=== PATIENT | female | born 2000 | race Caucasian/White ===

== ENCOUNTER 2021-12-03 21:56 | Emergency (ER) | payer OTHER, SELFPAY ==
[2021-12-03 21:58] VITALS: BP 143/90; PULSE 92; RESP 18; TEMP 36.2; O2SAT 100
[2021-12-03 22:14] VITALS: BP 133/100; PULSE 87; RESP 18; O2SAT 99
--- NOTE | 2021-12-03 22:24 | ED.FEVER ---
HPI - Fever General Chief Complaint: Fever Stated Complaint: 3 months preg, fever Time Seen by Provider: 12/03/21 22:03 Source: patient History of Present Illness HPI Narrative: 21-year-old female presents to the emergency room with complaints of a subjective fever for 7 days also complains of nausea with a couple episodes of vomiting multiple episodes of diarrhea over the past week. Patient reports being 3 months . 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 Denies dizziness lightheadedness nausea. No exposure to other ill contacts. Denies having shots for Covid or flu this season. Related Data Home Medications Medication Instructions Recorded Confirmed [id number] cap PO 12/03/21 [One-A-Day -1] Allergies Allergy/AdvReac Type Severity Reaction Status Date / Time No Known Allergies Allergy Mild Unverified 10/13/04 07:48 Review of Systems Review of Systems: CONSTITUTIONAL: Reports fever. EYES: Denies visual changes, redness, or discharge. ENT: Denies rhinorrhea, congestion, sore throat, or otalgia. CARDIOVASCULAR: Denies chest pain, palpitations, or edema. RESPIRATORY: Denies cough or dyspnea. GASTROINTESTINAL: Denies abdominal pain, nausea, vomiting, or diarrhea. GENITOURINARY: Denies dysuria or hematuria. SKIN: Denies rash or itching. MUSCULOSKELETAL: Denies back pain, joint pain, or myalgia. NEUROLOGIC: Denies headache, numbness, dizziness, or weakness. PSYCHIATRIC: Denies anxiety or depression. Exam Narrative: GENERAL: Well-appearing, well-nourished, and in no acute distress. HEAD: Normocephalic, atraumatic. EYES: PERRLA and EOMI. ENT: Nares clear, no rhinorrhea or epistaxis. Mucous membranes moist. NECK: Supple. No adenopathy or masses. No carotid bruits or JVD CHEST: Clear to auscultation. No respiratory distress. No wheezes rales or rhonchi HEART: Regular rate and rhythm. No murmur heard. Normal peripheral pulses. ABDOMEN: Soft, nontender, nondistended, normal active bowel sounds. EXTREMITIES: Normal range of motion. No edema. SKIN: Warm, dry, no rash. NEURO: No focal deficits. Alert and oriented x3. PSYCH: Normal mood and affect. 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 COVID-19 and influenza tests both negative. UA is clean. Patient given a liter of fluid and Zofran for nausea. Vital Signs Vital signs: Vital Signs Temperature 36.2 C L 12/03/21 21:58 Pulse Rate 92 12/03/21 21:58 Respiratory Rate 18 12/03/21 21:58 Blood Pressure 143/90 H 12/03/21 21:58 Pulse Oximetry 100 12/03/21 21:58 Temperature 36.2 C L 12/03/21 21:58 Pulse Rate 87 12/03/21 22:14 Respiratory Rate 18 12/03/21 22:14 Blood Pressure 133/100 H 12/03/21 22:14 Pulse Oximetry 99 12/03/21 22:14 MDM - Fever Lab Data Result diagrams: 12/03/21 22:56 12/03/21 22:57 Labs: Lab Results 12/03/21 12/03/21 12/03/21 Range/Units 22:56 22:56 22:56 WBC 10.6 H (4.5-10.0) K/mm3 RBC 4.10 L (4.2-5.4) M/mm3 Hgb 12.5 (12.0-15.0) g/dL Hct 36.9 L (37.0-47.0) % MCV 90.0 (80-100) fl MCH 30.5 (26-34) pg MCHC 33.9 (32-36) g/dl RDW 12.8 (11.5-14.5) % Plt Count 206 (150-375) k/mm3 MPV 10.4 (7.4-10.4) fl Immature Gran % (Auto) 0.5 (0-0.5) % Neut % (Auto) 64.6 (45.5-73.1) % Lymph % (Auto) 27.9 (18.3-44.2) % [place] % (Auto) 5.7 (2.6-8.5) % Eos % (Auto) 1.0 (0-4.4) % Baso % (Auto) 0.3 (0.2-1.2) % Lymph # (Auto) 2.95 (0.9-3.2) K/mm3 [place] # (Auto) 0.6 (0.1-0.6) K/mm3 Eos # (Auto) 0.1 (0-0.3) K/mm3 Baso # (Auto) 0.0 (0.0-0.1) K/mm3 Abs Immat Gran (auto) 0.05 H (0.00-0.031) K/mm3 Absolute Neuts (auto) 6.8 H (1.3-6.7) K/mm3 Absolute Nucleated RBC 0.0 (0.0-0.012) K/mm3 Nucleated RBC % 0.0 (0.0-0.2) % Sodium (137-145) mmol/L Potassium (3.4-5.0)
[2021-12-03] MEDS: ONDANSETRON INJ 4 MG/2 ML VIAL IV PUSH (22:56)
[2021-12-03] MEDS: SODIUM CHLORIDE 0.9% IV 1,000 ML 999 ML IV CONT (22:56)
[2021-12-03 23:12] LABS: Basophils Percent Auto 0.3 % (0.2-1.2); Eosinophils Absolute Auto 0.1 K/mm3 (0-0.3); Hematocrit 36.9 % (37.0-47.0); Hemoglobin 12.5 g/dL (12.0-15.0); Immature Granulocyte Absolute 0.05 K/mm3 (0.00-0.031); Immature Granulocyte Percent A 0.5 % (0-0.5); Lymphocytes Absolute Auto 2.95 K/mm3 (0.9-3.2); Lymphocytes Percent Auto 27.9 % (18.3-44.2); Mean Corpuscular HGB Conc 33.9 g/dl (32-36); Mean Corpuscular Hemoglobin 30.5 pg (26-34); Mean Platelet Volume 10.4 fl (7.4-10.4); Monocytes Absolute Auto 0.6 K/mm3 (0.1-0.6); Monocytes Percent Auto 5.7 % (2.6-8.5); Neutrophils Absolute Auto 6.8 K/mm3 (1.3-6.7); Neutrophils Percent Auto 64.6 % (45.5-73.1); Platelet Count Result 206 k/mm3 (150-375); Red Cell Distribution Width 12.8 % (11.5-14.5); White Blood Count 10.6 K/mm3 (4.5-10.0)
[2021-12-03 23:30] LABS: Alanine Aminotransferase 12 U/L (4-35); Albumin Level 4.1 g/dL (3.5-5.1); Alkaline Phosphatase 46 U/L (38-126); Anion Gap 11 mmol/L (8-16); Aspartate Amino Transferase 20 U/L (14-36); Bilirubin,Total 0.3 mg/dL (0.2-1.3); Blood Urea Nitrogen 12 mg/dL (7-17); Calcium 9.2 mg/dL (8.4-10.2); Carbon Dioxide 21 mmol/L (22-30); Chloride 105 mmol/L (98-107); Estimated Glomerular Filt Rate > 60; Glucose 109 mg/dL (65-110); Potassium 3.8 mmol/L (3.4-5.0); Sodium 137 mmol/L (137-145)
[2021-12-03 23:54] LABS: Influenza A QL RT-PCR Negative (Negative); Influenza B QL RT-PCR Negative (Negative); SARS-CoV-2 RNA PCR Negative
[2021-12-04 00:07] LABS: Add Urine Microscopic? NO; Appearance Urine Clear (Clear); Bilirubin Urine Negative (Negative); Blood Urine Negative (Negative); Color Urine Yellow (Yellow); Glucose Urine UA Negative (Negative); Ketones Urine Negative (Negative); Leukocyte Esterase Ur Negative LEU/UL (Negative); Nitrate Urine Negative (Negative); Protein Urine Negative (Negative); Specific Grav Ur 1.026 (1.001-1.035); Urobilinogen Urine Negative mg/dL (<2.0)
[2021-12-04 00:25] VITALS: BP 128/79; PULSE 75; RESP 18; O2SAT 98
== END 2021-12-04 00:27 | disposition home or self-care (01) ==
PROVIDERS: Emergency Provider Nurse Practitioner Family; PCP Physician Assistant
DX: K52.9 Noninfective gastroenteritis and colitis, unspecified (principal); Z20.822 Contact with and (suspected) exposure to COVID-19
CPT/HCPCS: 36415; 80053; 81003; 85025; 87502; 96361; 96374; 99284; C9803; J2405; J7030; U0003; U0005

== ENCOUNTER 2021-12-13 23:53 | Emergency (ER) | payer OTHER, SELFPAY ==
[2021-12-14 00:02] VITALS: BP 143/82; PULSE 81; RESP 18; TEMP 36.9; O2SAT 100
[2021-12-14 01:35] LABS: Basophils Percent Auto 0.3 % (0.2-1.2); Eosinophils Absolute Auto 0.1 K/mm3 (0-0.3); Hematocrit 34.7 % (37.0-47.0); Hemoglobin 11.7 g/dL (12.0-15.0); Immature Granulocyte Absolute 0.05 K/mm3 (0.00-0.031); Immature Granulocyte Percent A 0.6 % (0-0.5); Lymphocytes Absolute Auto 2.27 K/mm3 (0.9-3.2); Lymphocytes Percent Auto 25.2 % (18.3-44.2); Mean Corpuscular HGB Conc 33.7 g/dl (32-36); Mean Corpuscular Hemoglobin 30.5 pg (26-34); Mean Corpuscular Volume 90.4 fl (80-100); Mean Platelet Volume 10.4 fl (7.4-10.4); Monocytes Absolute Auto 0.5 K/mm3 (0.1-0.6); Neutrophils Percent Auto 66.9 % (45.5-73.1); Platelet Count Result 190 k/mm3 (150-375); Red Blood Count 3.84 M/mm3 (4.2-5.4); Red Cell Distribution Width 12.8 % (11.5-14.5)
[2021-12-14 01:39] LABS: Add Urine Microscopic? NO; Appearance Urine Clear (Clear); Bilirubin Urine Negative (Negative); Blood Urine Negative (Negative); Color Urine Colorless (Yellow); Glucose Urine UA Negative (Negative); Ketones Urine Negative (Negative); Leukocyte Esterase Ur Negative LEU/UL (Negative); Nitrate Urine Negative (Negative); Protein Urine Negative (Negative); Specific Grav Ur 1.006 (1.001-1.035); Urobilinogen Urine Negative mg/dL (<2.0)
[2021-12-14 01:44] LABS: Alanine Aminotransferase 18 U/L (4-35); Albumin Level 4.1 g/dL (3.5-5.1); Alkaline Phosphatase 41 U/L (38-126); Anion Gap 5 mmol/L (8-16); Aspartate Amino Transferase 21 U/L (14-36); Bilirubin,Total 0.4 mg/dL (0.2-1.3); Blood Urea Nitrogen 10 mg/dL (7-17); Calcium 9.1 mg/dL (8.4-10.2); Carbon Dioxide 22 mmol/L (22-30); Chloride 109 mmol/L (98-107); Estimated CRCL calculation 199 ml/min; Estimated Glomerular Filt Rate > 60; Glucose 101 mg/dL (65-110); Sodium 136 mmol/L (137-145)
--- NOTE | 2021-12-14 02:10 | ED.FEMALEGU ---
HPI - Female Genitourinary General Chief complaint: Vaginal Bleeding Stated complaint: Vag Bleeding, 13 weeks preg Time Seen by Provider: 12/14/21 01:01 Source: patient History of Present Illness HPI Narrative: Patient presents with concerns for vaginal bleeding. Patient noted blood on the tissue paper when she urinated as well as some right-sided pelvic pain so she came to ER for evaluation. Her has been going well she has had prior ultrasound to confirm intrauterine . Treatment/time on arrival to the ER is not noted any additional bleeding. Denies any lightheadedness or dizziness. Denies any nausea or vomiting Related Data Home Medications Medication Instructions Recorded Confirmed [id number] cap PO 12/03/21 [One-A-Day -1] Allergies Allergy/AdvReac Type Severity Reaction Status Date / Time No Known Allergies Allergy Mild Unverified 10/13/04 07:48 Review of Systems Review of Systems: CONSTITUTIONAL: Denies fever, chills, or sweats. EYES: Denies visual changes, redness, or discharge. ENT: Denies rhinorrhea, congestion, sore throat, or otalgia. CARDIOVASCULAR: Denies chest pain, palpitations, or edema. RESPIRATORY: Denies cough or dyspnea. GASTROINTESTINAL: Denies nausea, vomiting, or diarrhea. GENITOURINARY: Denies dysuria or hematuria. SKIN: Denies rash or itching. MUSCULOSKELETAL: Denies back pain, joint pain, or myalgia. NEUROLOGIC: Denies headache, numbness, dizziness, or weakness. PSYCHIATRIC: Denies anxiety or depression. All systems reviewed & are unremarkable except as noted in HPI and below Exam Narrative: GENERAL: Well-appearing, well-nourished, and in no acute distress. HEAD: Normocephalic, atraumatic. EYES: PERRLA and EOMI. ENT: Nares clear, no rhinorrhea or epistaxis. Mucous membranes moist. NECK: Supple. No masses. No JVD CHEST: Clear to auscultation. No respiratory distress. No wheezes rales or rhonchi HEART: Regular rate and rhythm. No murmur heard. Normal peripheral pulses. ABDOMEN: Minimal tenderness with deep palpation in the lower abdomen soft, nondistended, normal active bowel sounds. EXTREMITIES: Normal range of motion. No edema. SKIN: Warm, dry, no rash. NEURO: No focal deficits. Alert and oriented x3. PSYCH: Normal mood and affect. Course Vital Signs Vital signs: Vital Signs Temperature 36.9 C 12/14/21 00:02 Pulse Rate 81 12/14/21 00:02 Respiratory Rate 18 12/14/21 00:02 Blood Pressure 143/82 H 12/14/21 00:02 Pulse Oximetry 100 12/14/21 00:02 Temperature 36.9 C 12/14/21 00:02 Pulse Rate 84 12/14/21 04:45 Respiratory Rate 18 12/14/21 04:45 Blood Pressure 133/77 12/14/21 04:45 Pulse Oximetry 100 12/14/21 04:45 Procedures Other Procedure Procedure 1: Other Procedure: Transabdominal ultrasound performed there is good movement heart rate of one fifty single intrauterine no masses noted on the adnexa No free fluid noted in the pelvis findings consistent with single intrauterine MDM - Female Genitourinary MDM Narrative Medical decision making narrative: H&P as above, vss, pt looks clinically well, exam reassuring, labs reassuring, img reassuring, additional labs/img considered, symptomatic relief available as needed, on reevaluation pt continues to looks clinically well. Suspect first trimester bleeding, dns active miscarriage, ectopic, significant hemorrhage. plan to tx/monitor as op w/ OB f/u findings/plan discussed with pt, pt agree/comfortable with plan, return precautions given Lab Data Result diagrams: 12/14/21 01:28 12/14/21 01:28 Labs: Lab Results 12/14/21 12/14/21 12/14/21 Range/Units 01:28 01:28 01:28 WBC 9.0 (4.5-10.0) K/mm3 RBC 3.84 L (4.2-5.4) M/mm3 Hgb 11.7 L (12.0-15.0) g/dL Hct 34.7 L (37.0-47.0) % MCV 90.4 (80-100) fl MCH 30.5 (26-34) pg MCHC 33.7 (32-36) g/dl RDW
[2021-12-14] MEDS: SODIUM CHLORIDE 0.9% IV 1,000 ML 999 ML IV CONT (02:50)
[2021-12-14 04:45] VITALS: BP 133/77; PULSE 84; RESP 18; O2SAT 100
== END 2021-12-14 04:48 | disposition home or self-care (01) ==
PROVIDERS: Emergency Provider Emergency Medicine; PCP Physician Assistant
DX: O20.0 Threatened abortion (principal); Z3A.13 13 weeks gestation of pregnancy
CPT/HCPCS: 36415; 80053; 81003; 84702; 85025; 85461; 96360; 96361; 99283; J7030

== ENCOUNTER 2022-03-21 20:39 | Emergency (ER) | payer OTHER, SELFPAY ==
[2022-03-21 21:05] VITALS: BP 152/88; PULSE 101; RESP 18; TEMP 36.8; O2SAT 100
[2022-03-21 21:51] VITALS: O2SAT 100
--- NOTE | 2022-03-21 21:51 | ED.URI ---
HPI - URI/Sore Throat General Chief Complaint: Upper Respiratory Infection Stated Complaint: bodyaches 27wks pg Time Seen by Provider: 03/21/22 21:14 History of Present Illness HPI Narrative: 22-year-old female who is 27 weeks presents with URI symptoms, states she has been having runny nose, chills and body aches, and that her brother has also been sick, symptoms have been going on for about 2 days. No nausea or vomiting. Has been taking some Tylenol at home with some improvement Related Data Home Medications Medication Instructions Recorded Confirmed vit 168-iron 27 mg-folic cap PO 12/03/21 acid 800 mcg-omega3 235 mg capsule (One-A-Day -1) aspirin 81 mg tablet 81 mg PO DAILY 03/21/22 Allergies Allergy/AdvReac Type Severity Reaction Status Date / Time No Known Allergies Allergy Mild Unverified 03/21/22 21:08 Review of Systems Review of Systems: CONST: Chills HEENT: Runny nose C/V: No chest pain RESP: No cough GI: Reports abdominal pain, nausea, vomiting[, diarrhea] : No dysuria. M/S: No joint pain. SKIN: No rash. NEURO: [No headache or focal numbness or weakness] PSYCH: [No depression] [facility] Past Medical History Medical History (Updated 03/21/22 @ 23:26 by Eileen Ferris MD) Hypertension Social History Social History (Updated 03/21/22 @ 23:21 by Eileen Ferris MD) Smoking status: Never smoker Exam Narrative: EXAMINATION OF ORGAN SYSTEMS/BODY AREAS: Constitutional: Vital signs per nursing GENERAL:[No acute distress, non-toxic appearing.] HEAD: Normal with no signs of head trauma. EYES: EOMI, conjunctiva normal ENT: Rhinorrhea LUNGS: Nonlabored breathing. HEART: Minimally tachycardic ABD: [Soft], [nontender to palpation], gravid EXT: Normal range of motion SKIN: [No rashes or lesions.] NEURO: [Alert and oriented x 3. No gross focal sensory or strength deficits.] PSYCH: Normal affect Course Vital Signs Vital signs: Vital Signs Temperature 98.3 F 03/21/22 21:05 Pulse Rate 101 H 03/21/22 21:05 Respiratory Rate 18 03/21/22 21:05 Blood Pressure 152/88 H 03/21/22 21:05 Pulse Oximetry 100 03/21/22 21:05 Oxygen Delivery Room Air 03/21/22 21:05 Temperature 98.3 F 03/21/22 21:05 Pulse Rate 101 H 03/21/22 21:05 Respiratory Rate 18 03/21/22 21:05 Blood Pressure 152/88 H 03/21/22 21:05 Pulse Oximetry 100 03/21/22 21:05 Oxygen Delivery Room Air 03/21/22 21:05 MDM - URI/Sore Throat MDM Narrative Medical decision making narrative: 22-year-old female presenting with URI symptoms, vital signs within acceptable limits, she is well-appearing on exam in no distress, swabs obtained and she is positive for COVID. Stable for discharge home at this time, she is given strict return precautions and urged to follow-up with her doctor, I have asked her to call local hospitals for monoclonal antibody infusion given she is high risk with her . Discharge Plan Discharge Clinical Impression: COVID-19 Patient Disposition: Home, Self-Care Condition: Stable Instructions: Antibiotic Form, COVID-19 (Coronavirus Disease 2019) (ED) Additional Instructions: Please call your doctor in the morning, you would likely benefit from monoclonal antibody infusion for your COVID infection; please ask your doctor if they are able to order the infusion for you, or call local hospitals to see if you can schedule the infusion. Come back if you feel worse or have any trouble breathing or keeping food/water down, stay hydrated and take tylenol as you need for symptoms. Prescriptions: No Action aspirin 81 mg Tablet 81 mg PO DAILY One-A-Day -1 27 mg iron- 800 mcg-235 mg Capsule PO Follow-up/Referrals: Ileana,JJ Tierney [Primary Care Provider] -
[2022-03-21 23:02] LABS: Influenza A QL RT-PCR Negative (Negative); Influenza B QL RT-PCR Negative (Negative); SARS-CoV-2 RNA PCR Positive
[2022-03-21 23:27] VITALS: BP 147/83; PULSE 96; RESP 22; TEMP 36.3; O2SAT 98
== END 2022-03-21 23:33 | disposition home or self-care (01) ==
PROVIDERS: Emergency Provider Emergency Medicine; PCP Physician Assistant
DX: O98.512 Other viral diseases complicating pregnancy, second trimester (principal); U07.1 COVID-19; O16.2 Unspecified maternal hypertension, second trimester; Z3A.27 27 weeks gestation of pregnancy; Z79.82 Long term (current) use of aspirin
CPT/HCPCS: 87502; 99283; C9803; U0003; U0005

== ENCOUNTER 2022-05-04 17:20 | Observation (INO) | payer OTHER, SELFPAY ==
[2022-05-04] VITALS (11 sets, daily range): BP systolic 116–145; BP diastolic 56–79; PULSE 83–116; TEMP 36.6; BMI 51.6
[2022-05-04 18:17] LABS: Appearance Urine Slightly Cloudy (Clear); Bilirubin Urine Negative (Negative); Blood Urine Negative (Negative); Glucose Urine UA Negative (Negative); Ketones Urine Negative (Negative); Leukocyte Esterase Ur Negative LEU/UL (Negative); Nitrate Urine Negative (Negative); Protein Urine Negative (Negative); Specific Grav Ur 1.015 (1.001-1.035); Urobilinogen Urine 0.2 mg/dL (<2.0)
--- NOTE | 2022-05-04 18:20 | OBADM ---
This patient, Gwendolyn Desouza, admitted to the OB room OB Post 115 for observation. Patient/family oriented to hospital policies and general routines including ID bracelet, bed and alarms, visiting hours, pain management, procedures, bathroom and other care routines, personal items, smoking policy, room service/diet, and visiting hours. Patient/Family are encouraged to report perceived risks to care and to ask questions if they do not understand what they are told or what they should do.
[2022-05-04 18:23] LABS: Amorphous Sediment Urine Few; Bacteria Urine Trace /hpf; RBC Urine 0-2 /hpf (0-2); Squamous Epithelial Cell Urine Occasional /hpf (Few); WBC Urine 0-3 /hpf
[2022-05-04 18:31] LABS: Add Urine Microscopic? NO; Color Urine Light Yellow (Yellow)
[2022-05-04] MEDS: HYDROcodone/acetaminophen (*CRX) 5-325 MG TABLET 1 TAB PO (19:21)
[2022-05-04] MEDS: NIFEdipine 10 MG CAPSULE PO (19:22)
--- NOTE | 2022-05-21 09:15 | P.PNOB_ITS ---
OB - Triage/Final Diagnosis Visit Information Comments/Additional reasons for admission: I have assessed the risk for this patient, Gwendolyn Desouza, and determined that she would benefit from observation care. Evaluation Laboratory results: Laboratory Tests 05/04/22 18:09 Urine Color Light yellow Urine Appearance Slightly cloudy Urine pH 7.0 Ur Specific [place] 1.015 Urine Protein Negative Urine Glucose (UA) Negative Urine Ketones Negative Ur Blood (Man) Negative Urine Nitrate Negative Urine Bilirubin Negative Urine Urobilinogen 0.2 Leukocyte Esterase Rfl Negative Urine RBC 0-2 Urine WBC 0-3 Ur Squamous Epith Cells Occasional Amorphous Sediment Few H Urine Bacteria Trace Hyaline Casts 1-2 Final Diagnosis (1) Vaginal bleeding during : Code(s): O46.90 - Antepartum hemorrhage, unspecified, unspecified trimester Status: Acute
== END 2022-05-04 21:06 | disposition home or self-care (01) ==
PROVIDERS: Obstetrics & Gynecology; Admitting Provider Obstetrics & Gynecology; PCP Physician Assistant; Visit Provider Obstetrics & Gynecology
DX: O46.93 Antepartum hemorrhage, unspecified, third trimester (principal); Z3A.33 33 weeks gestation of pregnancy
CPT/HCPCS: 81003; A9270; G0378; G0379

== ENCOUNTER 2022-06-05 04:42 | Inpatient (IN) | payer OTHER, SELFPAY ==
[2022-06-05] VITALS (46 sets, daily range): BP systolic 108–151; BP diastolic 48–90; PULSE 68–101; RESP 17; TEMP 36.5–36.9; O2SAT 100; BMI 53.3
--- NOTE | 2022-06-05 04:47 | LDADM ---
This patient, Gwendolyn Desouza, was admitted to Labor/Delivery/Recovery 106 on 06/05/22 at 04:42. Plans for labor, pain management and were discussed with patient. Patient/family oriented to hospital policies and general routines including ID bracelet, bed and alarms, visiting hours, pain management, procedures, bathroom and other care routines, personal items, smoking policy, room service/diet and guest tray routines, infant security routines, and visiting hours. Patient/Family are encouraged to report perceived risks to care and to ask questions if they do not understand what they are told or what they should do. See OBIX for further documentation.
--- OUTSIDE RECORDS SUMMARY | 2022-06-05 04:49 | XMS_ITS | Encounter Summary ---
:2000 Author Care Team Providers Name Role Phone Ana Rosa GARDNER Primary Care Provider [phone] Reason for Visit None recorded. Assessment and Plan 1. Pre-existing maternal disease compli cating ? US, obstetric, follow-up ? US, obstetric, biophysical profile + non-stress test Discussion Note: None recorded.Patient educational handouts: No information available. Plan of Care Reminders Provider Appointments None recorded. ? ? Lab None recorded. ? ? Referral None recorded. ? ? Procedures None recorded. ? ? Surgeries None recorded. ? ? Imaging US, Obstetric, Follow-up 05/24/2022 [place] ? US, Obstetric, Biophysical Profile + [place] Non-stress Test Medications Name Start Date ? ? aspirin ? nifedipine ER 30 mg tablet,extended release 24 hr ? TAKE 1 TABLET BY MOUTH EVERY DAY ? Medications Administered None recorded. Vitals None recorded. Results Lab Results None recorded. Allergies Code Code System Name Reaction Severity Onset NKDA ? ? ? Problems Name Status Onset Date Source ? Maternal Obesity Complicating , Childbirth and the Acti ve 11/23/2021 ? Puerperium, Antepartum Body Mass Index 40+ - Severely Obese Active 11/23/2021 ? Active 12/07/2021 ? Covid-19 Active 03/21/2022 ? Group B Streptococcus Carrier Active 05/29/2022 ? Anxiety Active ? ? Hypertension Complicating , Childbirth and the
--- OUTSIDE RECORDS SUMMARY | 2022-06-05 04:49 | XMS_ITS | Encounter Summary ---
:2000 Author Care Team Providers Name Role Phone Ana Rosa GARDNER Primary Care Provider [phone] Reason for Visit None recorded. Assessment and Plan 1. Maternal obesity complicating pregna ncy, childbirth and the puerperium, antepartum ? non-stress test Discussion Note: None recorded.Patient educational handouts: No information available. Plan of Care Reminders Provider Appointments None recorded. ? ? Lab None recorded. ? ? Referral None recorded. ? ? Procedures None recorded. ? ? Surgeries None recorded. ? ? Imaging Non-stress Test 05/31/2022 [place] Medications Name Start Date ? ? aspirin [...] ? Hypertension Complicating , Childbirth and the Active ? ? Puerperium, Antepartum Procedures Date Name Performed by ?
--- OUTSIDE RECORDS SUMMARY | 2022-06-05 04:49 | XMS_ITS | Encounter Summary ---
:2000 Author Care Team Providers Name Role Phone Ana Rosa GARDNER Primary Care Provider [phone] Reason for Visit None recorded. Assessment and Plan 1. Maternal obesity complicating pregna ncy, childbirth and the puerperium, antepartum ? US, obstetric, biophysical profile + non-stress test Discussion Note: None recorded.Patient educational handouts: No information available. Plan of Care Reminders Provider Appointments None recorded. ? ? Lab None recorded. ? ? Referral None recorded. ? ? Procedures None recorded. ? ? Surgeries None recorded. ? ? Imaging US, Obstetric, Biophysical Profile + [place] Non-stress Test Medications Name Start Date ? [...]
--- OUTSIDE RECORDS SUMMARY | 2022-06-05 04:49 | XMS_ITS | Encounter Summary ---
:2000 Author Care Team Providers Name Role Phone Ana Rosa GARDNER Primary Care Provider [phone] Reason for Visit None recorded. Assessment and [...] None recorded. ? ? Imaging Non-stress Test 05/17/2022 [place] Medications Name Start Date ? ? aspirin [...]
--- OUTSIDE RECORDS SUMMARY | 2022-06-05 04:49 | XMS_ITS | Encounter Summary ---
:2000 Author Care Team Providers Name Role Phone Ana Rosa GARDNER Primary Care Provider [phone] Reason for Visit OB visit Assessment and Plan Assessment Note Patient is ___weeks . Discussed plan. 1. Group B Streptococcus carrier 2. Hypertension complicating , childbirth and the puerperium, antepartum Discussion Note: None recorded.Patient educational handouts: No information available. Plan of Care Reminders Provider Appointments None recorded. ? ? Lab None recorded. ? ? Referral None recorded. ? ? Procedures None recorded. ? ? Surgeries None recorded. ? ? Imaging None recorded. ? ? Medications Name Start Date ? ? aspirin ? nifedipine ER 30 mg tablet,extended release 24 hr ? TAKE 1 TABLET BY MOUTH EVERY DAY ? Medications Administered None recorded. Vitals Height Weight BMI Blood Pressure 5 ft 4 in 319 lbs 54.8 kg/m2 (1) 150/82 mm[H g] (2) 135/77 mm[Hg ] Results Lab Results None recorded. Allergies Code Code System Name Reaction Severity Onset NKDA ? ? ? Problems Name Status Onset Date Source ? Maternal Obesity Complicating , Childbirth and the Acti ve 11/23/2021 ? Puerperium, Antepartum Body Mass Index 40+ - Severely Obese Active 11/23/2021 ? Active 12/07/2021 ? Covid-19 Active 03/21/2022 ? Group B Streptococcus Carrier Active 0
--- OUTSIDE RECORDS SUMMARY | 2022-06-05 04:49 | XMS_ITS | Encounter Summary ---
:2000 Author Care Team Providers Name Role Phone Ana Rosa GARDNER Primary Care Provider [phone] Reason for Visit None recorded. Assessment and Plan 1. Chronic hypertension complicating AN D/OR reason for care during ? non-stress test Discussion Note: None recorded.Patient educational handouts: No information available. Plan of Care Reminders Provider Appointments None recorded. ? ? Lab None recorded. ? ? Referral None recorded. ? ? Procedures None recorded. ? ? Surgeries None recorded. ? ? Imaging Non-stress Test 05/24/2022 [place] Medications Name Start Date ? ? aspirin [...] Antepartum Procedures Date Name Performed by ? 10/15/2011 Procedu
--- OUTSIDE RECORDS SUMMARY | 2022-06-05 04:49 | XMS_ITS | Encounter Summary ---
:2000 Author Care Team Providers Name Role Phone Ana Rosa GARDNER Primary Care Provider [phone] Reason for Visit OB visit Assessment and Plan 1. Hypertension complicating , childbirth and the puerperium, antepartum 2. Maternal obesity complicating pregna ncy, childbirth and the puerperium, antepartum Discussion Note: [...] BMI Blood Pressure 5 ft 4 in 320 lbs 54.9 kg/m2 131/83 mm[Hg] Results Lab Results None recorded. Allergies Code [...]
--- OUTSIDE RECORDS SUMMARY | 2022-06-05 04:49 | XMS_ITS | Encounter Summary ---
:2000 Author Care Team Providers Name Role Phone Ana Rosa GARDNER Primary Care Provider [phone] Reason for Visit OB visit OB [id number] EDC 06/17/2022 LMP 09/10/2021 Assessment and Plan Assessment Note Patient is __34_weeks . Discuss ed plan. 1. Routine care Discussion Note: None recorded.Patient educational handouts: No [...] BMI Blood Pressure 5 ft 4 in 310 lbs 53.2 kg/m2 138/82 mm[Hg] Results Lab Results None recorded. Allergies [...] Anxiety Active ? ? Hypertension Complicating , Childbir
--- OUTSIDE RECORDS SUMMARY | 2022-06-05 04:49 | XMS_ITS | Encounter Summary ---
:2000 Author Care Team Providers Name Role Phone Ana Rosa GARDNER Primary Care Provider [phone] Reason for Visit None recorded. Assessment and Plan 1. -induced hypertension ? US, obstetric, biophysical profile + non-stress test Discussion Note: None recorded.Patient educational handouts: No information available. Plan of Care Reminders Provider Appointments None recorded. ? ? Lab None recorded. ? ? Referral None recorded. ? ? Procedures None recorded. ? ? Surgeries None recorded. ? ? Imaging US, Obstetric, Biophysical Profile + [address] [place] [address] Non-stress Test Medications Name Start Date ? [...]
--- OUTSIDE RECORDS SUMMARY | 2022-06-05 04:49 | XMS_ITS | Encounter Summary ---
:2000 Author Care Team Providers Name Role Phone Ana Rosa GARDNER Primary Care Provider [phone] Reason for Visit OB visit Assessment and Plan Assessment Note Patient is ___weeks . Discussed plan. 1. Hypertension complicating , childbirth and the [...] BMI Blood Pressure 5 ft 4 in 317 lbs 54.4 kg/m2 (1) 148/86 mm[H g] (2) 142/88 mm[Hg ] Results Lab Results None recorded. Allergies Code Code System Name Reaction Severity Onset NKDA ? ? ? Problems Name Status Onset Date Source ? Maternal Obesity Complicating , Childbirth and the Acti ve 11/23/2021 ? Puerperium, Antepartum Body Mass Index 40+ - Severely Obese Active 11/23/2021 ? Active 12/07/2021 ? Covid-19 A
--- OUTSIDE RECORDS SUMMARY | 2022-06-05 04:49 | XMS_ITS ---
:2000 Author Care Team Providers Name Role Phone AMY GARDNER Primary Care Provider [phone] Allergies Code Code System Name Reaction Severity Status Onset NKDA ? Medications Name Status Start Date Stop Date ? ? amoxicillin 875 mg-potassium clavulanate 125 mg tablet Completed ? 11/23/2021 TAKE 1 TABLET BY MOUTH EVERY 12 HOURS FOR 7 DAYS DIRECTED aspirin Active ? Not available Aurovela Fe 1-20 (28) 1 mg-20 mcg (21)/75 mg (7) tablet Complete d ? 11/23/2021 TAKE 1 TABLET BY MOUTH EVERY DAY DIRECTED fluconazole 150 mg tablet Completed ? 2021 TAKE 1 TABLET BY MOUTH EVERY DAY NEEDED ibuprofen 800 mg tablet Completed ? 11/23/19 22 TAKE 1 TABLET BY MOUTH EVERY 8 HOURS WITH FOOD NEEDED loratadine 10 mg tablet Completed ? 11/23/19 22 TAKE 1 TABLET BY MOUTH DAILY NEEDED methylprednisolone 4 mg tablets in a dose pack Completed ? 11/23/2021 FOLLOW PACKAGE DIRECTIONS metronidazole 500 mg tablet Completed ? 06/2022 TAKE 1 TABLET BY MOUTH EVERY 12 HOURS FOR 7 DAYS DIRECTED nifedipine ER 30 mg tablet,extended release 24 hr Active ? Not available TAKE 1 TABLET BY MOUTH EVERY DAY nitrofurantoin monohydrate/macrocrystals 100 mg capsule Complete d ? 11/23/2021 TAKE 1 CAPSULE BY MOUTH EVERY 12 HOURS FOR 10 DAYS nystatin 100,000 unit/gram topical cream Completed ? 11/23/2021 APPLY TOPICALLY TO THE AFFECTED AREA TWICE DAILY FOR 7 DAYS ondansetron 4 mg disintegrating tablet Completed ? 11/23/2021 DISSOLVE 1 TABLET ON THE TONGUE EVERY 8 HOURS NEEDED phenazopyridine 100 mg tablet Completed ?
--- OUTSIDE RECORDS SUMMARY | 2022-06-05 04:49 | XMS_ITS | Encounter Summary ---
:2000 Author Care Team Providers Name Role Phone Ana Rosa GARDNER Primary Care Provider [phone] Reason for Visit None recorded. Assessment and Plan 1. Chronic hypertension complicating AN D/OR reason for care during ? US, obstetric, biophysical profile + non-stress test Discussion Note: None recorded.Patient educational handouts: No information available. Plan of Care Reminders Provider Appointments None recorded. ? ? Lab None recorded. ? ? Referral None recorded. ? ? Procedures None recorded. ? ? Surgeries None recorded. ? ? Imaging US, Obstetric, Biophysical Profile + 2 [place] Non-stress Test Medications Name Start Date ? [...]
--- OUTSIDE RECORDS SUMMARY | 2022-06-05 04:50 | XMS_ITS | Encounter Summary ---
:2000 Author Care Team Providers Name Role Phone Ana Rosa GARDNER Primary Care Provider [phone] Reason for Visit OB visit Assessment and [...] BMI Blood Pressure 5 ft 4 in 313 lbs 53.7 kg/m2 138/80 mm[Hg] Results Lab Results None recorded. Allergies [...]
--- OUTSIDE RECORDS SUMMARY | 2022-06-05 04:51 | XMS_ITS | Encounter Summary ---
:2000 Author Care Team Providers Name Role Phone Ana Rosa GARDNER Primary Care Provider [phone] Reason for Visit None recorded. Assessment and Plan 1. Hypertension complicating , childbirth and the puerperium, antepartum ? non-stress test Discussion Note: None recorded.Patient educational handouts: No information available. Plan of Care Reminders Provider Appointments None recorded. ? ? Lab None recorded. ? ? Referral None recorded. ? ? Procedures None recorded. ? ? Surgeries None recorded. ? ? Imaging Non-stress Test 05/03/2022 [place] Medications Name Start Date ? ? aspirin [...]
--- OUTSIDE RECORDS SUMMARY | 2022-06-05 04:53 | XMS_ITS | Encounter Summary ---
:2000 Author Care Team Providers Name Role Phone Ana Rosa GARDNER Primary Care Provider [phone] Reason for Visit None recorded. Assessment and Plan 1. Maternal obesity complicating pregna ncy, childbirth and the puerperium, antepartum ? US, obstetric, follow-up Discussion Note: None recorded.Patient educational handouts: No information available. Plan of Care Reminders Provider Appointments None recorded. ? ? Lab None recorded. ? ? Referral None recorded. ? ? Procedures None recorded. ? ? Surgeries None recorded. ? ? Imaging US, Obstetric, Follow-up 03/29/2022 [place] Medications Name Start Date ? ? aspirin [...] ? ? Puerperium, Antepartum Procedures Date Name Perform
--- OUTSIDE RECORDS SUMMARY | 2022-06-05 04:53 | XMS_ITS | Encounter Summary ---
:2000 Author Care Team Providers Name Role Phone Ana Rosa GARDNER Primary Care Provider [phone] Reason for Visit None recorded. Assessment and Plan 1. Chronic hypertension complicating AN D/OR reason for care during ? non-stress test Discussion Note: None recorded.Patient educational handouts: No information available. Plan of Care Reminders Provider Appointments None recorded. ? ? Lab None recorded. ? ? Referral None recorded. ? ? Procedures None recorded. ? ? Surgeries None recorded. ? ? Imaging Non-stress Test 04/26/2022 [place] Medications Name Start Date ? ? aspirin [...] Procedures Date Name Performed by ? 10/15/2011 Procedur
--- OUTSIDE RECORDS SUMMARY | 2022-06-05 04:53 | XMS_ITS | Encounter Summary ---
:2000 Author Care Team Providers Name Role Phone Ana Rosa GARDNER Primary Care Provider [phone] Reason for Visit OB visit Assessment and Plan 1. Routine care 2. COVID-19 Discussion Note: None recorded.Patient educational handouts: No [...] BMI Blood Pressure 5 ft 4 in 302 lbs 51.8 kg/m2 142/80 mm[Hg] Results Lab Results None recorded. Allergies [...]
--- OUTSIDE RECORDS SUMMARY | 2022-06-05 04:53 | XMS_ITS | Encounter Summary ---
:2000 Author Care Team Providers Name Role Phone Ana Rosa GARDNER Primary Care Provider [phone] Reason for Visit OB visit Assessment and [...] BMI Blood Pressure 5 ft 4 in 305 lbs 52.4 kg/m2 (1) 151/80 mm[H g] (2) 148/80 mm[Hg ] Results Lab Results None recorded. [...]
[2022-06-05 05:33] LABS: Basophils Percent Auto 0.3 % (0.2-1.2); Eosinophils Percent Auto 0.4 % (0-4.4); Hematocrit 37.5 % (37.0-47.0); Hemoglobin 12.4 g/dL (12.0-15.0); Immature Granulocyte Absolute 0.04 K/mm3 (0.00-0.031); Immature Granulocyte Percent A 0.4 % (0-0.5); Lymphocytes Percent Auto 23.9 % (18.3-44.2); Mean Corpuscular HGB Conc 33.1 g/dl (32-36); Mean Corpuscular Volume 90.8 fl (80-100); Mean Platelet Volume 11.9 fl (7.4-10.4); Monocytes Absolute Auto 0.5 K/mm3 (0.1-0.6); Monocytes Percent Auto 5.2 % (2.6-8.5); Neutrophils Absolute Auto 6.7 K/mm3 (1.3-6.7); Neutrophils Percent Auto 69.8 % (45.5-73.1); Platelet Count Result 208 k/mm3 (150-375); Red Blood Count 4.13 M/mm3 (4.2-5.4); Red Cell Distribution Width 13.8 % (11.5-14.5); White Blood Count 9.6 K/mm3 (4.5-10.0)
[2022-06-05 05:45] LABS: Alanine Aminotransferase 11 U/L (6-35); Albumin Level 3.7 g/dL (3.5-5.1); Alkaline Phosphatase 149 U/L (38-126); Anion Gap 9 mmol/L (8-16); Aspartate Amino Transferase 20 U/L (14-36); Bilirubin,Total 0.4 mg/dL (0.2-1.3); Blood Urea Nitrogen 10 mg/dL (7-17); Calcium 9.5 mg/dL (8.4-10.2); Carbon Dioxide 22 mmol/L (22-30); Chloride 103 mmol/L (98-107); Estimated CRCL calculation 176 ml/min; Estimated Glomerular Filt Rate > 60; Glucose 109 mg/dL (65-110); Potassium 3.8 mmol/L (3.4-5.0); Sodium 134 mmol/L (137-145)
[2022-06-05] MEDS: LACTATED RINGERS 1,000 ML 125 ML IV CONT (06:46)
[2022-06-05] MEDS: AMPICILLIN 2 GM/NS 100 ML 2 GM/100 ML BAG IVPB (06:46)
[2022-06-05] MEDS: DINOPROSTONE 10 MG VAG INSERT VAGINAL (06:46)
[2022-06-05 08:01] LABS: Rapid Plasma Reagin Non-Reactive (NonReactive)
[2022-06-05] MEDS: AMPICILLIN 1 GM/NS 50 ML 1 GM/50 ML BAG IVPB ×4 (10:46→22:53)
--- NOTE | 2022-06-05 17:53 | PM.IMHP ---
H&P: HPI History of Present Illness Date/Time: 06/05/22 17:53 Chief Complaint: induction of labor Narrative: Cady is a 22yo G1 at 38.2 for IOL cHTN. also complicated by MO. On nifedipine. GBS pos. Review of Systems Review of Systems: All systems reviewed & are unremarkable except as noted in HPI and below PMFSH Past Medical History Medical History (Updated 06/05/22 @ 17:54 by Opal House MD) Hypertension Family History Family History (Updated 05/22/22 @ 14:40 by Gilles Collins RN) Mother Heart disease Lymphedema Hypertension Diabetes mellitus Father Diabetes mellitus Hypertension Sibling Asthma Social History Social History (Updated 03/21/22 @ 23:21 by Eileen Ferris MD) Smoking status: Never smoker Substance use: never Spiritual care concerns: No Meds Home Medications and Allergies Home Medications Medication Instructions Recorded Confirmed Type vit 168-iron 27 mg-folic 800 cap PO 1XD 12/03/21 06/05/22 History acid 800 mcg-omega3 235 mg capsule (One-A-Day -1) aspirin 81 mg tablet 81 mg PO DAILY 03/21/22 06/05/22 History nifedipine 30 mg tablet,extended 30 mg PO DAILY 05/22/22 06/05/22 History release 24 hr (Procardia XL) Allergies Allergy/AdvReac Type Severity Reaction Status Date / Time No Known Allergies Allergy Mild Verified 05/22/22 14:36 Vital Signs Vital Signs - 24 hr 06/05/22 05:09 06/05/22 05:32 06/05/22 05:47 Temperature 98.4 F Pulse Rate 101 H 87 96 Respiratory Rate 17 Blood Pressure 151/80 H 132/58 L 127/63 Oxygen Delivery 06/05/22 06:02 06/05/22 06:16 06/05/22 06:31 Temperature Pulse Rate 92 91 90 Respiratory Rate Blood Pressure 114/53 L 113/72 121/48 L Oxygen Delivery 06/05/22 07:02 06/05/22 07:17 06/05/22 07:32 Temperature Pulse Rate 89 79 77 Respiratory Rate Blood Pressure 128/68 140/82 123/76 Oxygen Delivery 06/05/22 07:47 06/05/22 09:56 06/05/22 15:02 Temperature 97.9 F Pulse Rate 78 73 84 Respiratory Rate Blood Pressure 122/50 L 108/48 L 117/54 L Oxygen Delivery 06/05/22 15:16 06/05/22 15:32 06/05/22 15:46 Temperature Pulse Rate 81 84 93 Respiratory Rate Blood Pressure 128/77 116/61 115/73 Oxygen Delivery 06/05/22 16:02 06/05/22 16:32 06/05/22 05:11 Temperature Pulse Rate 82 82 Respiratory Rate Blood Pressure 113/51 L 114/59 L Oxygen Delivery Room Air Exam Const: General: no acute distress Resp: Effort & Inspection: normal respiratory effort Auscultation: clear to auscultation bilaterally Cardio: Rate: regular rate Rhythm: regular rhythm GI: GI Palp: Yes Soft to palpation Extrem: General: normal to inspection H&P: Results Labs Labs: Short CBC 06/05/22 Range/Units 05:17 WBC 9.6 (4.5-10.0) K/mm3 Hgb 12.4 (12.0-15.0) g/dL Hct 37.5 (37.0-47.0) % Plt Count 208 (150-375) k/mm3 [facility] 06/05/22 05:19 Sodium 134 L Potassium 3.8 Chloride 103 Carbon Dioxide 22 BUN 10 Creatinine 0.60 L Glucose 109 Calcium 9.5 Liver Function 06/05/22 Range/Units 05:19 Total Bilirubin 0.4 (0.2-1.3) mg/dL AST 20 (14-36) U/L ALT 11 (6-35) U/L Alkaline Phosphatase 149 H (38-126) U/L Albumin 3.7 (3.5-5.1) g/dL Assessment and Plan Assessment and plan (1) Chronic hypertension affecting : Code(s): O10.919 - Unspecified pre-existing hypertension complicating , unspecified trimester Status: Acute (2) Morbid obesity: Code(s): E66.01 - Morbid (severe) obesity due to excess calories Status: Acute Plan s/p cervidil AROM clear 1.5/60/-3/soft pitocin now GBS pos- ampicillin BPs stable
[2022-06-05] MEDS: OXYTOCIN 30 UNITS/NS 500 ML 30 UNITS/500 ML BAG 6 UNITS IV CONT (18:50)
[2022-06-05] MEDS: NIFEdipine 30 MG TAB.ER.24 PO (18:53)
--- NOTE | 2022-06-05 21:26 | WPDANESEPPF ---
Anes - Initial Pre Proc Eval Procedure: Labor Epidural Date/Time: 06/05/22 21:26 Surgeon: Opal House MD Pre Op Diagnosis: IOL Pre Op Diagnosis: IOL Patient Data Age: 22 Gender: F Height: 1.63 m Weight: 141 kg Last Vital Signs Temp 36.5 C 06/05/22 18:54 Pulse 68 06/05/22 21:16 Resp 17 06/05/22 05:09 BP 137/80 06/05/22 21:16 O2 Del Method Room Air 06/05/22 05:11 Allergies Allergy/AdvReac Type Severity Reaction Status Date / Time No Known Allergies Allergy Mild Verified 05/22/22 14:36 Home Medications Medication Instructions Recorded Confirmed Type vit 168-iron 27 mg-folic 800 cap PO 1XD 12/03/21 06/05/22 History acid 800 mcg-omega3 235 mg capsule (One-A-Day -1) aspirin 81 mg tablet 81 mg PO DAILY 03/21/22 06/05/22 History nifedipine 30 mg tablet,extended 30 mg PO DAILY 05/22/22 06/05/22 History release 24 hr (Procardia XL) Laboratory Tests 06/05/22 06/05/22 06/05/22 05:17 05:17 05:17 WBC 9.6 K/mm3 K/mm3 (4.5-10.0) RBC 4.13 M/mm3 L M/mm3 (4.2-5.4) Hgb 12.4 g/dL g/dL (12.0-15.0) Hct 37.5 % % (37.0-47.0) MCV 90.8 fl fl (80-100) MCH 30.0 pg pg (26-34) MCHC 33.1 g/dl g/dl (32-36) RDW 13.8 % % (11.5-14.5) Plt Count 208 k/mm3 k/mm3 (150-375) MPV 11.9 fl H fl (7.4-10.4) Immature Gran % (Auto) 0.4 % % (0-0.5) Neut % (Auto) 69.8 % % (45.5-73.1) Lymph % (Auto) 23.9 % % (18.3-44.2) [place] % (Auto) 5.2 % % (2.6-8.5) Eos % (Auto) 0.4 % % (0-4.4) Baso % (Auto) 0.3 % % (0.2-1.2) Lymph # (Auto) 2.30 K/mm3 K/mm3 (0.9-3.2) [place] # (Auto) 0.5 K/mm3 K/mm3 (0.1-0.6) Eos # (Auto) 0.0 K/mm3 K/mm3 (0-0.3) Baso # (Auto) 0.0 K/mm3 K/mm3 (0.0-0.1) Abs Immat Gran (auto) 0.04 K/mm3 H K/mm3 (0.00-0.031) Absolute Neuts (auto) 6.7 K/mm3 K/mm3 (1.3-6.7) Absolute Nucleated RBC 0.0 K/mm3 K/mm3 (0.0-0.012) Nucleated RBC % 0.0 % % (0.0-0.2) Sodium Potassium Chloride Carbon Dioxide Anion Gap BUN Creatinine Estim Creat Clear Calc Estimated GFR Glucose Calcium Total Bilirubin AST ALT Alkaline Phosphatase Total Protein Albumin RPR Non-reactive (NonReactive) Blood Type AB Positive Antibody Screen Negative 06/05/22 05:19 WBC RBC Hgb Hct MCV MCH MCHC RDW Plt Count MPV Immature Gran % (Auto) Neut % (Auto) Lymph % (Auto) [place] % (Auto) Eos % (Auto) Baso % (Auto) Lymph # (Auto) [place] # (Auto) Eos # (Auto) Baso # (Auto) Abs Immat Gran (auto) Absolute Neuts (auto) Absolute Nucleated RBC Nucleated RBC % Sodium 134 mmol/L L mmol/L (137-145) Potassium 3.8 mmol/L mmol/L (3.4-5.0) Chloride 103 mmol/L mmol/L (98-107) Carbon Dioxide 22 mmol/L mmol/L (22-30) Anion Gap 9 mmol/L mmol/L (8-16) BUN 10 mg/dL mg/dL (7-17) Creatinine 0.60 mg/dL L mg/dL (0.7-1.0) Estim Creat Clear Calc 176 ml/min ml/min Estimated GFR > 60 (59 - ) Glucose 109 mg/dL mg/dL (65-110) Calcium 9.5 mg/dL mg/dL (8.4-10.2) Total Bilirubin 0.4 mg/dL mg/dL (0.2-1.3) AST 20 U/L U/L (14-36) ALT 11 U/L U/L (6-35) Alkaline Phosphatase 149 U/L H U/L (38-126) Total Protein 7.0 g/dL g/dL (6.3-8.2) Albumin 3.7 g/dL g/dL (3.5-5.1) RPR Blood Type Antibody Screen Patient hx anesthesia problems: none Family hx anesthesia problems: none Resu
--- NOTE | 2022-06-05 23:57 | WPDANESEPN ---
Anes - Epidural Procedure Note Date/Time: 06/05/22 23:57 Consent: I have discussed with the patient/family/POA, the placement of an epidural catheter and the use of epidural narcotic/local anesthetic for labor analgesia and/or postoperative pain management, including associated potential risks, benefits, complications and side effects. I have discussed alternative methods of labor analgesia and/or postoperative pain management. The patient/family/POA, understand(s) and wish(es) to proceed with epidural narcotic/local anesthetic for labor analgesia and/or postoperative pain management. Time-Out: A pre-procedural Time-Out was completed immediately before starting the procedure and confirmed: Patient Identification, Site, Procedure, Patient Position and the Availability of Requisite Equipment. Epidural Insertion Note Patient position: sitting Skin prep: chlorhexidine and sterile drape Needle: 18g Tuohy-Schliff Catheter: 20g Unstyleted Technique: Loss of resistance. Level of insertion: L3/4 Catheter skin nellie (cm): 7 Length in epidural space (cm): 12 Skin anesthesia: lidocaine 1% Test dose: 1.5% Lidocaine with 1:[id number] Epi, negative for subarachnoid Inj and negative for intravascular Inj Time of test dose: 23:41 Observations: tolerated well Complications: none
--- NOTE | 2022-06-05 23:59 | WPDANESEPPF ---
Anes - Initial Pre Proc Eval Date/Time: 06/05/22 23:31 Surgeon: Opal House MD Pre Op Diagnosis: IOL Patient Data Age: 22 Gender: F Height: 1.63 m Weight: 141 kg Last Vital Signs Temp 36.5 C 06/05/22 18:54 Pulse 88 06/05/22 23:51 Resp 17 06/05/22 05:09 BP 127/69 06/05/22 23:51 Pulse Ox 100 06/05/22 23:58 O2 Del Method Room Air 06/05/22 05:11 Allergies Allergy/AdvReac Type Severity Reaction Status Date / Time No Known Allergies Allergy Mild Verified 05/22/22 14:36 Home Medications Medication Instructions Recorded Confirmed Type vit 168-iron 27 mg-folic 800 cap PO 1XD 12/03/21 06/05/22 History acid 800 mcg-omega3 235 mg capsule (One-A-Day -1) aspirin 81 mg tablet 81 mg PO DAILY 03/21/22 06/05/22 History nifedipine 30 mg tablet,extended 30 mg PO DAILY 05/22/22 06/05/22 History release 24 hr (Procardia XL) Laboratory Tests 06/05/22 06/05/22 06/05/22 05:17 05:17 05:17 WBC 9.6 K/mm3 K/mm3 (4.5-10.0) RBC 4.13 M/mm3 L M/mm3 (4.2-5.4) Hgb 12.4 g/dL g/dL (12.0-15.0) Hct 37.5 % % (37.0-47.0) MCV 90.8 fl fl (80-100) MCH 30.0 pg pg (26-34) MCHC 33.1 g/dl g/dl (32-36) RDW 13.8 % % (11.5-14.5) Plt Count 208 k/mm3 k/mm3 (150-375) MPV 11.9 fl H fl (7.4-10.4) Immature Gran % (Auto) 0.4 % % (0-0.5) Neut % (Auto) 69.8 % % (45.5-73.1) Lymph % (Auto) 23.9 % % (18.3-44.2) [place] % (Auto) 5.2 % % (2.6-8.5) Eos % (Auto) 0.4 % % (0-4.4) Baso % (Auto) 0.3 % % (0.2-1.2) Lymph # (Auto) 2.30 K/mm3 K/mm3 (0.9-3.2) [place] # (Auto) 0.5 K/mm3 K/mm3 (0.1-0.6) Eos # (Auto) 0.0 K/mm3 K/mm3 (0-0.3) Baso # (Auto) 0.0 K/mm3 K/mm3 (0.0-0.1) Abs Immat Gran (auto) 0.04 K/mm3 H K/mm3 (0.00-0.031) Absolute Neuts (auto) 6.7 K/mm3 K/mm3 (1.3-6.7) Absolute Nucleated RBC 0.0 K/mm3 K/mm3 (0.0-0.012) Nucleated RBC % 0.0 % % (0.0-0.2) Sodium Potassium Chloride Carbon Dioxide Anion Gap BUN Creatinine Estim Creat Clear Calc Estimated GFR Glucose Calcium Total Bilirubin AST ALT Alkaline Phosphatase Total Protein Albumin RPR Non-reactive (NonReactive) Blood Type AB Positive Antibody Screen Negative 06/05/22 05:19 WBC RBC Hgb Hct MCV MCH MCHC RDW Plt Count MPV Immature Gran % (Auto) Neut % (Auto) Lymph % (Auto) [place] % (Auto) Eos % (Auto) Baso % (Auto) Lymph # (Auto) [place] # (Auto) Eos # (Auto) Baso # (Auto) Abs Immat Gran (auto) Absolute Neuts (auto) Absolute Nucleated RBC Nucleated RBC % Sodium 134 mmol/L L mmol/L (137-145) Potassium 3.8 mmol/L mmol/L (3.4-5.0) Chloride 103 mmol/L mmol/L (98-107) Carbon Dioxide 22 mmol/L mmol/L (22-30) Anion Gap 9 mmol/L mmol/L (8-16) BUN 10 mg/dL mg/dL (7-17) Creatinine 0.60 mg/dL L mg/dL (0.7-1.0) Estim Creat Clear Calc 176 ml/min ml/min Estimated GFR > 60 (59 - ) Glucose 109 mg/dL mg/dL (65-110) Calcium 9.5 mg/dL mg/dL (8.4-10.2) Total Bilirubin 0.4 mg/dL mg/dL (0.2-1.3) AST 20 U/L U/L (14-36) ALT 11 U/L U/L (6-35) Alkaline Phosphatase 149 U/L H U/L (38-126) Total Protein 7.0 g/dL g/dL (6.3-8.2) Albumin 3.7 g/dL g/dL (3.5-5.1) RPR Blood Type Antibody Screen Patient hx anesthesia problems: none Family hx anesthesia problems: none Results Review: All pre-
[2022-06-06] VITALS (284 sets, daily range): BP systolic 59–156; BP diastolic 35–141; PULSE 65–181; RESP 16; TEMP 36.9–37.3; O2SAT 92–100
[2022-06-06] MEDS: AMPICILLIN 1 GM/NS 50 ML 1 GM/50 ML BAG IVPB ×4 (02:44→16:06)
[2022-06-06] MEDS: ONDANSETRON INJ 4 MG/2 ML VIAL IV PUSH ×2 (08:41→20:34)
[2022-06-06] MEDS: OXYTOCIN 30 UNITS/NS 500 ML 30 UNITS/500 ML BAG 999 UNITS IV CONT (18:31)
[2022-06-06] MEDS: OXYTOCIN 30 UNITS/NS 500 ML 30 UNITS/500 ML BAG 125 UNITS IV CONT (19:07)
--- NOTE | 2022-06-06 19:29 | PM.OBPRVD ---
OB - Delivery Note Procedure Delivery date: 06/06/22 Procedure: Events: Chronic Hypertension Induction method: AROM, Per Pitocin Protocol and Per Cervidil Protocol Delivery monitor: External FHT and Internal Uterine Route of delivery: Laceration Description: Vaginal Delivery repair: vicryl Specimen: No Quantitative Blood Loss (ml): 725 (from right vaginal vault laceration that started prior to delivery) Anesthesia type: Epidural Disposition: Floor Narrative: With adequate expulsive efforts by the mother, the baby's head was delivered OA. The baby's anterior shoulder was delivered under the pubic symphysis without difficulty. The posterior shoulder and the rest of the baby delivered without difficulty. The was placed on the mothers chest and suctioned and stimulated. The cord was clamped and cut after 30 seconds. Mother and baby both stable. Baby Date of : 06/06/22 Time of : 18:20 Weeks of gestation at delivery: 38 gender: Male Weight (pounds): 8 Weight (ounces): 3 presentation: vertex Placenta delivery description: Spontaneous Cord Vessel Description: 3 Vessels, Nuchal Cord and Clamped/Cut score one minute: 8 score five minutes: 9
[2022-06-06] MEDS: ACETAMINOPHEN 325 MG TABLET 650 MG PO (21:16)
[2022-06-06] MEDS: BENZOCAINE 20% AER SPR (*SP) 56 GM CAN 1 SPRAY TOPICAL (21:17)
[2022-06-06] MEDS: WITCH HAZEL 40 PADS 1 PAD TOPICAL (21:17)
--- NOTE | 2022-06-06 21:42 | OBPPTRN ---
Patient transferred to post room # 279 via wheelchair. Support person present. Oriented to unit, room, information board, rooming in, admission packet and security measures. Patient verbalizes understanding.
[2022-06-07 03:35] VITALS: BP 135/75; PULSE 87; RESP 15; TEMP 36.6; O2SAT 100
[2022-06-07] MEDS: IBUPROFEN 600 MG TABLET PO ×2 (03:38→17:30)
[2022-06-07 05:25] LABS: Hematocrit 26.8 % (37.0-47.0); Hemoglobin 8.9 g/dL (12.0-15.0)
[2022-06-07 07:55] VITALS: BP 131/76; PULSE 76; RESP 16; TEMP 36.2; O2SAT 100
--- NOTE | 2022-06-07 08:14 | P.PNOB_ITS ---
OB - PN: Subj Subjective Date/time seen: 06/07/22 08:14 Patient comments: no complaints and pain well controlled baby status: doing well [place] feeding status: breast and bottle feeding OB - PN: Obj Data Labs CBC & Chem 7: 06/07/22 03:47 06/05/22 05:19 Labs: Laboratory Results - last 24 hr 06/07/22 03:47 Hgb 8.9 L D Hct 26.8 L OB - PN A/P Plan day: 1 Plan: routine care Time Spent With Patient Time: Total time spent is greater than 50% in coordination of care (as documented) at patient's floor/unit and/or counseling patient: Time with patient: less than 15 minutes Exam Narrative: NAD abdomen soft, nontender, fundus firm below the umbilicus Extremities nontender, 1+ edema
--- NOTE | 2022-06-07 08:47 | WPDANLDPN2 ---
Anes-Prog Note L&D Date/Time: 06/07/22 08:47 Comfortable throughout: labor and delivery Neuraxial method: epidural Epidural/Spinal procedure site: clean & non-tender Neuro status: Neuro function grossly intact. Cardiovascular status: normal Respiratory status: normal Airway patency: baseline Mental status: baseline Post-Op hydration status: normal Vital Signs: Last Vital Signs Temp 36.6 C 06/07/22 03:35 Pulse 87 06/07/22 03:35 Resp 15 06/07/22 03:35 BP 135/75 06/07/22 03:35 Pulse Ox 100 06/07/22 03:35 O2 Del Method Room Air 06/06/22 21:55 Pain score (VAS): 1 I/O: Intake & Output 06/06/22 06/07/22 06/07/22 23:59 07:59 15:59 Output Total 800 Balance -800 Patient feedback: Patient satisfied with anesthetic care.
[2022-06-07] MEDS: DOCUSATE SODIUM 100 MG CAPSULE PO ×2 (09:18→17:30)
[2022-06-07] MEDS: MULTIVIT/MIN/PREN/FOL AC/IRON TABLET 1 TAB PO (09:18)
[2022-06-07] MEDS: ACETAMINOPHEN 325 MG TABLET 650 MG PO (09:18)
[2022-06-07] MEDS: POLYSACCHARIDE IRON COMPLEX 150 MG CAPSULE PO ×2 (09:18→17:29)
[2022-06-07 11:30] VITALS: BP 146/69; PULSE 92; RESP 20; TEMP 36.2; O2SAT 99
--- NOTE | 2022-06-07 13:58 | PC.NURSE ---
[id number] Introductions were made, then consulted with patient to assess needs related to . Mother led the conversation with her?plans to feed?her infant and the?experience so far. Mother stated to the primary RN that she wanted to breastfeed but mother is prepared to bottle feed her right now. Resources provided for inpatient and outpatient services using a resource guide and mom/baby guide. Mother voiced understanding of information and requested for assistance to practice . Mother works well with her infant with encouragement and education. Encouraged understanding of the benefits of skin to skin (unwrapping and placing vertically on her chest), responsive feeding and how to watch for early feeding signs, frequency of feeding on demand about every 8-12 times in 24 hours (every 2-3 hours), milk production, duration of feeding, signs of adequate intake/output and how to record on the feeding sheet. Reviewed positioning and ear, shoulder, hip alignment, supporting the breast, asymmetrical latch (off-center), and leading with the chin with a big open side gape. Infant latched optimally to the right breast in football position. Education given to mother of how to visualize suck/swallow ratios and listen for drinking at the breast. Infant was able to maintain latch without discomfort to mother. Nipple care reviewed with optimal latch and good positioning. Reinforced the reduction of breastmilk with bottle feeding without hand expression or pumping. Reviewed good handwashing when or touching the breast/nipples during hand expression to prevent infection. Resources used to facilitate learning were used with the tool and mom/baby guide. Mother voiced understanding of responsive feedings, stimulating with skin to skin, hand expressed colostrum, massage touch, stimulating while to actively engage for effective feeding, talking to to encourage if it has been 2 -3 hours since the start of the last , and to call if infant does not latch or there is discomfort with . Mother encouraged to call for assistance offering the other breast when was finished effective on the right breast. Reported to the primary RN.
[2022-06-07 15:45] VITALS: BP 120/76; PULSE 83; RESP 16; TEMP 36.9; O2SAT 100
[2022-06-07] MEDS: NIFEdipine 30 MG TAB.ER.24 PO (17:30)
[2022-06-07 20:00] VITALS: BP 138/65; PULSE 92; RESP 18; TEMP 36.4; O2SAT 100
[2022-06-07 23:30] VITALS: BP 128/71
[2022-06-08 04:45] VITALS: BP 159/84
[2022-06-08 07:25] VITALS: BP 145/76; PULSE 88; RESP 16; TEMP 36.6; O2SAT 100
--- NOTE | 2022-06-08 07:43 | PM.OBPNVD ---
OB - PN: Subj Subjective Date/time seen: 06/08/22 07:43 Patient comments: no complaints, pain well controlled and tolerating diet OB - PN: Obj Data Labs CBC & Chem 7: 06/07/22 03:47 06/05/22 05:19 OB - PN A/P Plan day: 2 Plan: routine care and discharge home Time Spent With Patient Time: Total time spent is greater than 50% in coordination of care (as documented) at patient's floor/unit and/or counseling patient: Exam Const: General: comfortable and no acute distress Resp: Effort & Inspection: normal respiratory effort Auscultation: no rales, no rhonchi and no wheezes Cardio: Rate: regular rate Heart sounds: no click, no murmurs and no rubs GI: GI Palp: Yes Soft to palpation and No Tenderness to palpation present (GI) Auscultation: normal bowel sounds Extrem: General: normal to inspection, no pedal edema and no calf tenderness
--- NOTE | 2022-06-08 07:44 | PM.OBDSVD ---
DS: Admitting Diagnosis Discharge Date 06/08/22 Admitting Diagnosis Term gestation OB - DS: Summary OB Procedures : None OB Procedures Intrapartum: Spontaneous Vag Delivery OB Procedures: : None Time Spent with Patient Time attestation: Total time spent providing and/or coordinating discharge services: Discharge Plan Discharge Discharging Clinician: Rafat Pack Patient Disposition: Home, Self-Care Activity: pelvic rest Diet: regular Patient Instructions: Antibiotic Form Stand Alone Forms: General Discharge Information Follow-up/Referrals: Rafat Pack MD [Physician] - Discharge Medications: No Action aspirin 81 mg Tablet 81 mg PO DAILY nifedipine [Procardia XL] 30 mg Tablet Extended Release 24hr 30 mg PO DAILY One-A-Day -1 27 mg iron- 800 mcg-235 mg Capsule 800 cap PO 1XD Date of admission: 06/05/22 04:42 Primary Care Provider: Ileana,Ana Rosa Mckee Admitting Provider: Opal House Attending physician on admission: Opal House Condition: Stable
[2022-06-08] MEDS: DOCUSATE SODIUM 100 MG CAPSULE PO (08:45)
[2022-06-08] MEDS: MULTIVIT/MIN/PREN/FOL AC/IRON TABLET 1 TAB PO (08:45)
[2022-06-08] MEDS: POLYSACCHARIDE IRON COMPLEX 150 MG CAPSULE PO (08:45)
--- NOTE | 2022-06-08 08:45 | PC.NURSE ---
Patient viewed the discharge video Mother & Baby Care, The First Two Weeks . Patient was given the opportunity and encouraged to ask questions. Patient verbalized understanding of information shared and has been given the mother/baby guide for home reference.
[2022-06-08] MEDS: ACETAMINOPHEN 325 MG TABLET 650 MG PO (08:46)
[2022-06-09 08:15] VITALS: BP 147/79; PULSE 96; RESP 20; TEMP 37; O2SAT 100
== END 2022-06-08 11:03 | disposition home or self-care (01) | DRG 560 ==
LOC: ANHOB2 06-08 09:16 → ANHLDR 06-09 11:18
PROVIDERS: Admitting Provider Obstetrics & Gynecology; PCP Physician Assistant; Visit Provider Obstetrics & Gynecology
DX: O10.92 Unspecified pre-existing hypertension complicating childbirth (principal); O99.214 Obesity complicating childbirth; O70.0 First degree perineal laceration during delivery; E66.01 Morbid (severe) obesity due to excess calories; O99.824 Streptococcus B carrier state complicating childbirth; O76 Abnormality in fetal heart rate and rhythm complicating labor and delivery; Z3A.38 38 weeks gestation of pregnancy; Z37.0 Single live birth
CPT/HCPCS: 36415; 80053; 84112; 85014; 85018; 85025; 86592; 86850; 86900; 86901; A9270; J0290; J2405; J2590; J2795; J7120

== ENCOUNTER 2023-10-09 09:23 | Observation (INO) | payer OTHER, SELFPAY ==
[2023-10-09] VITALS (21 sets, daily range): BP systolic 122–134; BP diastolic 62–71; PULSE 80–95; O2SAT 97–100; BMI 53.6
--- NOTE | 2023-10-09 10:10 | OBADM ---
This patient, Gwendolyn Desouza, admitted to the OB room 115 for observation. Patient/family oriented to hospital policies and general routines including ID bracelet, bed and alarms, visiting hours, pain management, procedures, bathroom and other care routines, personal items, smoking policy, room service/diet, and visiting hours. Patient/Family are encouraged to report perceived risks to care and to ask questions if they do not understand what they are told or what they should do.
[2023-10-09 10:14] LABS: Appearance Urine Clear (Clear); Bilirubin Urine Negative (Negative); Blood Urine Negative (Negative); Color Urine Yellow (Yellow); Glucose Urine UA Negative (Negative); Ketones Urine Negative (Negative); Leukocyte Esterase Ur Negative LEU/UL (Negative); Nitrate Urine Negative (Negative); Protein Urine Negative (Negative); Specific Grav Ur 1.008 (1.001-1.035)
[2023-10-09 10:31] LABS: Add Urine Microscopic? NO
--- NOTE | 2023-10-10 11:03 | PM.OBTRLD ---
OB - Triage/Final Diagnosis Visit Information Comments/Additional reasons for admission: I have assessed the risk for this patient, Gwendolyn Desouza, and determined that she would benefit from observation care. Evaluation Laboratory results: Laboratory Tests 10/09/23 10:01 Urine Color Yellow Urine Appearance Clear Urine pH 7.0 Ur Specific [place] 1.008 Urine Protein Negative Urine Glucose (UA) Negative Urine Ketones Negative Ur Blood (Man) Negative Urine Nitrate Negative Urine Bilirubin Negative Urine Urobilinogen 1.0 Leukocyte Esterase Rfl Negative Final Diagnosis (1) Low back pain: Code(s): M54.50 - Low back pain, unspecified Status: Acute
== END 2023-10-09 11:34 | disposition home or self-care (01) ==
LOC: ANHOBPP 11:28 → ANHLDR 11:36
PROVIDERS: Admitting Provider Obstetrics & Gynecology; PCP Physician Assistant; Visit Provider Obstetrics & Gynecology
DX: O99.891 Other specified diseases and conditions complicating pregnancy (principal); M54.50 Low back pain, unspecified; Z3A.29 29 weeks gestation of pregnancy
CPT/HCPCS: 81003; G0378; G0379

== ENCOUNTER 2023-11-18 05:47 | Observation (INO) | payer OTHER, SELFPAY ==
[2023-11-18 06:13] VITALS: BP 136/75; PULSE 106
[2023-11-18 06:29] LABS: Appearance Urine Cloudy (Clear); Bacteria Urine 4+ /hpf; Bilirubin Urine Negative (Negative); Blood Urine Negative (Negative); Color Urine Yellow (Yellow); Glucose Urine UA Negative (Negative); Ketones Urine Negative (Negative); Leukocyte Esterase Ur Trace LEU/UL (Negative); Nitrate Urine Positive (Negative); Non Pathogenic Casts 0-2; Protein Urine Negative (Negative); RBC Urine 0-2 /hpf (0-2); Specific Grav Ur 1.023 (1.001-1.035); Squamous Epithelial Cell Urine Few /hpf (Few); WBC Urine 21-50 /hpf
[2023-11-18 06:31] VITALS: BP 127/73; PULSE 87; BMI 53.4
--- NOTE | 2023-11-18 06:31 | OBADM ---
This patient, Gwendolyn Desouza, admitted to the OB room OB Post 117 for observation. Patient/family oriented to hospital policies and general routines including ID bracelet, bed and alarms, visiting hours, pain management, procedures, bathroom and other care routines, personal items, smoking policy, room service/diet, and visiting hours. Patient/Family are encouraged to report perceived risks to care and to ask questions if they do not understand what they are told or what they should do.
[2023-11-18 06:35] LABS: Add Urine Microscopic? YES
--- NOTE | 2023-12-13 21:22 | PM.OBTRLD ---
OB - Triage/Final Diagnosis Visit Information Comments/Additional reasons for admission: I have assessed the risk for this patient, Gwednolyn Desouza, and determined that she would benefit from observation care. Evaluation Laboratory results: Laboratory Tests 11/18/23 06:14 Urine Color Yellow Urine Appearance Cloudy H Urine pH 6.0 Ur Specific [place] 1.023 Urine Protein Negative Urine Glucose (UA) Negative Urine Ketones Negative Ur Blood (Man) Negative Urine Nitrate Positive H Urine Bilirubin Negative Urine Urobilinogen 1.0 Leukocyte Esterase Rfl Trace H Urine RBC 0-2 Urine WBC 21-50 H Ur Squamous Epith Cells Few Urine Bacteria 4+ H Urine Casts 0-2 Final Diagnosis (1) Abdominal pain: Code(s): R10.9 - Unspecified abdominal pain Status: Acute
== END 2023-11-18 06:48 | disposition home or self-care (01) ==
PROVIDERS: Admitting Provider Obstetrics & Gynecology; PCP Physician Assistant; Visit Provider Obstetrics & Gynecology
DX: O26.893 Other specified pregnancy related conditions, third trimester (principal); R10.9 Unspecified abdominal pain; Z3A.35 35 weeks gestation of pregnancy
CPT/HCPCS: 81001; 87086; G0378; G0379

== ENCOUNTER 2023-12-04 00:01 | Inpatient (IN) | payer OTHER, SELFPAY ==
[2023-12-04] VITALS (129 sets, daily range): BP systolic 74–151; BP diastolic 41–103; PULSE 42–127; TEMP 35.7–37; O2SAT 83–100; BMI 53.9
--- NOTE | 2023-12-04 00:32 | LDADM ---
This patient, Gwendolyn Desouza, was admitted to Labor/Delivery/Recovery 106 on 12/04/23 at 00:01. Plans for labor, pain management and were discussed with patient. Patient/family oriented to hospital policies and general routines including ID bracelet, bed and alarms, visiting hours, pain management, procedures, bathroom and other care routines, personal items, smoking policy, room service/diet and guest tray routines, infant security routines, and visiting hours. Patient/Family are encouraged to report perceived risks to care and to ask questions if they do not understand what they are told or what they should do. See OBI[facility] for further documentation.
[2023-12-04] MEDS: miSOPROStol 25 MCG TABLET 50 MCG BY MOUTH ×2 (02:12→07:30)
[2023-12-04] MEDS: FAMOTIDINE 20 MG/2 ML VIAL IV PUSH (02:13)
[2023-12-04 02:14] LABS: Basophils Percent Auto 0.3 % (0.2-1.2); Eosinophils Absolute Auto 0.1 K/mm3 (0-0.3); Eosinophils Percent Auto 0.5 % (0-4.4); Hematocrit 36.2 % (37.0-47.0); Hemoglobin 11.3 g/dL (12.0-15.0); Immature Granulocyte Absolute 0.05 K/mm3 (0.00-0.031); Immature Granulocyte Percent A 0.5 % (0-0.5); Lymphocytes Absolute Auto 2.46 K/mm3 (0.9-3.2); Lymphocytes Percent Auto 24.1 % (18.3-44.2); Mean Corpuscular HGB Conc 31.2 g/dl (32-36); Mean Corpuscular Hemoglobin 28.1 pg (26-34); Mean Platelet Volume 11.7 fl (7.4-10.4); Monocytes Absolute Auto 0.5 K/mm3 (0.1-0.6); Neutrophils Absolute Auto 7.1 K/mm3 (1.3-6.7); Neutrophils Percent Auto 69.6 % (45.5-73.1); Platelet Count Result 215 k/mm3 (150-375); Red Blood Count 4.02 M/mm3 (4.2-5.4); Red Cell Distribution Width 14.3 % (11.5-14.5); White Blood Count 10.2 K/mm3 (4.5-10.0)
[2023-12-04 02:24] LABS: Alanine Aminotransferase 14 U/L (6-35); Albumin Level 3.9 g/dL (3.5-5.1); Alkaline Phosphatase 181 U/L (38-126); Anion Gap 7 mmol/L (8-16); Aspartate Amino Transferase 25 U/L (14-36); Bilirubin,Total 0.7 mg/dL (0.2-1.3); Blood Urea Nitrogen 12 mg/dL (7-17); Calcium 9.6 mg/dL (8.4-10.2); Carbon Dioxide 20 mmol/L (22-30); Chloride 106 mmol/L (98-107); Estimated Glomerular Filt Rate > 60; Glucose 99 mg/dL (65-110); Sodium 133 mmol/L (137-145)
--- NOTE | 2023-12-04 06:40 | WPDANESEPP ---
Anes - Eval Pre Procedure Procedure: labor epidural Date/Time: 12/04/23 06:40 Surgeon: magda Preop Diagnosis: pain during labor Pre Op Diagnosis: IOL Patient Data Age: 23 Gender: F Height: Weight: Last Vital Signs Temp 36.3 C L 12/04/23 06:30 Pulse 95 12/04/23 06:30 BP 150/101 H 12/04/23 06:30 Allergies Allergy/AdvReac Type Severity Reaction Status Date / Time No Known Allergies Allergy Mild Verified 05/22/22 14:36 Home Medications Medication Instructions Recorded Confirmed Type vit 168-iron 27 mg-folic 800 cap PO 1XD 12/03/21 11/18/23 History acid 800 mcg-omega3 235 mg capsule (One-A-Day -1) aspirin 81 mg chewable tablet 81 mg PO DAILY 10/09/23 11/18/23 History metformin 500 mg tablet 500 mg PO BID 10/09/23 11/18/23 History nifedipine 60 mg tablet,extended 60 mg PO DAILY 10/09/23 11/18/23 History release 24 hr nitrofurantoin 100 mg PO Q12H 7 days #14 caps 11/18/23 Rx monohydrate/macrocrystals 100 mg capsule (Macrobid) Laboratory Tests 12/04/23 00:51 WBC 10.2 H K/mm3 (4.5-10.0) RBC 4.02 L M/mm3 (4.2-5.4) Hgb 11.3 L g/dL (12.0-15.0) Hct 36.2 L % (37.0-47.0) MCV 90.0 fl (80-100) MCH 28.1 pg (26-34) MCHC 31.2 L g/dl (32-36) RDW 14.3 % (11.5-14.5) Plt Count 215 k/mm3 (150-375) MPV 11.7 H fl (7.4-10.4) Immature Gran % (Auto) 0.5 % (0-0.5) Neut % (Auto) 69.6 % (45.5-73.1) Lymph % (Auto) 24.1 % (18.3-44.2) [place] % (Auto) 5.0 % (2.6-8.5) Eos % (Auto) 0.5 % (0-4.4) Baso % (Auto) 0.3 % (0.2-1.2) Lymph # (Auto) 2.46 K/mm3 (0.9-3.2) [place] # (Auto) 0.5 K/mm3 (0.1-0.6) Eos # (Auto) 0.1 K/mm3 (0-0.3) Baso # (Auto) 0.0 K/mm3 (0.0-0.1) Abs Immat Gran (auto) 0.05 H K/mm3 (0.00-0.031) Absolute Neuts (auto) 7.1 H K/mm3 (1.3-6.7) Absolute Nucleated RBC 0.0 K/mm3 (0.0-0.012) Nucleated RBC % 0.0 % (0.0-0.2) Sodium 133 L mmol/L (137-145) Potassium 4.0 mmol/L (3.4-5.0) Chloride 106 mmol/L (98-107) Carbon Dioxide 20 L mmol/L (22-30) Anion Gap 7 L mmol/L (8-16) BUN 12 mg/dL (7-17) Creatinine 0.50 L mg/dL (0.7-1.0) Estim Creat Clear Calc Not Reportable Estimated GFR > 60 (59 - ) Glucose 99 mg/dL (65-110) Calcium 9.6 mg/dL (8.4-10.2) Total Bilirubin 0.7 mg/dL (0.2-1.3) AST 25 U/L (14-36) ALT 14 U/L (6-35) Alkaline Phosphatase 181 H U/L (38-126) Total Protein 8.0 g/dL (6.3-8.2) Albumin 3.9 g/dL (3.5-5.1) RPR Pending Blood Type AB Positive Antibody Screen Negative Patient hx anesthesia problems: none Family hx anesthesia problems: none Results Review: All pre-operative results and documents have been reviewed as part of the pre-operative evaluation. [facility] Past Medical History Medical History (Updated 12/04/23 @ 06:40 by Gabriella Self CRNA) Anxiety Depression DM (diabetes mellitus) Hypertension IUP (intrauterine ), incidental Family History Family History Mother Heart disease Lymphedema Hypertension Diabetes mellitus Father Diabetes mellitus Hypertension Sibling Asthma Social History Social History Smoking status: Never smoker Second hand tobacco smoke exposure: No Substance use: never Do You Feel Safe in your Home?: Yes Lack of Transportation: No Lack of Food: Never True Current Housing: I Have Housing Concerned About Future Housing: No Difficulty Paying Gas/Electric Bills: No Difficulty Paying for Meds: No Currently Unemployed: No Education: High School Diploma/GED Difficulty w/ Childcare or Family Care: No Spiritual care concerns: No Exam Day of Procedure 12/04/23 06:40
[2023-12-04] MEDS: NIFEdipine 30 MG TAB.ER.24 60 MG PO (07:30)
[2023-12-04] MEDS: LACTATED RINGERS 1,000 ML 125 ML IV CONT ×3 (12:02→19:35)
[2023-12-04] MEDS: OXYTOCIN 30 UNITS/NS 500 ML 30 UNITS/500 ML BAG IV CONT (12:03)
[2023-12-04 14:38] LABS: Rapid Plasma Reagin Non-Reactive (NonReactive)
[2023-12-04 21:07] LABS: Glucose Point of Care 97 mg/dl (65-105)
[2023-12-05] VITALS (152 sets, daily range): BP systolic 84–240; BP diastolic 30–218; PULSE 65–266; RESP 16–30; TEMP 36.2–37.5; O2SAT 78–100
[2023-12-05] MEDS: SODIUM CHLORIDE 0.9% IV 300 ML 600 ML I-UTERINE (00:48)
[2023-12-05] MEDS: LACTATED RINGERS 1,000 ML 125 ML IV CONT ×2 (01:22→06:00)
[2023-12-05] MEDS: diphenhydrAMINE HCl INJ 50 MG/ML VIAL 25 MG IV PUSH ×2 (01:26→10:32)
[2023-12-05] MEDS: ONDANSETRON INJ 4 MG/2 ML VIAL IV PUSH (01:30)
--- NOTE | 2023-12-05 04:31 | PM.IMHP ---
H&P: HPI History of Present Illness Date/Time: 12/04/23 07:31 Chief Complaint: chronic HTN, medical induction of labor Narrative: Patient is a 23 year old at 37 weeks who presents for medical induction of labor indicated for chronic HTN on procardia XL 60 daily. BPs have been well controlled throughout . No s/s of preeclampsia. testing has been reactive. otherwise complicated by obesity, BMI 57, and anxiety, no meds. She denies headaches, vision changes, chest pain, dyspnea, RUQ pain or epigastric pain. Review of Systems Review of Systems: All systems reviewed & are unremarkable except as noted in HPI and below PMFSH Past Medical History Medical History Anxiety Depression DM (diabetes mellitus) Hypertension IUP (intrauterine ), incidental Family History Family History Mother Heart disease Lymphedema Hypertension Diabetes mellitus Father Diabetes mellitus Hypertension Sibling Asthma Social History Social History Smoking status: Never smoker Second hand tobacco smoke exposure: No Substance use: never Do You Feel Safe in your Home?: Yes Lack of Transportation: No Lack of Food: Never True Current Housing: I Have Housing Concerned About Future Housing: No Difficulty Paying Gas/Electric Bills: No Difficulty Paying for Meds: No Currently Unemployed: No Education: High School Diploma/GED Difficulty w/ Childcare or Family Care: No Spiritual care concerns: No Meds Home Medications and Allergies Home Medications Medication Instructions Recorded Confirmed Type vit 168-iron 27 mg-folic 800 cap PO 1XD 12/03/21 11/18/23 History acid 800 mcg-omega3 235 mg capsule (One-A-Day -1) aspirin 81 mg chewable tablet 81 mg PO DAILY 10/09/23 11/18/23 History metformin 500 mg tablet 500 mg PO BID 10/09/23 11/18/23 History nifedipine 60 mg tablet,extended 60 mg PO DAILY 10/09/23 11/18/23 History release 24 hr nitrofurantoin 100 mg PO Q12H 7 days #14 caps 11/18/23 Rx monohydrate/macrocrystals 100 mg capsule (Macrobid) Allergies Allergy/AdvReac Type Severity Reaction Status Date / Time No Known Allergies Allergy Mild Verified 12/04/23 21:05 Vital Signs Vital Signs - 24 hr 12/04/23 06:25 12/04/23 06:30 12/04/23 06:49 Temperature 97.3 F L Pulse Rate 80 95 78 Blood Pressure 140/79 150/101 H 134/73 Pulse Oximetry Oxygen Delivery 12/04/23 07:46 12/04/23 08:01 12/04/23 08:16 Temperature Pulse Rate 82 83 74 Blood Pressure 136/72 132/68 138/73 Pulse Oximetry Oxygen Delivery 12/04/23 08:30 12/04/23 08:31 12/04/23 09:01 Temperature 97.8 F Pulse Rate 86 78 Blood Pressure 131/71 140/75 Pulse Oximetry Oxygen Delivery 12/04/23 09:31 12/04/23 10:01 12/04/23 10:31 Temperature Pulse Rate 83 78 77 Blood Pressure 127/64 133/71 132/69 Pulse Oximetry Oxygen Delivery 12/04/23 10:30 12/04/23 11:31 12/04/23 12:01 Temperature 97.4 F L Pulse Rate 83 89 Blood Pressure 139/79 139/84 Pulse Oximetry Oxygen Delivery 12/04/23 13:01 12/04/23 12:30 12/04/23 13:31 Temperature 98.4 F Pulse Rate 92 83 Blood Pressure 134/70 120/80 Pulse Oximetry Oxygen Delivery 12/04/23 14:01 12/04/23 15:13 12/04/23 15:31 Temperature Pulse Rate 88 85 76 Blood Pressure 127/63 138/69 133/59 L Pulse Oximetry Oxygen Delivery 12/04/23 14:30 12/04/23 16:01 12/04/23 16:30 Temperature 97.2 F L 97.6 F Pulse Rate 102 H Blood Pressure 143/60 H Pulse Oximetry Oxygen Delivery 12/04/23 16:31 12/04/23 17:01 12/04/23 17:31 Temperature Pulse Rate 90 83 89 Blood Pressure 141/65 H 137/68 134/73 Pulse Oximetry Oxygen Delivery 12/04/23 18:01 12/04/23 18:09
--- NOTE | 2023-12-05 04:38 | PM.OBPNLAB ---
Pain Control Date/time seen: 12/04/23 0142 Comments: Late entry. At bedside for AROM, SVE 3.5/50/-3; large amount of clear fluid returned; IUPC placed without difficulty Assessment and Plan Comments: Continue pitocin per protocol; IUPC in place
--- NOTE | 2023-12-05 04:39 | PM.OBPNLAB ---
Pain Control Date/time seen: 12/05/23 04:39 Pain control: epidural (not well controlled) Comments: Patient requested provider at bedside; feeling discouraged due to no labor progress since midnight and increasing pain despite replacement of epidural and bolus. Reports vaginal burning and increased pain with contractions. Patient requesting c section. FHR Category II due to recurrent late and variable decelerations. R/b/a of primary c section discussed with patient including risk of infection, bleeding, and injury to surrounding organs. Patient voices understanding and elects to proceed with primary c section. Patient declines pre op SVE to evaluate for further cervical change. Assessment and Plan Comments: anesthesia aware, will prep for primary c section 2/2 failure to progress, NRFHT. 3g ancef and 500mg azithromycin ordered.
--- NOTE | 2023-12-05 04:44 | WPDHPUPDATE1 ---
History and Physical Update Update Date/Time: 12/05/23 04:44 History and Physical has been reviewed, including an updated exam of the patient. There are NO changes in the patient's condition. Risks, benefits, and alternatives have been discussed and questions answered. Patient agrees to proceed with procedure.
--- NOTE | 2023-12-05 05:18 | P.PNAN_ITS ---
Anes - Eval Final PreProcedure Day of Procedure 12/05/23 05:18 Patient weight: super morbidly obese Heart: regular rate and rhythm Lungs: clear to auscultation and normal air movement Airway: Mallampati scale class II Neurological: alert and oriented Last oral intake: >/= 8 hours ASA classification: III Emergent: no Anesthetic plan: proceed Anesthesia type and monitoring: regional epidural and standard monitoring Results Review: All pre-operative results and documents have been reviewed as part of the pre- operative evaluation. Informed Consent: The patient's anesthetic plan and its attendant risks and benefits were discussed with the patient/family/POA. Questions were solicited and answers provided to the satisfaction of the patient/family/POA.
[2023-12-05] MEDS: OXYTOCIN 30 UNITS/NS 500 ML 30 UNITS/500 ML BAG 125 UNITS IV CONT (08:00)
--- NOTE | 2023-12-05 09:11 | PC.NURSE ---
On 12/05/23, the student, Connie Ivey, provided care and completed [facility] documentation on this patient. I have reviewed the student's documentation and agree with the findings.
--- NOTE | 2023-12-05 10:30 | PC.NURSE ---
Had to bottlefeed baby due to low blood sugar. Took a breastpump in to mother and encouraged her to pump. She would like to eat at this time and will call out when ready to pump so I can show her how to use the pump.
[2023-12-05] MEDS: LIDOCAINE 5% PATCH 1 PATCH TRANSDERM (10:32)
--- NOTE | 2023-12-05 11:04 | W.PM.OBCSD ---
OB - Delivery Note Procedure Delivery date: 12/05/23 Pre-op diagnosis: Arrest of Dilation, Chronic Hypertension and Decelerations Post-op Diagnosis: Same Induction method: Per Misoprostol Protocol Delivery augmentation: Rupture of Membranes and Pitocin Delivery monitor: Internal FHT and Internal Uterine Procedure Performed: Primary (low transverse) Surgeon: Oscar Vuong MD Anesthesia type: Epidural Description of Procedure/Findings: The patient was taken to the operating room where she was placed in the dorsal supine position with a leftward tilt. The electronic monitor was placed and heart rate was found to be reassuring. She was prepped and draped in the normal sterile fashion, and anesthesia was checked to be adequate. A Pfannenstiel skin incision was made with the scalpel and carried through to the underlying layer of fascia with the scalpel. The fascia was incised in the midline and the incision extended laterally with the Escobedo scissors. The superior aspect of the fascial incision was then grasped with Corinne clamps, elevated, and the underlying rectus muscles dissected off bluntly and with Escobedo scissors. Attention was then turned to the inferior aspect of the fascial incision, which in similar fashion was grasped, elevated, and the rectus muscles dissected off.? The rectus muscles were then in the midline, and the peritoneum entered bluntly. The peritoneal incision was extended superiorly and inferiorly with good visualization of the bladder. With the bladder blade providing retraction and visualization, the lower uterine segment was incised in a transverse fashion with the scalpel. The uterine incision was then extended laterally. The bladder blade was removed and the 's head was elevated and delivered atraumatically. Nuchal cord was reduced without difficulty. The remainder of the infant was then delivered without difficulty, and the 's nose and mouth were suctioned with the bulb suction. The umbilical cord was doubly clamped and cut. The was then handed off to the waiting nursing staff. Specimens then obtained as listed below. The placenta was then removed manually and the uterus was exteriorized and cleared of all clots and debris. A right sided uterine extension was noted. The uterine incision was repaired with 0-Biosyn in a running, unlocked fashion. A second layer and figure of eight stitches of the same suture imbricated and obtained excellent hemostasis. The posterior cul-de-sac was manually cleared of all clots and debris. The uterus was returned to the abdomen. The gutters were then manually cleared of all clots and debris.? The uterine incision was visualized to be hemostatic. Hemaderm powder was placed over the uterine incision. The fascia was reapproximated with 0-Polysorb in a running fashion. The subcutaneous tissues were irrigated with warmed normal saline, and hemostasis was assured. The subcutaneous tissue was greater than 2 cm and closed in a running fashion with 2-0 plain gut suture.? The skin was closed with 4-0 Monocryl in a subcuticular stitch. Fundal pressure was applied to express remaining intrauterine clots and debris. The patient tolerated the procedure well. Sponge, lap, and needle counts were correct times three per nursing. The patient was taken to the recovery room in stable condition. Specimen: Yes Estimated Blood Loss: 1,010 Pathology: Yes Complications: No immediate complications Condition: Stable Disposition: Floor [place] Baby Weeks of gestation at delivery: 37 Infant gender: Male
[2023-12-05] MEDS: ACETAMINOPHEN 325 MG TABLET 650 MG PO ×3 (11:46→23:41)
[2023-12-05] MEDS: KETOROLAC 15 MG/ML VIAL (*BKC) IV PUSH ×3 (11:46→23:40)
[2023-12-05] MEDS: SIMETHICONE 80 MG TAB.CHEW PO ×2 (11:47→17:35)
[2023-12-05] MEDS: DEXTROSE 5%/0.45% SOD CHL 1,000 ML 125 ML IV CONT (11:55)
--- NOTE | 2023-12-05 14:45 | WPDANLDPN2 ---
Anes-Prog Note L&D Date/Time: 12/05/23 14:45 Comfortable throughout: section Neuraxial method: epidural Epidural/Spinal procedure site: clean & non-tender Neuro status: Neuro function grossly intact. Cardiovascular status: normal Respiratory status: normal Airway patency: baseline Mental status: baseline Post-Op hydration status: normal Vital Signs: Last Vital Signs Temp 97.1 F L 12/05/23 13:11 Pulse 79 12/05/23 13:11 Resp 16 12/05/23 13:11 BP 125/62 12/05/23 13:11 Pulse Ox 98 12/05/23 13:11 O2 Del Method Room Air 12/05/23 11:45 Pain score (VAS): 0/10 I/O: Intake & Output 12/04/23 12/05/23 12/05/23 23:59 07:59 15:59 Intake Total 1999 1000 1280 Output Total 1010 300 Balance 1999 - 980 Post-procedural complaints: none Patient feedback: Patient satisfied with anesthetic care.
--- NOTE | 2023-12-05 14:45 | WPDANLDNPN2 ---
Anes-Prog Note L&D-Neuraxial Date/Time: 12/05/23 14:45 Neuraxial medications: epidural PF morphine Opiod-related complaints: none Patient feedback: Patient satisfied with post-operative pain management.
--- NOTE | 2023-12-05 16:23 | PC.NURSE ---
0950 - Infant is in the nursery getting gel for a low blood sugar. [id number] Introductions were made, then consulted with patient to assess needs related to . Discussed with mother her?plans to feed?her infant, the?experience so far, and mother is bottle feeding per Dr's order, however; states she wants to breastfeed but will breastfeed once she gets home. Suggestion was made to initiate pumping for comfort without pain, nipple stretching/stimulation for adequate milk production every 3 hours (8 times in 24 hours) 1-2 times at night. Mother is encouraged to record the pumping schedule on the feeding sheet as father of baby is sleeping. Name was written on the communication board and mother was encouraged to call when she is ready to start pumping encouraging earlier and frequently for a robust milk supply. Mother voiced understanding as she recovers from a primary section. [id number] Mother called out for assistance with pumping. Breast pump provided due to ineffective and mother's desire to breastfeed at home and/or pump and feed. Instructions given on cleaning, care, usage, that there should be no pain, pumping schedule for milk production, collection, and storage of human milk. Patient was assessed for correct placement, flange size, to pump for comfort and nipple stretching/stimulation for adequate milk production every 3 hours (8 times in 24 hours) 1-2 times at night. Pumping session written on the feeding sheet. Mother voiced understanding of the education shared along with mom/baby guide and the pump measurement, flange fit handout for additional resource information. Reported to the Primary RN.
[2023-12-05] MEDS: DOCUSATE SODIUM 100 MG CAPSULE PO (17:34)
[2023-12-06 04:50] VITALS: BP 123/58; PULSE 77; RESP 16; TEMP 36.6
[2023-12-06 05:25] LABS: Basophils Percent Auto 0.2 % (0.2-1.2); Eosinophils Absolute Auto 0.1 K/mm3 (0-0.3); Eosinophils Percent Auto 1.1 % (0-4.4); Hematocrit 27.2 % (37.0-47.0); Hemoglobin 8.5 g/dL (12.0-15.0); Immature Granulocyte Absolute 0.05 K/mm3 (0.00-0.031); Immature Granulocyte Percent A 0.6 % (0-0.5); Lymphocytes Absolute Auto 2.08 K/mm3 (0.9-3.2); Lymphocytes Percent Auto 23.9 % (18.3-44.2); Mean Corpuscular HGB Conc 31.3 g/dl (32-36); Mean Corpuscular Hemoglobin 28.9 pg (26-34); Mean Corpuscular Volume 92.5 fl (80-100); Mean Platelet Volume 11.3 fl (7.4-10.4); Monocytes Absolute Auto 0.4 K/mm3 (0.1-0.6); Monocytes Percent Auto 4.8 % (2.6-8.5); Neutrophils Absolute Auto 6.1 K/mm3 (1.3-6.7); Neutrophils Percent Auto 69.4 % (45.5-73.1); Platelet Count Result 159 k/mm3 (150-375); Red Blood Count 2.94 M/mm3 (4.2-5.4); Red Cell Distribution Width 14.6 % (11.5-14.5); White Blood Count 8.7 K/mm3 (4.5-10.0)
[2023-12-06] MEDS: IBUPROFEN 600 MG TABLET (05:45)
[2023-12-06] MEDS: ACETAMINOPHEN 325 MG TABLET 650 MG PO ×3 (05:45→18:32)
[2023-12-06 07:35] VITALS: BP 123/64; PULSE 66; RESP 18; TEMP 36.4; O2SAT 100
[2023-12-06] MEDS: POLYSACCHARIDE IRON COMPLEX 150 MG CAPSULE PO ×2 (07:56→17:09)
[2023-12-06] MEDS: DOCUSATE SODIUM 100 MG CAPSULE PO ×2 (07:57→17:09)
[2023-12-06] MEDS: SIMETHICONE 80 MG TAB.CHEW PO ×3 (07:57→17:09)
[2023-12-06] MEDS: metFORMIN HCL 500 MG TABLET PO ×2 (07:57→17:09)
[2023-12-06] MEDS: HYDROcodone/acetaminophen (*CRX) 5-325 MG TABLET 1 TAB PO (07:58)
[2023-12-06] MEDS: MULTIVIT/MIN/PREN/FOL AC/IRON TABLET 1 TAB PO (07:58)
[2023-12-06 12:20] VITALS: BP 136/75; PULSE 83; RESP 16; TEMP 36.6; O2SAT 100
[2023-12-06] MEDS: NIFEdipine 30 MG TAB.ER.24 60 MG PO (12:25)
[2023-12-06] MEDS: IBUPROFEN 600 MG TABLET PO ×2 (12:26→18:33)
--- NOTE | 2023-12-06 12:50 | PM.OBPNVD ---
OB - PN: Subj Subjective Date/time seen: 12/06/23 12:50 Patient comments: no complaints, pain well controlled, tolerating diet and flatus present OB - PN: Obj Data Labs 12/06/23 04:53 12/04/23 00:51 Labs: Laboratory Results - last 24 hr 12/06/23 04:53 WBC 8.7 RBC 2.94 L Hgb 8.5 L Hct 27.2 L MCV 92.5 MCH 28.9 MCHC 31.3 L RDW 14.6 H Plt Count 159 MPV 11.3 H Immature Gran % (Auto) 0.6 H Neut % (Auto) 69.4 Lymph % (Auto) 23.9 [place] % (Auto) 4.8 Eos % (Auto) 1.1 Baso % (Auto) 0.2 Lymph # (Auto) 2.08 [place] # (Auto) 0.4 Eos # (Auto) 0.1 Baso # (Auto) 0.0 Abs Immat Gran (auto) 0.05 H Absolute Neuts (auto) 6.1 Absolute Nucleated RBC 0.0 Nucleated RBC % 0.0 OB - PN A/P Plan day: 1 Comments: Post Op LTCS - no problems, routine recovery Time Spent With Patient Time: Total time spent is greater than 50% in coordination of care (as documented) at patient's floor/unit and/or counseling patient: Exam Const: General: cooperative, healthy appearing, comfortable and no acute distress Resp: Auscultation: no crackles, no rales, no rhonchi and no wheezes Cardio: Rhythm: regular rhythm Heart sounds: no click and no murmurs GI: Inspection: non-distended Auscultation: normal bowel sounds Extrem: General: normal to inspection, no pedal edema and no calf tenderness
[2023-12-06 21:00] VITALS: BP 131/78; PULSE 85; RESP 18; TEMP 36.8
[2023-12-07] MEDS: ACETAMINOPHEN 325 MG TABLET 650 MG PO ×3 (00:10→13:27)
[2023-12-07] MEDS: IBUPROFEN 600 MG TABLET PO ×3 (00:11→13:27)
--- NOTE | 2023-12-07 07:00 | PC.NURSE ---
Pt has not showered since delivery. Encouraged pt to shower this am, discussed incision care in the shower and after, verbalized understanding
[2023-12-07 08:20] VITALS: BP 143/75; PULSE 85; RESP 16; TEMP 36.6; O2SAT 100
[2023-12-07] MEDS: MULTIVIT/MIN/PREN/FOL AC/IRON TABLET 1 TAB PO (09:27)
[2023-12-07] MEDS: NIFEdipine 30 MG TAB.ER.24 60 MG PO (09:27)
[2023-12-07] MEDS: DOCUSATE SODIUM 100 MG CAPSULE PO (09:27)
[2023-12-07] MEDS: metFORMIN HCL 500 MG TABLET PO (09:27)
[2023-12-07] MEDS: SIMETHICONE 80 MG TAB.CHEW PO ×2 (09:27→13:27)
[2023-12-07] MEDS: POLYSACCHARIDE IRON COMPLEX 150 MG CAPSULE PO (09:27)
--- NOTE | 2023-12-07 11:11 | P.PNOB_ITS ---
OB - PN: Subj Subjective Date/time seen: 12/07/23 11:11 Interval history: POD#2 doing well, pain well controlled some soreness at incision site bleeding minimal ambulating without difficulty voiding, passing flatus desires discharge home today OB - PN: Obj Data Labs 12/06/23 04:53 12/04/23 00:51 OB - PN A/P Assessment and Plan (1) Chronic hypertension affecting : Code(s): O10.919 - Unspecified pre-existing hypertension complicating , un specified trimester Status: Acute Assessment and Plan: continue procardia xl 60 daily (2) S/P : Code(s): Z98.891 - History of uterine scar from previous surgery Status: Acute Plan day: 2 Plan: discharge home Time Spent With Patient Time: Total time spent is greater than 50% in coordination of care (as documented) at patient's floor/unit and/or counseling patient: Review of Systems Review of Systems: All systems reviewed & are unremarkable except as noted in HPI and below Exam Const: General: cooperative, healthy appearing, comfortable and no acute distress Resp: Effort & Inspection: normal respiratory effort Cardio: Rhythm: regular rhythm GI: Inspection: non-distended GI Palp: Yes Soft to palpation and No Tenderness to palpation present (GI) Other: incision c/d/i, some dependent edema and darker skin surrounding incision. left sided contact dermatitis likely 2/2 drape adhesive during surgery Extrem: General: normal to inspection, no pedal edema and no calf tenderness
--- NOTE | 2023-12-07 11:17 | P.DS_ITS ---
DS: Admitting Diagnosis Discharge Date 12/07/23 Admitting Diagnosis [facility] for chronic HTN DS: Discharge Diagnosis Discharge Diagnosis (1) S/P : Code(s): Z98.891 - History of uterine scar from previous surgery Status: Acute (2) Morbid obesity: Code(s): E66.01 - Morbid (severe) obesity due to excess calories Status: Acute (3) Chronic hypertension affecting : Code(s): O10.919 - Unspecified pre-existing hypertension complicating , unspecified trimester Status: Acute OB - DS: Summary OB Procedures : None OB Procedures Intrapartum: low cervical, transverse OB Procedures: : None Peripartum Data Procedures: Procedures Operation Date: 12/05/23 04:30 Actual Procedure Side Surgeon p Section Not Applicable Oscar Vuong MD Time Spent with Patient Time attestation: Total time spent providing and/or coordinating discharge services: Exam Const: General: cooperative, healthy appearing, comfortable and no acute dist ress Resp: Effort & Inspection: normal respiratory effort Cardio: Rhythm: regular rhythm GI: Inspection: non-distended GI Palp: Yes Soft to palpation and No Tenderness to palpation present (GI) Other: incision c/d/i, some dependent edema and darker skin surrounding incision. left sided contact dermatitis likely 2/2 drape adhesive during surgery Extrem: General: normal to inspection, no pedal edema and no calf tenderness DS: Data Data Completed and Pending Completed studies during hospitalization: Pending at discharge 12/05/23 06:51 Surgical [PTH] Routine Discharge Plan Discharge Attending physician on discharge: Oscar Vuong Discharging Clinician: Oscar Vuong Patient Disposition: Home, Self-Care Activity: may shower, may drive after 2 weeks and pelvic rest Diet: as tolerated Patient Instructions: Antibiotic Form Stand Alone Forms: General Discharge Information Follow-up/Referrals: Oscar Vuong MD [Physician] - 1 Week Discharge Medications: Continued metformin 500 mg tablet 500 mg PO BID nifedipine 60 mg tablet extended release 24hr 60 mg PO DAILY One-A-Day -1 27 mg iron- 800 mcg-235 mg Capsule 800 cap PO 1XD Discontinued aspirin 81 mg Tablet,Chewable 81 mg PO DAILY nitrofurantoin monohyd/m-cryst [Macrobid] 100 mg Capsule 100 mg PO Q12H 7 Days Qty: 14 0RF Rx Instructions: must administer with a meal/food Date of admission: 12/04/23 00:01 Primary Care Provider: Ileana,Ana Rosa Mckee Admitting Provider: Oscar Vuong Attending physician on admission: Oscar Vuong Condition: Stable
--- NOTE | 2023-12-07 13:01 | PC.NURSE ---
[id number] Purposefully rounded to assess for needs. Mother shared she has been independently latching with no pain. Her history with feeding her first was unsuccessful with no latching, pumping for 2 months until she stopped for personal preference. We reviewed milk production with consistently stimulating 8-12 times in 24 hours (1-2 times at night) to encourage a good milk supply. Mother is mostly bottle feeding with formula. Mother states she is confident to continue effectively feed her infant at home, when to call for assistance, denies any additional assistance or education at this time. Reinforced understanding of milk production, transition of milk, signs of adequate intake, transition of stool, prevention/relief of engorgement, plugged ducts, mastitis, responsive watching for feeding cues, the different methods of stimulating infant to breastfeed 1-3 hours after the start of the last feeding, community resources (pt has [employer] resources in [place]), medication information reviewed per [facility] and when to call a provider using the resource of the mom and baby guide. Mother voiced understanding of the education shared. Reported to the Primary RN.
[2023-12-07] MEDS: MEASLES,MUMPS,RUBELLA VACCINE 0.5 ML VIAL SUB-Q (15:02)
[2023-12-08 10:27] VITALS: BP 139/72; PULSE 85; RESP 18; TEMP 37.1; O2SAT 100
== END 2023-12-07 15:57 | disposition home or self-care (01) | DRG 540 ==
LOC: ANHLDR 00:04 → ANHOB2 12-05 08:31
PROVIDERS: Admitting Provider Obstetrics & Gynecology; PCP Physician Assistant; Visit Provider Obstetrics & Gynecology
PROC: 10D00Z1 Extraction of Products of Conception, Low, Open Approach (ICD-10-PCS; CPT 59514; principal; 2023-12-05 04:30)
DX: O10.92 Unspecified pre-existing hypertension complicating childbirth (principal); Z37.0 Single live birth; Z3A.37 37 weeks gestation of pregnancy; O69.81X0 Labor and delivery complicated by cord around neck, without compression, not applicable or unspecified; O24.12 Pre-existing type 2 diabetes mellitus, in childbirth; O99.214 Obesity complicating childbirth; E66.01 Morbid (severe) obesity due to excess calories; O36.8330 Maternal care for abnormalities of the fetal heart rate or rhythm, third trimester, not applicable or unspecified; O62.2 Other uterine inertia
CPT/HCPCS: 36415; 80053; 82948; 85025; 86592; 86850; 86900; 86901; 88307; 90710; A9270; J1200; J1885; J2274; J2371; J2405; J2590; J2795; J7030; J7120

== ENCOUNTER 2024-03-02 11:23 | Emergency (ER) | payer OTHER, SELFPAY ==
[2024-03-02 11:34] VITALS: BP 150/83; PULSE 100; RESP 16; TEMP 37; O2SAT 100
[2024-03-02 12:22] VITALS: BP 117/63; PULSE 87; RESP 16; O2SAT 100
[2024-03-02 12:29] LABS: Basophils Percent Auto 0.5 % (0.2-1.2); Eosinophils Absolute Auto 0.1 K/mm3 (0-0.3); Eosinophils Percent Auto 0.7 % (0-4.4); Hematocrit 36.2 % (37.0-47.0); Hemoglobin 11.3 g/dL (12.0-15.0); Immature Granulocyte Absolute 0.03 K/mm3 (0.00-0.031); Immature Granulocyte Percent A 0.4 % (0-0.5); Lymphocytes Absolute Auto 2.07 K/mm3 (0.9-3.2); Lymphocytes Percent Auto 24.3 % (18.3-44.2); Mean Corpuscular HGB Conc 31.2 g/dl (32-36); Mean Corpuscular Hemoglobin 25.3 pg (26-34); Mean Platelet Volume 10.4 fl (7.4-10.4); Monocytes Absolute Auto 0.3 K/mm3 (0.1-0.6); Monocytes Percent Auto 3.9 % (2.6-8.5); Neutrophils Percent Auto 70.2 % (45.5-73.1); Platelet Count Result 269 k/mm3 (150-375); Red Blood Count 4.47 M/mm3 (4.2-5.4); Red Cell Distribution Width 15.1 % (11.5-14.5); White Blood Count 8.5 K/mm3 (4.5-10.0)
[2024-03-02 12:40] LABS: Anion Gap 7 mmol/L (4-12); Blood Urea Nitrogen 14 mg/dL (7-17); Carbon Dioxide 24 mmol/L (22-30); Chloride 108 mmol/L (98-107); Estimated CRCL calculation 178 ml/min; Estimated Glomerular Filt Rate > 60; Glucose 88 mg/dL (65-110); Potassium 3.6 mmol/L (3.4-5.0); Sodium 139 mmol/L (137-145)
[2024-03-02 12:57] LABS: Beta HCG Quantitative < 2.39 mIU/ML
--- NOTE | 2024-03-02 13:15 | ED.FEMALEGU ---
HPI - Female Genitourinary General Chief complaint: Vaginal Bleeding Stated complaint: vaginal bleedng, dizzy Time Seen by Provider: 03/02/24 11:43 Source: patient Mode of arrival: ambulatory Limitations: no limitations History of Present Illness HPI Narrative: 23-year-old otherwise healthy status post 3 months ago here with complaints of having lower abdominal pain and vaginal bleeding which started yesterday. Patient states that she has history of anemia and she is worried that she could be anemic she also stated that she felt lightheaded and dizzy earlier this morning. Patient states that she soaked 1 large tampon in yesterday and 1 today. She denies any fever or chills or nausea or vomiting. MD elicited complaint: vaginal bleeding Onset (ago): day(s) (1) Severity: moderate Consistency: constant Vaginal discharge: none Vaginal bleeding: moderate Relieving factors: none Associated symptoms: denies other symptoms Treatment prior to arrival: none Related Data Home Medications Medication Instructions Recorded Confirmed vit 168-iron 27 mg-folic 800 cap PO 1XD 12/03/21 12/05/23 acid 800 mcg-omega3 235 mg capsule (One-A-Day -1) metformin 500 mg tablet 500 mg PO BID 10/09/23 12/05/23 nifedipine 60 mg tablet,extended 60 mg PO DAILY 10/09/23 12/05/23 release 24 hr Allergies Allergy/AdvReac Type Severity Reaction Status Date / Time No Known Allergies Allergy Mild Verified 03/02/24 11:34 Review of Systems Review of Systems: All systems reviewed & are unremarkable except as noted in HPI and below Constitutional: Constitutional: Reports no additional constitutional complaints Eyes: Eyes: Reports no additional eye complaints ENT: Reports system reviewed and no additional complaints, except as documented Cardiovascular: Cardiovascular: Reports no additional cardiovascular complaints Respiratory: Respiratory: Reports no additional respiratory complaints Gastrointestinal: Gastrointestinal: Reports no additional gastrointestinal complaints Genitourinary: Genitourinary: Reports as per HPI Musculoskeletal: Musculoskeletal: Reports no additional musculoskeletal complaints Integumentary/Breasts: Skin/Breast: Reports system reviewed and no additional complaints, except as docu PMFSH Past Medical History Medical History Anxiety Depression DM (diabetes mellitus) Hypertension IUP (intrauterine ), incidental Family History Family History Mother Heart disease Lymphedema Hypertension Diabetes mellitus Father Diabetes mellitus Hypertension Sibling Asthma Social History Social History Smoking status: Never smoker Second hand tobacco smoke exposure: No Substance use: never Do You Feel Safe in your Home?: Yes Lack of Transportation: No Lack of Food: Never True Current Housing: I Have Housing Concerned About Future Housing: No Difficulty Paying Gas/Electric Bills: No Difficulty Paying for Meds: No Currently Unemployed: No Education: High School Diploma/GED Difficulty w/ Childcare or Family Care: No Spiritual care concerns: No Exam Narrative: GENERAL: Well-appearing, well-nourished, and in no acute distress. HEAD: Normocephalic, atraumatic. EYES: PERRLA and EOMI. ENT: Nares clear, no rhinorrhea or epistaxis. Mucous membranes moist. NECK: Supple. CHEST: Clear to auscultation. No respiratory distress. HEART: Regular rate and rhythm. No murmur heard. Normal peripheral pulses. ABDOMEN: Soft, nontender, nondistended, normal active bowel sounds. EXTREMITIES: Normal range of motion. No edema. SKIN: Warm, dry, no rash. NEURO: No focal deficits. Alert and oriented x3. PSYCH: Normal mood and affect. Course Course Emergency Course: Notified patient about her work, advised
[2024-03-02 13:29] VITALS: BP 135/73; PULSE 76; RESP 16; TEMP 36.7; O2SAT 100
== END 2024-03-02 13:29 | disposition home or self-care (01) ==
PROVIDERS: Emergency Provider Family Medicine; PCP Physician Assistant
DX: N93.9 Abnormal uterine and vaginal bleeding, unspecified (principal); F41.9 Anxiety disorder, unspecified; F32.A Depression, unspecified; E11.9 Type 2 diabetes mellitus without complications; I10 Essential (primary) hypertension; Z79.84 Long term (current) use of oral hypoglycemic drugs
CPT/HCPCS: 36415; 80048; 84702; 85025; 85610; 99283

== ENCOUNTER 2024-11-20 06:49 | Emergency (ER) | payer OTHER, SELFPAY ==
--- OUTSIDE RECORDS SUMMARY | 2024-11-20 06:51 | XMS_ITS | Referral Summary ---
Author Organization [facility] [address] [place] [id number] Care Team Providers Care Delivery Director Name Role Phone Ana Rosa Tejeda Primary Care Provider [phone] Allergies No known active allergies Medications topiramate (TOPAMAX) 25 mg tablet Take 1 tablet (25 mg total) by mouth 2 (two) times a day 1 tab BID x 1 week then take 2 tabs BID 120 tablet 11 07/15/2020 Active SUMAtriptan (IMITREX) 100 mg tabletIndicatio ns:Migraine Take 1 tablet (100 mg total) by mouth once as needed for migraine (headache) for up to 1 dose May repeat one time after 2 hours if needed. 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 Gender Identity Not on file Sexual Orientation Not on file Last Filed Vital Signs Vital Sign Reading Time Taken Comments Blood Pressure 110/60 07/15/2020 11:28 AM CDT Pulse 76 07/15/2020 11:28 AM CDT Temperature - - Respiratory Rate 12 07/15/2020 11:2 8 AM CDT Oxygen Saturation 99% 11/06/2014 4:30 AM DIGITAL 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
--- OUTSIDE RECORDS SUMMARY | 2024-11-20 06:51 | XMS_ITS | Clinical Summary ---
Author Organization [facility] [address] [place] [id number] Care Team Providers Care Furnishings Conservator Name Role Phone Ana Rosa Tejeda Primary Care Provider [phone] Allergies No known active allergies Medications topiramate [...] of distal end of radius 03/04/20 12 Medical History Medical History Date Comments Migraine Anxiety Depression Family History Medical History Relation Name Comments Diabetes Father Hypertension Mother Stroke Mother Relation Name Status Comments Father Alive Mother Alive Social History Tobacco Use Types Packs/Day Years Used Date Smoking Tobacco: Never Smokeless Tobacco: Never Comments Unknown Sex and Gender Information Value Date Recorded Sex Assigned at Not on file 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 [employer] Gender Identity Not on file Sexual Orientation Not on file Obstetrics History Last Filed Vital Signs Vital Sign Reading Time Taken Comments Blood Pressure 110/60 07/15/2020 11:28 AM CDT Pulse 76 07/15/2020 11:28 AM CDT Temperature - - Respiratory Rate 12 07/15/2020 11:2 8 AM CDT Oxygen Saturation 99% 11/06/2014 4:30 AM M[employer]DER [employer] Inhaled Oxygen Concentration - - Weight 134.8 kg (297 lb 1.1 oz) 020 11:28 AM CDT Height 162.6 cm (5' 4 ) 07/15/2020 11:2 8 AM CDT Body Mass Index 50.99 07/15/2020 11:28 AM CDT Plan of Treatment Health Maintenance Due Date Last Done Comments Cervical Cancer Screening 2000 Depression Screening 2000 Hepatitis C Screening 2000 Varicella Vaccines (1 of 2 - 13+ 2-dose series) 08/23/2015 Regular Well Visit/Exam 18-64 2018 DTaP/Tdap/Td Vaccine (7 - Td or Tdap) 05/30/2021 05/30/2011, 01/18/2005, 09/09/2001, Additional history exists Influenza Vaccine (#1) 2024 8, 07/24/2016, 07/26/2015, Additional history exists Pneumococcal vaccine <65 Completed 001, 2000, 2000, Additional history exists HPV Vaccines Completed 12/08/2011, 07/15, 05/30/2011 Insurance [facility] Care Teams Furnishings Conservator Relationship Specialty Start Date End Date Ana Rosa Tejeda PA [address] [place] [id number] PCP - General Physician Casting And Curing Operator 06/18/20
--- OUTSIDE RECORDS SUMMARY | 2024-11-20 06:52 | XMS_ITS | CONTINUITY OF CARE DOCUMENT ---
Author Name faizan gloria Address Unknown Organization [facility] Office Address [address] [place] [address] Phone [phone] Care Team Providers Care Monkey Breeder Name Role Phone Ethan CHILDERS, Adarsh Unavailable [phone] Adarsh Long MD Unavailable INSURANCE PROVIDERS Payer name Policy type / Coverage type Sophia red libertarian [place] (2) Medicaid [id number]
--- OUTSIDE RECORDS SUMMARY | 2024-11-20 06:52 | XMS_ITS | Data Portability ---
Author Organization [facility] Address [address] [place] [address] Care Team Providers Care Manager Retirement Name Role Phone AMY HART Primary Care Provider LEMUEL LOUIE Primary Care Provider Assessment No assessment recorded. Plan of Treatment Reminders Order Date Submit Date Provider Last Modified By Organization Details Last Modified Time Details Appointments None recorded. Lab test, urine 2023 024 [address], [address], [place], [address], 4 10:32:49 Referral None recorded. Procedures None recorded. Surgeries None recorded. Imaging [facility], [facility] 2023 [facility]24 [facility] [place], [address], [place], [address], 4 16:44:45 US, transvagina l 2023 [address], [address], [place], [address], 4 16:44:45 Medication Orders Medrol (Clark) 4 mg tablets in a dose pack 2023 024 [email or web address][id number], [address], [place], [place], [id number], 4 09:49:56 metformin 500 mg tablet 2023 024 [facility] #[id number], [address] , [place], [place], [id number], 4 14:00:37 nifedipine ER 60 mg tablet,exte nded release 2023 024 [email or web address] [facility] #59487, [address] , [place], [place], [id number], 4 11:38:36 Mirena 21 mcg/24 hr (up to 8 years) 52 mg intrauterin e device 2023 024 [email or web address] Not available 4 11:38:33 norethindro ne (contracept paulo) 0.35 mg tablet 2023 024 [facility] #88729, [address] , [place], [place], [id number], 4 00:00:37 Patient TargetsNo targets recorded. Patient InstructionsNo instructions recorded. Reason for Referral None Reported. Results Created Date Observation Date Name Description Value Unit Range Abnormal Flag Note LastModifiedBy Organization Detail LastModifiedTime 11/27/19 24 11/27/2023 CULTU RE: GROUP B STREP SCREE N result report SEE RESULT S BELOW Test: Cultu re: Group B Strep Scree n - Vagin al/Re ctal Speci men Sourc e: Vagin a/Rec alexandru Speci men Type: Vagin al/Re ctal Speci men Date: 2023 3:21 PM Resul t Date: 2023 2:45 PM Resul t Statu s: Final resul t Abnor mal: No Resul ting Lab: [facility] [address] [facility] [address] Tel: CULTU RE ----- ----- ----- --- No Group B strep isola jez at 2 days (lilliam ctive broth enhan cemen t) Not Available [facility] (Lab) [address] [facility] [facility], [place], [address], 11/30/2023 15:49:32 01/21/20 24 01/21/2024 pregn prasanth test, urine HCG negati ve Not Available [place] [address], [place], [address], 01/21/2024 10:31:06 08/13/20 24 08/13/2024 HEMOG LOBIN A1C hemoglobin A1C 5.4 % 0-5.6 The Ameri can [employer] sar[employer] iatio n recom mends that a prima ry goal of thera py shoul d be a HBA1C of < 7% and that physi cians shoul d reeva luate the treat ment regim en in patie nts with HBA1C value s consi stent ly > 8%. <5.7% Lashay l 5.7 - 6.4% Incre ased risk for diabe sarah >=6.5 % Diagn ostic of diabe sarah <7.0% Goal of thera py >8.0% Actio n sugge sted Not Available [facility] (Lab) [address], [place], [address], 08/14/2024 05:11:42 11/20/19 24 11/20/2023 US, obste tric, bioph ysica l profi le + non-s tress test No observ ation record ed. susan [place] [address], [place], [address], 11/20/2023 10:54:01 11/20/19 24 11/20/2023 US, obste tric, bioph ysica l profi le + non-s tress test No observ ation record ed. bethany Castilloe [address], [place], [address], 11/20/2023 22:17:05 11/20/19 24 non-s tress test No observ ation record ed. [email or web address] Not Available 11/20 14:24:45 11/20/19 24 11/20/2023 non-s tress test No observ ation record ed. [email or web address] [place] [address], [place], [address], 11/20/2023 14:56:50 11/27/19 24 11/27/2023 US, mechelle castillo follo w-up No observ ation record ed. [facility] [address], [place], [address], 11/27/2023 13:04:18 11/27/19 24 11/27/2023 US, mechelle castillo, bioph ysica l profi le + non-s tress test No observ ation record ed. [facility] [address], [place], [address], 11/27/2023 13:04:30 11/27/19 24 11/27/2023 non-s tress test No observ ation record ed. [email or web address] [place] [address], [place], [address], 11/27/2023 10:37:51 11/27/19 24 11/27/2023 US, myrae anna follo w-up No observ ation record ed. [place] [address], [place], [address], 11/27/2023 14:02:19 02/01/20 24 02/01/2024 US, pelvi s No observ ation record ed. [email or web address] [place] [address], [place], [address], 02/01/2024 12:31:49 02/01/20 24 02/01/2024 US, trans vagin al No observ ation record ed. [email or web address] [place] [address], [place], [address], 02/01/2024 12:31:41 02/01/20 24 02/01/2024 US, manuel scott No observ ation record ed. cameron Ryan [address], [place], [address], 02/19/2024 12:33:35 Result Notes None recorded. Problems Name Problem SNOMED Code Status Onset Date Resolution Date Notes Provider Name and Address Organization Details Recorded Time Body mass index 40+ - severely obese 646521525 Active 2021 Opal House MD [address], [place], [address], [facility] 2 14:59:19 Maternal obesity complica ting pregnanc y, childbir th and the puerperi , antepart um 5537645535 07 Active 2021 BMI 48, already doing ante testing Minda munoz, [facility] 2 18:18:41 Elevated blood-pr essure reading without diagnosi s of hyperten nicolle 488880938 Completed 202112/09/2021 Opal House MD [address], [place], [address], [facility] 2 09:52:38 Pregnanc y 21763398 Completed 202107/27/2022 Nevaeh Mullins [facility] 4 14:23:11 Anxiety 68594350 Active off meds for one year Nevaeh Mullins [facility] 4 14:23:06 Hyperten nicolle complica ting pregnanc y, childbir th and the puerperi um, antepart um 8264042302 05 Active ASA, baseline labs, growth US, ante testing at 32w, procardi a, del at 38w Minda munoz [facility] 2 18:18:41 Anxiety 64970280 Completed off meds for one year Minda munoz [facility] 2 18:18:41 Hyperten nicolle complica ting pregnanc y, childbir th and the puerperi , antepart um 7444551548 05 Completed ASA, baseline labs, growth US, ante testing at 32w, lorena healy del at 38w Minda munoz, [facility] 2 18:18:41 Maternal obesity complica ting pregnanc y, childbir th and the puerperi , antepart um 8234094719 07 Completed 2021 BMI 48, already doing ante testing Minda munoz [facility] 2 18:18:41 COVID-19 016417204 Completed 2021 asa daily & serial growth u/s Minda waggoner [facility] 2 18:18:41 Group B Streptoc occus carrier 6734281030 103 Completed 2021 may use clinda Minda waggoner [facility] 2 18:18:41 Prediabe sarah 845449977 Active 2022 early GCT at 20w, stop metformi n 3 d prior Nevaeh Mullins [facility], [facility] 4 14:23:06 Pregnanc y 10793738 Completed 202212/13/2023 Nevaeh Mullins [facility], [facility] 4 14:23:11 Severe obesity complica ting pregnanc y 8714731614 2519078 Active bmi 54 Nevaeh Mullins [facility] 4 14:23:06 Benign essentia l hyperten nicolle complica ting pregnanc y, childbir th and the puerperi um 188372993 Active ASA, baseline labs, deliver 38w, ante testing, growth US, nifedipi ne 60 q day Nevaeh Mullins null, [facility] 4 14:23:06 Anxiety 06323088 Completed off meds for one year Nevaeh Lundle null, [facility] 4 14:23:06 Prediabe sarah 383047247 Completed 2022 early GCT at 20w, stop metformi n 3 d prior Nevaeh Mullins null, [facility] 4 14:23:06 Severe obesity complica ting pregnanc y 3393827997 3572534 Completed bmi 54 Nevaeh Mullins null, [facility] 4 14:23:06 Benign essentia l hyperten nicolle complica ting pregnanc y, childbir th and the puerperi um 763315465 Completed ASA, baseline labs, deliver 38w, ante testing, growth US, nifedipi ne 60 q day Nevaeh Mullins null, [facility] 4 14:23:06 SARS-CoV -2 Completed 2022 ASA & serial growth Nevaeh Mullins null, [facility] 4 14:23:06 Problem Notes None recorded. Procedures Surgical History Date Name Laterality Status Provider Name and Address Organization Details Recorded Time 4 IUD Insertion completed CHRISTEN BARRETT MD [address], [place], [address], [facility] 01/21/2024 14:06:01 4 section completed Adela Diaz [facility] 01/14/2024 09:50:39 2 Date of Last Pap Smear completed Sandy Baker [facility] 01/03/2022 13:13:54 2 procedure on wrist completed Laurita Soares [facility] 11/23/2021 14:46:00 5 tonsilectomy/ adenoids completed Sandy Baker [facility] 01/04/2022 10:38:21 Imaging Results Imaging Date Name Status LastModified by Organization Details LastModified Time 11/20/2023 US, obstetric, biophysical profile + non-stress test completed [facility] [address], [place], [address], 11/20/2023 10:54:01 11/20/2023 US, obstetric, biophysical profile + non-stress test completed bethany Ryan [address], [place], [address], 11/20/2023 22:17:05 11/20/2023 non-stress test [address] 11/20/2023 14:24:45 11/20/2023 non-stress test completed [place] [address], [place], [address], 11/20/2023 14:56:50 11/27/2023 US, obstetric, follow-up completed [facility] [address], [place], [address], 11/27/2023 13:04:18 11/27/2023 US, obstetric, biophysical profile + [facility] [address] [place], [address], 11/27/2023 13:04:30 11/27/2023 non-stress test completed [place] [address], [place], [address], 11/27/2023 10:37:51 11/27/2023 US, obstetric, follow-up completed [email or web address] [place] [address], [place], [address], 11/27/2023 14:02:19 02/01/2024 US, pelvis completed [email or web address] [place] [address], [place], [address], 02/01/2024 12:31:49 02/01/2024 US, transvaginal completed [email or web address] [place] [address], [place], [address], 02/01/2024 12:31:41 02/01/2024 US, pelvis completed [email or web address] [place] [address], [place], [address], 02/19/2024 12:33:35 Procedure Notes None recorded. Medical Equipment None Reported. Allergies No known drug allergies Medications Name Sig Start Date Stop Date Status Note LastModified by Organization Details LastModified Time nifedipine ER 30 mg tablet,exte nded release 24 hr TAKE 1 TABLET BY MOUTH EVERY DAY 08/23 completed Not Available Not Available Not Available medroxyprog esterone 10 mg tablet TAKE 1 TABLET BY MOUTH EVERY DAY FOR 7 DAYS 05/15 completed Not Available Not Available Not Available Mirena 21 mcg/24 hr (up to 8 years) 52 mg intrauterin e device Take 1 device by intrauter ine route. 02/19 completed Not Available Not Available Not Available metformin 500 mg tablet TAKE 1 TABLET BY MOUTH TWICE DAILY active Not Available Not Available No t Available venlafaxine ER 37.5 mg capsule,ext ended release 24 hr TAKE 1 CAPSULE BY MOUTH EVERY DAY 05/15 completed Not Available Not Available Not Available venlafaxine ER 75 mg capsule,ext ended release 24 hr TAKE 1 CAPSULE BY MOUTH EVERY DAY IN THE MORNING 02/12 completed Not Available Not Available Not Available cetirizine 10 mg tablet active Not Available Not Available Not Available ibuprofen 800 mg tablet TAKE 1 TABLET BY MOUTH EVERY 8 HOURS WITH FOOD NEEDED 11/23 completed Not Available Not Available Not Available fluconazole 150 mg tablet TAKE 1 TABLET BY MOUTH EVERY DAY NEEDED 11/23 completed Not Available Not Available Not Available ondansetron HCl 4 mg tablet TAKE 1 TABLET BY MOUTH EVERY 8 HOURS NEEDED 02/12 completed Not Available Not Available Not Available prednisone 20 mg tablet TAKE 2 TABLETS BY MOUTH EVERY DAY FOR 5 DAYS 11/23 completed Not Available Not Available Not Available topiramate 25 mg tablet TAKE 2 TABLETS BY MOUTH EVERY DAY AT BEDTIME 05/15 completed Not Available Not Available Not Available metronidazo le 500 mg tablet TAKE 1 TABLET BY MOUTH EVERY 12 HOURS FOR 7 DAYS DIRECTED 11/23 completed Not Available Not Available Not Available hydroxyzine HCl 50 mg tablet TAKE 1 TABLET BY MOUTH DAILY NEEDED 05/15 completed Not Available Not Available Not Available tramadol 50 mg tablet TAKE 1 TABLET BY MOUTH EVERY DAY FOR 7 DAYS NEEDED 11/23 completed Not Available Not Available Not Available oxycodone-a cetaminophe n 5 mg-325 mg tablet TAKE 1 TABLET BY MOUTH EVERY 6 HOURS 01/20 completed Not Available Not Available Not Available nifedipine ER 60 mg tablet,exte nded release 24 hr Take 1 tablet every day by oral route. active Not Available Not Available No t Available [employer] Ultra Test strips USE TO TEST BLOOD SUGAR DAILY. active Not Available Not Available No t Available phenazopyri dine 100 mg tablet TAKE 2 TABLETS BY MOUTH THREE TIMES DAILY FOR 2 DAYS 11/23 completed Not Available Not Available Not Available nystatin 100,000 unit/gram topical cream APPLY TOPICALLY TO THE AFFECTED AREA TWICE DAILY FOR 7 DAYS 11/23 completed Not Available Not Available Not Available lisinopril 10 mg tablet TAKE 1 TABLET BY MOUTH EVERY DAY IN THE MORNING 03/26 completed Not Available Not Available Not Available hydrocortis one 2.5 % topical cream APPLY THIN LAYER TOPICALLY TO THE AFFECTED AREA TWICE DAILY active Not Available Not Available No t Available Baby Aspirin 81 mg chewable tablet Chew 1 tablet every day by oral route. 01/20 completed Not Available Not Available Not Available methylpredn isolone 4 mg tablets in a dose pack FOLLOW PACKAGE DIRECTION S 01/13 completed Not Available Not Available Not Available norethindro ne (contracept paulo) 0.35 mg tablet TAKE 1 TABLET BY MOUTH EVERY DAY active Not Available Not Available No t Available nifedipine ER 60 mg tablet,exte nded release TAKE 1 TABLET BY MOUTH EVERY DAY 02/19 completed Not Available Not Available Not Available ondansetron 4 mg disintegrat ing tablet DISSOLVE 1 TABLET ON THE TONGUE EVERY 8 HOURS NEEDED 11/23 completed Not Available Not Available Not Available fluticasone propionate 50 mcg/actuati on nasal spray,suspe nsion ADMINISTE R 1 TO 2 SPRAYS IN EACH NOSTRIL EVERY DAY active Not Available Not Available No t Available loratadine 10 mg tablet TAKE 1 TABLET BY MOUTH DAILY NEEDED 11/23 completed Not Available Not Available Not Available amoxicillin 875 mg-potassiu m clavulanate 125 mg tablet TAKE 1 TABLET BY MOUTH EVERY 12 HOURS FOR 7 DAYS DIRECTED 11/23 completed Not Available Not Available Not Available nitrofurant oin monohydrate /macrocryst als 100 mg capsule TAKE 1 CAPSULE BY MOUTH EVERY 12 HOURS WITH MEALS FOR 7 DAYS 01/13 completed Not Available Not Available Not Available aspirin 08/23 completed Not Available Not Available Not Available lisinopril 01/29 completed Not Available Not Available Not Available 02/19 completed Not Available Not Available Not Available metformin ER 500 mg 24 hr tablet,exte nded release (gastric retention) 03/26 completed Not Available Not Available Not Available FeroSul 325 mg (65 mg iron) tablet TAKE 1 TABLET BY MOUTH EVERY OTHER DAY 02/12 completed Not Available Not Available Not Available Blisovi Fe /20 (28) 1 mg-20 mcg (21)/75 mg (7) tablet TAKE 1 TABLET BY MOUTH EVERY DAY 02/12 completed Not Available Not Available Not Available Isibloom 0.15 mg-0.03 mg tablet TAKE 1 TABLET BY MOUTH EVERY DAY 03/26 completed Not Available Not Available Not Available OneTouch Ultra2 Meter USE DIRECTED TO TEST BLOOD SUGAR. active Not Available Not Available No t Available OneTouch Delica Plus Lancet 33 gauge USE TO TEST BLOOD SUGAR DAILY. active Not Available Not Available No t Available Vitals Date Recorded Body height Systolic blood pressure Diastolic blood pressure Provider Name and Address Organization Details Last Updated DateTime 12/14/2023 162.56 cm 140 mm[Hg] 82 mm[Hg] Latrice Vaca [facility] 12/14/2023 10:00:58 Date Recorded Body height Body mass index (BMI) Body weight Systolic blood pressure Diastolic blood pressure Provider Name and Address Organization Details Last Updated DateTime 01/14/2024 162.56 cm 53.5 kg/m2 050965.3 8 g 126 mm[Hg] 85 mm[Hg] [facility] 4 09:49:41 Date Recorded Body height Body mass index (BMI) Body weight Systolic blood pressure Diastolic blood pressure Provider Name and Address Organization Details Last Updated DateTime 01/21/2024 162.56 cm 52.7 kg/m2 943218.1 4 g 135 mm[Hg] 80 mm[Hg] [facility] 4 10:25:00 Date Recorded Body height Body mass index (BMI) Body weight Systolic blood pressure Diastolic blood pressure Provider Name and Address Organization Details Last Updated DateTime 02/20/2024 162.56 cm 52.7 kg/m2 716290.5 8 g 112 mm[Hg] 78 mm[Hg] Laila Saavedra [facility] 4 11:38:10 Social History Question Answer Notes LastModified by Organizat ion Details LastModified Time Tobacco Smoking Status Never Smoker Natalia Wilsonjosé luis munoz, [facility] 10/30/2023 11:06:51 Do You Have An Advance Directive? No [email or web address] Information n ot available 01/04/2022 What Is Your Level Of Alcohol Consumption? None Information not available 11/09/2021 If You Are , What Was Your Level Of Alcohol Consumption Prior To ? Occasional [email or web address] Information not available 10/30/2023 Are You Blind Or Do You Have Difficulty Seeing? No [email or web address] Information n ot available 01/04/2022 What Is Your Level Of Caffeine Consumption? Occasional [email or web address] Information not available 05/10/2022 How Much Tobacco Do You Chew? None [email or web address] Information not available 01/04/2022 In The 14 Days Before Symptom Onset, Have You Had Close Contact With A Laboratory-confirm ed COVID-19 While That Case Was Ill? No Information n ot available 01/04/2022 In The 14 Days Before Symptom Onset, Have You Had Close Contact With A Person Who Is Under Investigation For COVID-19 While That Person Was Ill? No [email or web address] Information not available 01/04/2022 Have You Been To An Area Known To Be High Risk For COVID-19? No [email or web address] Information not available 01/04/2022 Are You Deaf Or Do You Have Serious Difficulty Hearing? No [email or web address] Information not available 01/04/2022 What Type Of Diet Are You Following? REGULAR [email or web address] Information n ot available 05/10/2022 What Is The Highest Grade Or Level Of School You Have Completed Or The Highest Degree You Have Received? 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 No [email or web address] Information not available 01/04/2022 Do You Use Protection During Sex? No [email or web address] Information not available 01/04/2022 Do You Use Your Seat Belt Or Car Seat Routinely? Yes [email or web address] Information not available 01/04/2022 Do You Have Smoke And Carbon Monoxide Detectors In Your Home? Yes [email or web address] Information not available 01/04/2022 How Much Tobacco Do You Smoke? No [email or web address] Information not available 01/04/2022 Do You Feel Stressed (tense, Restless, Nervous, Or Anxious, Or Unable To Sleep At Night)? [id number] [email or web address] Information not available 01/04/2022 Do You Use Any Illicit Or Recreational Drugs? No Information not available 11/09/2021 Do You Use Sunscreen Routinely? Yes [email or web address] Information not available 01/04/2022 Has Tobacco Cessation Counseling Been Provided? No [email or web address] Information not available 10/30/2023 Have You Used IV Drugs? No Information not available 01/04/2022 Do You Or Have You Ever Used Any Other Forms Of Tobacco Or Nicotine? No [email or web address] Information not available 10/30/2023 Sex: Unknown Functional Status Question Answer Note LastModified by Organizat ion Details LastModified Time Do you have difficulty walking or climbing stairs? No [email or web address] Information not available 10/30/2023 Are you able to walk? YESWOREST [email or web address] Information not available 01/04/2022 Are you able to care for yourself? Yes [email or web address] Information not available 10/30/2023 Do you have difficulty dressing or bathing? No [email or web address] Information not available 10/30/2023 What is your exercise level? Moderate [email or web address] Information not available 01/04/2022 Mental Status None recorded. Family History Relationship Description Onset Age of this Age Resolved Age Notes LastModified by Organization Details LastModified Time Father Diabetes mellitus [email or web address] Not available 2021 14:46:17 Mother Diabetes mellitus [email or web address] Not available 05/10 12:31:30 Mother Heart disease [email or web address] Not available 2021 14:46:23 Mother Hypertensive disorder [email or web address] Not available 2022 11:20:39 Mother Mental disorder [email or web address] Not available 2022 11:20:39 Mother Depressive disorder [email or web address] Not available 05/10 12:31:30 Mother Anxiety disorder [email or web address] Not available 2022 11:20:39 Brother Asthma [email or web address] Not availabl e 01/04/2022 10:37:51 Medical History Condition Response Allergies (Food, seasonal, environmental ) Y Other N Breast Cancer N Drug/Latex Allergies/Reactions N Blood Transfusion N Dermatologic Disorders N Lung Disease N Defects or Inherited Disease N Breast Problem N Gestational Diabetes N Hematologic disorders N Anesthesia Complications N History of STI N Deep Vein Thrombosis N Polycystic ovary syndrome N Anxiety Disorder Y Autoimmune disease N Arthritis N Infertility N Polyps N Acid Reflux (GERD) N History of abnormal pap N Cancer N Stroke N Varicosities N Neurologic/Epilepsy N Endometriosis N High Cholesterol N Headaches Y Fibromyalgia N Kidney Disease N Heart Problems N Kidney or Bladder Problems N Thyroid Problems N GI Problems N Eating Disorder N Anemia N Art (IVF or FET) N Psychiatric Illness N Ovarian Cancer N Diabetes N Pulmonary (TB, Asthma) N Hepatitis/Liver Disease N No Past Medical History N Eczema N Urinary Tract Infection N Abuse/Domestic Violence N Asthma N Trauma/Violence N Depression/ depression Y Heart Disease N Pre-Eclampsia N Hypertension Y Osteoporosis N Thrombophilias N Gynecological History Statement/Question Response Flow Heavy Date of Last Mammogram Date of LMP 01/31/2024 On BCP's at Conception? N N Was last menstrual period normal N STIs/STDs N HPV Vaccine Y Duration of Flow (days) 7 Current Control Method IUD Frequency of Cycle (Q days) 7 Most Recent Bone Density Sexually Active? Y Menses Monthly Y Age of first menstrual cycle 9 Date of Last Pap Smear 11/23/2021 Sexual Problems? N LMP Approximate N Obstetrics History GPAL:G 2 P 2 0 0 2 Type Value Full Term 2 Living 2 Total 2 Past Encounters Encounter ID Performer Location Encounter Start Date Encounter Closed Date Diagnosis/Indication Diagnosis SNOMED-CT Code Diagnosis ICD10 Code Diagnosis Note [id number] Opal House MD [place] [address] [address] 11/09/2021 09:29:19 11/15/2021 13:30:46 [id number] Deana Freeman [place] [address],[place] [address] 11/23/2021 14:12:17 11/23/2021 14:34:01 [id number] Opal House MD [place] [address],[place] [address] 11/23/2021 14:13:02 11/23/2021 15:25:35 test positive 765540805 Z32.01 Maternal o besity complicating , childbirth and the puerperium, antepartum 5911533194 07 O99.211 Screening for malignant neoplasm of cervix 264984154 Z12.4 Elevated blood-pressure reading without diagnosis of hypertension 299500786 R03.0 Venereal d isease screening 503126189 Z11.3 [id number] Evelineniesha Puckett [place] [address],[place] [address] 12/07/2021 14:45:16 12/07/2021 15:21:34 screening 422996560 Z36.82 [id number] Opal House MD [place] [address],[place] [address] 12/07/2021 14:45:36 12/08/2021 15:00:26 Routine care 294384490 Z34.91 Chronic hy pertension complicating AND/OR reason for care during 38237062 O16.9 Maternal o besity complicating , childbirth and the puerperium, antepartum 0534021541 07 O99.211 Anxiety 79776355 F41.9 [id number] [facility] [address],[place] [address] 01/04/2022 10:19:16 01/04/2022 11:34:53 [id number] [facility] [address],[place] [address] 02/01/2022 09:48:14 02/01/2022 11:09:09 screening for malformation 062852292 Z36.3 [id number] Opal House MD [place] [address],[place] [address] 02/01/2022 09:48:35 02/01/2022 14:00:44 Hypertension complicating , childbirth and the puerperium, antepartum 0340829035 05 O16.9 Maternal o besity complicating , childbirth and the puerperium, antepartum 9469509707 07 O99.211 Anxiety 33106143 F41.9 Routine an tenatal care 451493151 Z34.91 [id number] [facility] [address],[place] [address] 1 03/01/2022 14:27:20 03/02/2022 09:51:10 screening 696833278 Z36.2 [id number] Opal House MD [place] [address],[place] [address] 03/01/2022 14:27:51 03/01/2022 15:56:24 Hypertension complicating , childbirth and the puerperium, antepartum 8340469615 05 O16.9 Maternal o besity complicating , childbirth and the puerperium, antepartum 5105409226 07 O99.211 Routine an tenatal care 601585178 Z34.91 [id number] Opal House MD [place] [address],[place] [address] 03/29/2022 09:55:17 04/03/2022 15:00:23 Routine care 590412203 Z34.91 COVID-19 305480138 U07.1 [id number] Deana Freeman [place] [address],[place] [address] 1 03/29/2022 09:56:20 03/29/2022 10:37:13 Maternal obesity complicating , childbirth and the puerperium, antepartum 3506735057 07 O99.213 O16.9 O99.891 U07.1 Z3A.28 [id number] Opal House MD [place] [address],[place] [address] 04/10/2022 14:42:30 04/10/2022 17:06:04 Hypertension complicating , childbirth and the puerperium, antepartum 4629295566 05 O16.9 Maternal o besity complicating , childbirth and the puerperium, antepartum 0658539755 07 O99.213 O16.9 O99.891 U07.1 Z3A.28 [id number] Adela Diaz [place] [address],[place] [address] 04/26/2022 15:51:39 04/26/2022 16:56:58 Chronic hypertension complicating AND/OR reason for care during 86657688 O16.9 [id number] Eveline Puckett [place] [address],[place] [address] 04/26/2022 15:53:42 04/26/2022 17:42:46 Chronic hypertension complicating AND/OR reason for care during 34820957 O10.013 U07.1 O99.213 Z3A.32 [id number] Opal House MD [place] [address],[place] [address] 04/26/2022 15:54:18 05/01/2022 15:19:52 Hypertension complicating , childbirth and the puerperium, antepartum 6217958978 05 O16.9 Maternal o besity complicating , childbirth and the puerperium, antepartum 2171130691 07 O99.213 O16.9 O99.891 U07.1 Z3A.28 [id number] Karen Reece [place] [address],[place] [address] 05/03/2022 10:37:56 05/03/2022 11:51:59 Hypertension complicating , childbirth and the puerperium, antepartum 8239424690 05 O16.9 [id number] Deana Motason [place] [address],[place] [address] 05/03/2022 10:38:28 05/03/2022 12:05:21 Chronic hypertension complicating AND/OR reason for care during 56806680 O10.013 U07.1 O99.213 Z3A.33 [id number] Opal House MD [place] [address],[place] [address] 05/03/2022 10:38:48 05/03/2022 12:49:24 Hypertension complicating , childbirth and the puerperium, antepartum 1572996627 05 O16.9 Maternal o besity complicating , childbirth and the puerperium, antepartum 2762210236 07 O99.213 O16.9 O99.891 U07.1 Z3A.28 [id number] Sandy Baker [place] [address],[place] [address] 05/10/2022 11:27:36 05/11/2022 15:58:09 Chronic hypertension complicating AND/OR reason for care during 17885968 O16.9 [id number] Eveline Puckett [place] [address],[place] [address] 05/10/2022 11:27:50 05/10/2022 12:36:06 -induced hypertension 18717437 O99.213 Z3A.34 O10.013 [id number] Susana Osorio CNM [place] [address],[place] [address] 05/10/2022 11:28:10 05/10/2022 13:10:47 Routine care 858938692 Z34.93 [id number] [facility] [address],[place] [address] 05/17/2022 10:47:16 05/17/2022 12:11:55 Maternal obesity complicating , childbirth and the puerperium, antepartum 7113007013 07 O99.213 O16.3 Z3A.35 305720 Eveline Pucektt [place] [address],[place] [address] 05/17/2022 10:48:11 05/17/2022 12:10:36 Maternal obesity complicating , childbirth and the puerperium, antepartum 7360526991 07 O99.213 O16.3 Z3A.35 [id number] Opal House MD [place] [address],[place] [address] 05/17/2022 10:48:34 05/17/2022 14:13:59 Hypertension complicating , childbirth and the puerperium, antepartum 1869525037 05 O16.9 Maternal o besity complicating , childbirth and the puerperium, antepartum 0082907918 07 O99.213 O16.3 Z3A.35 [id number] [facility] [address],[place] [address] 1 05/24/2022 10:45:55 05/24/2022 12:23:48 Chronic hypertension complicating AND/OR reason for care during 00844228 O10.013 U07.1 O99.213 Z3A.33 [id number] Deana Freeman [place] [address],[place] [address] 05/24/2022 10:46:21 05/24/2022 12:29:27 Pre-existing maternal disease complicating 3348435768 6106 O99.891 O16.3 O99.213 U07.1 Z86.16 Z3A.36 [id number] Opal House MD [place] [address],[place] [address] 1 05/24/2022 10:46:43 05/24/2022 18:11:11 Hypertension complicating , childbirth and the puerperium, antepartum 9303584499 05 O16.9 Maternal o besity complicating , childbirth and the puerperium, antepartum 2383905593 07 O99.213 O16.3 Z3A.35 [id number] Adelacasa Diaz [place] [address],[place] [address] 05/31/2022 10:39:48 05/31/2022 15:28:43 Maternal obesity complicating , childbirth and the puerperium, antepartum 9909444278 07 O99.213 O16.3 Z3A.35 [id number] Deanacindi Motason [place] [address],[place] [address] 05/31/2022 10:40:21 05/31/2022 11:59:01 Chronic hypertension complicating AND/OR reason for care during 35026513 O10.013 O99.213 Z3A.37 [id number] Opal House MD [place] [address],[place] [address] 05/31/2022 10:40:44 05/31/2022 15:11:23 Group B Streptococcus carrier 2690905073 103 Z22.330 Hypertensi on complicating , childbirth and the puerperium, antepartum 4581073009 05 O16.9 [id number] Opal House MD [place] [address],[place] [address] 07/18/2022 11:18:38 07/18/2022 12:36:36 care 783703936 Z39.2 [id number] Opal House MD [place] [address],[place] [address] 08/01/2022 17:46:46 08/02/2022 12:38:07 Anxiety 09236409 F41.9 Initial pr escription of oral contraception 748823252 Z30.011 Essential hypertension 18698217 I10 [id number] Opal House MD [place] [address],[place] [address] 08/23/2022 11:16:37 08/23/2022 15:36:17 Anxiety 22233210 F41.9 Surveillan ce of oral contraception done 3461630647 09117 Z30.41 [id number] MD Kaley Phipps [address],[place] [address] 02/12/2023 17:31:31 02/13/2023 18:12:27 Secondary amenorrhea 449446072 N91.1 Gynecologi c examination 69461869 Z01.419 Z11.3 Z11.8 Venereal d isease screening 265152428 Z11.3 Surveillan ce of oral contraception 149253996 Z30.41 [id number] Opal House MD [place] [address],[place] [address] 03/26/2023 15:31:12 03/27/2023 09:49:48 Prediabetes 309625887 R73.03 Secondary amenorrhea 156 118092 N91.1 Body mass index 40+ - severely obese 919428197 Z68.43 [id number] [facility] [address],[place] [address] 05/15/2023 15:41:50 05/15/2023 16:18:09 [id number] Opal House MD [place] [address],[place] [address] 05/15/2023 15:42:32 05/16/2023 15:08:54 test positive 638373614 Z32.01 Venereal d isease screening 542929804 Z11.3 Body mass index 40+ - severely obese 767824717 Z68.43 Hypertensi on complicating , childbirth and the puerperium, antepartum 5408285911 05 O16.9 Prediabetes 993051189 R7 3.03 early GCT 20w, repeat 28w if passes Anxiety 24464505 F41.9 Vaccination not done 215 6099058 9108 Z28.9 covid [id number] Deana Freeman [place] [address],[place] [address] 06/15/2023 09:56:37 06/15/2023 10:35:41 screening 548487615 Z36.82 [id number] Opal House MD [place] [address],[place] [address] 06/15/2023 09:57:21 06/15/2023 12:18:07 Routine care 943873269 Z34.91 Anxiety 57737125 F41.9 Benign ess ential hypertension complicating , childbirth and the puerperium 925757250 O10.019 Hypertensi on complicating , childbirth and the puerperium, antepartum 0303938019 05 O16.9 Severe obe sity complicating 0696764537 0673310 O99.211 Prediabetes 829159261 R7 3.03 early GCT 20w, repeat 28w if passes [id number] CHRISTEN BARRETT MD [place] [address],[place] [address] 07/13/2023 11:06:44 07/16/2023 11:41:40 Routine care 569698412 Z34.92 [id number] Ella Jerry [place] [address],[place] [address] 08/09/2023 09:51:30 08/09/2023 11:21:40 screening for malformation 507879893 Z36.3 O16.2 O99.210 Z3A.20 [id number] CHRISTEN BARRETT MD [place] [address],[place] [address] 08/09/2023 09:51:57 08/09/2023 11:38:51 Gestation period, 20 weeks 79430550 Z3A.20 Chronic hy pertension complicating AND/OR reason for care during 45418908 O16.9 Maternal o besity complicating , childbirth and the puerperium, antepartum 2055456781 07 O99.212 Prediabetes 975966143 R7 3.03 [id number] [facility] [address],[place] [address] 09/14/2023 13:31:08 09/14/2023 14:13:19 Chronic hypertension complicating AND/OR reason for care during 05462803 O16.3 O99.214 Z86.16 Z3A.25 [id number] CHRISTEN BARRETT MD [place] [address],[place] [address] 09/14/2023 13:31:37 09/14/2023 14:42:14 Gestation period, 25 weeks 65047523 Z3A.25 History of SARS-CoV-2 29 13644181 12426245 Z86.16 Chronic hy pertension complicating AND/OR reason for care during 65950370 O16.9 [id number] [facility] [address],[place] [address] 10/12/2023 09:37:56 10/12/2023 10:44:06 Chronic hypertension complicating AND/OR reason for care during 43977952 O16.3 O99.214 Z86.16 Z3A.29 [id number] CHRISTEN BARRETT MD [place] [address],[place] [address] 10/12/2023 09:38:23 10/12/2023 11:06:56 Benign essential hypertension complicating , childbirth and the puerperium 949018637 O10.019 Body mass index 40+ - severely obese 384782117 Z68.43 Anxiety 70302990 F41.9 Maternal o besity complicating , childbirth and the puerperium, antepartum 3260428209 07 O99.212 Prediabetes 240691896 R7 3.03 Gestation period, 29 weeks 67969937 Z3A.29 [id number] Karen Reece [place] [address],[place] [address] 10/30/2023 10:58:33 10/31/2023 09:26:36 Benign essential hypertension complicating , childbirth and the puerperium 196222698 O10.019 [id number] [facility] [address],[place] [address] 10/30/2023 10:58:58 10/30/2023 12:07:34 Chronic hypertension complicating AND/OR reason for care during 66280859 O10.013 O99.213 Z3A.32 [id number] CHRISTEN BARRETT MD [place] [address],[place] [address] 10/30/2023 11:05:59 10/31/2023 08:42:28 Benign essential hypertension complicating , childbirth and the puerperium 402491266 O10.019 Body mass index 40+ - severely obese 735895750 Z68.43 Maternal o besity complicating , childbirth and the puerperium, antepartum 4666159843 07 O99.212 Severe obe sity complicating 6024943914 0019906 O99.211 [id number] CHRISTEN BARRETT MD [place] [address],[place] [address] 1 11/06/2023 09:28:48 11/06/2023 11:23:56 Benign essential hypertension complicating , childbirth and the puerperium 594138251 O10.019 Body mass index 40+ - severely obese 123019482 Z68.43 Hypertensi on complicating , childbirth and the puerperium, antepartum 2592781811 05 O16.9 Maternal o besity complicating , childbirth and the puerperium, antepartum 1893175170 07 O99.212 [id number] [facility] [address],[place] [address] 11/06/2023 09:29:23 11/06/2023 10:13:41 Benign essential hypertension complicating , childbirth and the puerperium 841416806 O10.019 [id number] [facility] [address],[place] [address] 11/06/2023 09:36:12 11/06/2023 10:45:06 Chronic hypertension complicating AND/OR reason for care during 20554849 O10.013 O99.213 O35.3XX0 O36.63X0 Z3A.33 [id number] Adela Diaz [place] [address],[place] [address] 1 11/13/2023 09:18:43 11/13/2023 10:14:36 Benign essential hypertension complicating , childbirth and the puerperium 601715731 O10.019 [id number] Eveline Puckett [place] [address],[place] [address] 11/13/2023 09:19:05 11/13/2023 10:39:34 Chronic hypertension complicating AND/OR reason for care during 25643095 O10.013 O99.213 Z3A.34 [id number] CHRISTEN BARRETT MD [place] [address],[place] [address] 11/13/2023 09:19:26 11/13/2023 11:18:17 Benign essential hypertension complicating , childbirth and the puerperium 882692411 O10.019 Body mass index 40+ - severely obese 689569579 Z68.43 Anxiety 57195444 F41.9 Severe obe sity complicating 5557936153 1900495 O99.211 Gestation period, 34 weeks 73126835 Z3A.34 [id number] [facility] [address],[place] [address] 11/20/2023 09:50:00 11/20/2023 15:10:11 Chronic hypertension complicating AND/OR reason for care during 75392913 O10.013 O99.213 Z86.16 Z3A.35 [id number] Ella Jerry [place] [address],[place] [address] 1 11/20/2023 09:50:19 11/20/2023 10:23:00 Chronic hypertension complicating AND/OR reason for care during 07312732 O10.013 O99.213 Z86.16 Z3A.35 [id number] CHRISTEN BARRETT MD [place] [address],[place] [address] 11/20/2023 09:50:39 11/20/2023 12:11:21 Benign essential hypertension complicating , childbirth and the puerperium 585160298 O10.019 Body mass index 40+ - severely obese 946677981 Z68.43 Anxiety 11127714 F41.9 Gestation period, 35 weeks 25202498 Z3A.35 [id number] Ella Jerry [place] [address],[place] [address] 11/27/2023 09:28:06 11/27/2023 10:08:31 Chronic hypertension complicating AND/OR reason for care during 94511752 O99.210 O16.3 Z86.16 Z3A.36 557122 Adela Diaz [place] [address],[place] [address] 11/27/2023 09:28:25 11/27/2023 10:47:49 Benign essential hypertension complicating , childbirth and the puerperium O10.019 [id number] CHRISTEN BARRETT MD [place] [address],[place] [address] 11/27/2023 09:29:00 11/27/2023 11:55:54 Benign essential hypertension complicating , childbirth and the puerperium 604125148 O10.019 Body mass index 40+ - severely obese 576714102 Z68.43 Maternal o besity complicating , childbirth and the puerperium, antepartum 7934819892 07 O99.212 Gestation period, 36 weeks 03984249 Z3A.36 [id number] CHRISTEN BARRETT MD [place] [address],[place] [address] 12/14/2023 09:46:14 12/14/2023 14:34:16 Benign essential hypertension complicating , childbirth and the puerperium 902269706 O10.019 - BP mild range today- asymptomat ic- continue nifedipine XL 60mg daily Pruritic rash 00284704 L 28.2 - likely 2/2 hypersensi tivity reaction from drape adhesive- failed management with PO benadryl and topical hydrocorti sone- will trial course of oral steroids; patient not breastfeed ing- patient to call if rash does not improve in 1 week Prediabetes 327252815 R7 3.03 [id number] Adela Diaz [place] [address],[place] [address] 01/14/2024 09:41:42 01/14/2024 10:08:54 care 354235023 Z39.2 S/p RLTCS 6 weeks ago here today for a visit.1. Patient recovering well2. Plans to continue formula feeding3. Interested in Mirena IUD for contracept ion at this time. Risks, benefits, and alternativ es reviewed with the patient. Discussed abstinence until IUD placement4 . Patient instructed to follow up for IUD placement [id number] CHRISTEN BARRETT MD [place] [address],[place] [address] 01/21/2024 10:15:02 01/21/2024 14:11:43 Insertion of intrauterine contraceptive device 07535269 Z30.430 - terminated due to sounding to 14cm- will have patient complete pelvic US prior to additional placement attempts [id number] [facility] [address],[place] [address] 02/01/2024 11:49:48 02/01/2024 12:37:51 Enlarged uterus 808473882 N85.2 [id number] CHRISTEN BARRETT MD [place] [address],[place] [address] 02/20/2024 11:28:05 02/21/2024 06:35:31 Contraception care management 664687388 Z30.9 Discussed with patient risks, benefits, and alternativ es of contracept ion. Discussed all options, including natural family planning, condoms, combined oral contracept woodrow, contracept paulo patch, Nuva-ring, Depo-Prove ra, Nexplanon, intrauteri ne device, and sterilizat ion (tubal ligation, vasectomy) . Advised that of the above listed options, only condoms can prevent sexually transmitte d infections and that condoms can be used together with any form of contracept ion. Patient has contraindi cation to estrogen containing contracept ion due to hypertensi on. After extensive counseling , patient at this time desires POPs.- discussed that uterus may still be involuting from , can recheck pelvic US in 3-6 months if unhappy with POPs and reconsider IUD placement. Health Concerns Section Related Observation LastModified by Organization Detai ls LastModified Time None Recorded Concern Status LastModified by Organization Details LastModified Time None Recorded Advance Directives Directive N: Payers Encounter Date Sequence Insurance Name Policy Number Policy Oneil Covered Member ID Oneil Member ID Guarantor Name 12/14/2023 1 [facility] ON OR AFTER 04/14/21 (MEDICAID REPLACEMENT - HMO) Gwendolyn Desouza [id number] Gwendolyn Desouza 01/14/2024 1 [facility] ON OR AFTER 04/14/21 (MEDICAID REPLACEMENT - HMO) Gwendolyn Desouza [id number] Gwendolyn Desouza 01/21/2024 1 [facility] ON OR AFTER 04/14/21 (MEDICAID REPLACEMENT - HMO) Gwendolyn Desouza [id number] Gwendolyn Desouza 02/01/2024 1 [facility] ON OR AFTER 04/14/21 (MEDICAID REPLACEMENT - HMO) Gwendolyn Desouza [id number] Gwendolyn Desouza 02/20/2024 1 [facility] ON OR AFTER 04/14/21 (MEDICAID REPLACEMENT - HMO) Gwendolyn Desouza [id number] Gwendolyn Desouza Notes Date Note Type Note Provider Name and Address Organization Details Recorded Time 12/14/2023 text/html Presents for fol low up of BP . Denies headache, vision changes, chest pain, dyspnea, RUQ pain or epigastric pain. Continues on nifedipine 60mg daily. Continues to have a red rash worsening on her abdomen. She has tried PO benadryl and topical steroid cream without relief. No fevers or chills. No abnormal bleeding. CHRISTEN BARRETT MD [address], [place], [address], [facility] 12/14/2023 14:00:12 01/14/2024 text/html S/P RLTCS on 12/05/23. was complicated by chronic HTN and obesity. Complications with delivery: none. Patient denies any specific problems since delivery. Patient overall feeling well. Patient is formula feeding without problems. Has not had a period yet. No bleeding. Bowel and bladder function are normal. Pap due 11/2024. Denies any signs or symptoms of depression. Is coping with parenting well. Patient has been sexually active since delivery, no pain, last on Sunday using condoms. Patient is interested in contraception at this time. Would like Mirena IUD. Adela munoz, [facility] 01/14/2024 10:07:51 01/21/2024 text/html Patient presents for IUD insertion. CHRISTEN BARRETT MD [address], [place], [address], [facility] 01/21/2024 14:09:33 02/20/2024 text/html Patient in to discuss control options. Was previously scheduled for IUD placement, however uterus sounded to 12cm, confirmed with pelvic US, which is beyond recommended depth for Mirena IUD. Discussed unsure of efficacy as IUD was not studied in this population. CHRISTEN BARRETT MD [address], [place], [address], [facility] 02/21/2024 00:00:42 OBGyn Episode Ob Episode Information Episode Created Date Number of Fetuses Patient Bloodtype Patient rh Status Prepregnancy Weight lbs Domestic Partner Domestic Partner Phone Father Name [employer] Status 12/07/19 22 1 AB Positive 283 CLOSED Fetus Data First Name Last Name Admitted to NICU Weight (g) Sex Living Outcome Pediatric Complications Fetus ID Race Codes Race Delivery Type [facility] n 3713.78 45 M true Full Term [id number] Vaginal Delivery Problems Problem Notes House pt! Problem Name Start Date End Date Resolution Snomed Code Not e COVID-19 03/21/2022 [id number] asa daily & serial growth u/s Anxiety 84240013 off meds f or one year Hypertension complicating , childbirth and the puerperium, antepartum 363861203901 ASA, baseline labs, growth US, ante testing at 32w, procardia, del at 38w Maternal obesity complicating , childbirth and the puerperium, antepartum 11/23/2021 915807775113 BMI 4 8, already doing ante testing Group B Streptococcus carrier 05/29/2022 [id number] may use clinda Adonis Calculation Initial Adonis Date Initial Exam Date Initial Exam Provider Initial Ultrasound Date Last Menstrual Period Date Ultra Sound Weeks Gestation 06/17/2022 12/07/2021 11/23/2021 09/10/2021 10 Eighteen To Twenty Week Adonis Update Ultra Sound Date Fundal Height At Umbil Quickening Date Ultra Sound Latest Weeks Gestation Final Adonis Confirmed By Final Adonis Confirmed Date Final Adonis Date Ultra Sound Latest Days Gestation 0 [email or web address] 12/09/2021 06/17/20 22 0 Pre-ramone Flowsheet Flowsheet Date 12/07/2021 Silva Score Blood Edema Fundus Height Fundus Units Glucose Ketones Leukocytes Nitrite Labor Signs Protein Cervic Dilation Cervic Effacement Cervic Station neg none none trace Type Weight in lbs Pre/Post Dialysis Refused Weight 282.375462698210 BP Diastolic BP Location Tested BP Systolic BP Type 86 141 Fetus Heart Rate Present A 160 Fetus Movement A No Comments Cady is a 21yo G1 at 12.4 f or care. She has anxiety and has been stable off meds for over a year. Based on BPs last visit and this visit, she has cHTN. Will do baseline labs, start ASA, discussed risks and testing. Labs and NIPT today. Flowsheet Date 01/04/2022 Silva Score Blood Edema Fundus Height Fundus Units Glucose Ketones Leukocytes Nitrite Labor Signs Protein Cervic Dilation Cervic Effacement Cervic Station neg none trace Type Weight in lbs Pre/Post Dialysis Refused Weight 282.710733764655 BP Diastolic BP Location Tested BP Systolic BP Type 84 132 Fetus Heart Rate Present A 150 Present Fetus Movement A Yes Comments PATIENT IS HAVING CRAMPING, NAUSEA AND VOMITING. increase hydration, reviewed precautions, f/u 4 week anatomy scan taking asa daily Flowsheet Date 02/01/2022 Silva Score Blood Edema Fundus Height Fundus Units Glucose Ketones Leukocytes Nitrite Labor Signs Protein Cervic Dilation Cervic Effacement Cervic Station Type Weight in lbs Pre/Post Dialysis Refused BP Diastolic BP Location Tested BP Systolic BP Type Fetus Heart Rate Present Fetus Movement Comments Flowsheet Date 02/01/2022 Silva Score Blood Edema Fundus Height Fundus Units Glucose Ketones Leukocytes Nitrite Labor Signs Protein Cervic Dilation Cervic Effacement Cervic Station neg trace none trace Type Weight in lbs Pre/Post Dialysis Refused Weight 289.243745770361 BP Diastolic BP Location Tested BP Systolic BP Type 79 135 Fetus Heart Rate Present A 135 Fetus Movement A Yes Comments Doing well, just occasional palpitations. NO CP or SOB with them, last only seconds to minutes. Precautions given. BP stable. US today anatomy complete and wnl except for LVOT, RVOT, profile. Repeat next visit. Growth for cHTN. Check re anxiety next visit. Flowsheet Date 03/01/2022 Silva Score Blood Edema Fundus Height Fundus Units Glucose Ketones Leukocytes Nitrite Labor Signs Protein Cervic Dilation Cervic Effacement Cervic Station Type Weight in lbs Pre/Post Dialysis Refused BP Diastolic BP Location Tested BP Systolic BP Type Fetus Heart Rate Present Fetus Movement Comments Flowsheet Date 03/01/2022 Silva Score Blood Edema Fundus Height Fundus Units Glucose Ketones Leukocytes Nitrite Labor Signs Protein Cervic Dilation Cervic Effacement Cervic Station neg trace 28 none trace Type Weight in lbs Pre/Post Dialysis Refused Weight 295.103183359577 BP Diastolic BP Location Tested BP Systolic BP Type 84 136 Fetus Heart Rate Present A 160 Fetus Movement A Yes Comments Doing well. Anxiety improvin g. GCT next visit. Discuss Tdap next visit. US today anatomy now complete and wnl. Flowsheet Date 03/29/2022 Silva Score Blood Edema Fundus Height Fundus Units Glucose Ketones Leukocytes Nitrite Labor Signs Protein Cervic Dilation Cervic Effacement Cervic Station Type Weight in lbs Pre/Post Dialysis Refused BP Diastolic BP Location Tested BP Systolic BP Type Fetus Heart Rate Present Fetus Movement Comments Flowsheet Date 03/29/2022 Silva Score Blood Edema Fundus Height Fundus Units Glucose Ketones Leukocytes Nitrite Labor Signs Protein Cervic Dilation Cervic Effacement Cervic Station neg none 32 none trace Type Weight in lbs Pre/Post Dialysis Refused Weight 302.542709358690 BP Diastolic BP Location Tested BP Systolic BP Type 80 142 Fetus Heart Rate Present A 1145 Fetus Movement A Yes Comments Doing well. Had COVID 6/7, t aking ASA. Growth 52%. Will schedule testing. Discussed and encouraged Tdap, will do. GCT today. Flowsheet Date 04/10/2022 Silva Score Blood Edema Fundus Height Fundus Units Glucose Ketones Leukocytes Nitrite Labor Signs Protein Cervic Dilation Cervic Effacement Cervic Station neg trace 35 none trace Type Weight in lbs Pre/Post Dialysis Refused Weight 305.690990166604 BP Diastolic BP Location Tested BP Systolic BP Type 80 151 80 148 Fetus Heart Rate Present A 145 Fetus Movement A Yes Comments Doing well, just back and pe lvic discomfort. GCT wnl. Will do Tdap soon. BP creeping up a little, had stressful week at work. Denies SCHROEDER/BV/EP. Will watch and if trend continues will start labetalol and repeat PIH labs. Flowsheet Date 04/26/2022 Silva Score Blood Edema Fundus Height Fundus Units Glucose Ketones Leukocytes Nitrite Labor Signs Protein Cervic Dilation Cervic Effacement Cervic Station Type Weight in lbs Pre/Post Dialysis Refused BP Diastolic BP Location Tested BP Systolic BP Type Fetus Heart Rate Present Fetus Movement Comments Flowsheet Date 04/26/2022 Silva Score Blood Edema Fundus Height Fundus Units Glucose Ketones Leukocytes Nitrite Labor Signs Protein Cervic Dilation Cervic Effacement Cervic Station Type Weight in lbs Pre/Post Dialysis Refused BP Diastolic BP Location Tested BP Systolic BP Type Fetus Heart Rate Present Fetus Movement Comments Flowsheet Date 04/26/2022 Silva Score Blood Edema Fundus Height Fundus Units Glucose Ketones Leukocytes Nitrite Labor Signs Protein Cervic Dilation Cervic Effacement Cervic Station neg trace 38 none trace Type Weight in lbs Pre/Post Dialysis Refused Weight 309.37630868828 BP Diastolic BP Location Tested BP Systolic BP Type 90 153 100 142 Fetus Heart Rate Present A 160 Fetus Movement A Yes Comments Doing well. BPs creeping up. PIH labs today, will start procardia xl 30. Us today EFW 75% with AC 95%. Briefly discussed delivery at 38w, 37 if PreE, risk of SD and long induction. Will preregister. FU weekly. Flowsheet Date 05/03/2022 Silva Score Blood Edema Fundus Height Fundus Units Glucose Ketones Leukocytes Nitrite Labor Signs Protein Cervic Dilation Cervic Effacement Cervic Station Type Weight in lbs Pre/Post Dialysis Refused BP Diastolic BP Location Tested BP Systolic BP Type Fetus Heart Rate Present Fetus Movement Comments Flowsheet Date 05/03/2022 Silva Score Blood Edema Fundus Height Fundus Units Glucose Ketones Leukocytes Nitrite Labor Signs Protein Cervic Dilation Cervic Effacement Cervic Station Type Weight in lbs Pre/Post Dialysis Refused BP Diastolic BP Location Tested BP Systolic BP Type Fetus Heart Rate Present Fetus Movement Comments Flowsheet Date 05/03/2022 Silva Score Blood Edema Fundus Height Fundus Units Glucose Ketones Leukocytes Nitrite Labor Signs Protein Cervic Dilation Cervic Effacement Cervic Station neg trace none trace Type Weight in lbs Pre/Post Dialysis Refused Weight 313.355911281331 BP Diastolic BP Location Tested BP Systolic BP Type 80 138 Fetus Heart Rate Present A 150 Fetus Movement A Yes Comments Doing fine except low back p ain, discussed comfort measures. Just started procardia and brought back 24 hour urine. NST nonreactive (baby sleepy then per pt) but BPP 8/. Precautions given, doing kick counts. Flowsheet Date 05/10/2022 Silva Score Blood Edema Fundus Height Fundus Units Glucose Ketones Leukocytes Nitrite Labor Signs Protein Cervic Dilation Cervic Effacement Cervic Station Type Weight in lbs Pre/Post Dialysis Refused Weight 310.681872105890 BP Diastolic BP Location Tested BP Systolic BP Type 82 138 Fetus Heart Rate Present Fetus Movement Comments Flowsheet Date 05/10/2022 Silva Score Blood Edema Fundus Height Fundus Units Glucose Ketones Leukocytes Nitrite Labor Signs Protein Cervic Dilation Cervic Effacement Cervic Station Type Weight in lbs Pre/Post Dialysis Refused BP Diastolic BP Location Tested BP Systolic BP Type Fetus Heart Rate Present Fetus Movement Comments Flowsheet Date 05/10/2022 Silva Score Blood Edema Fundus Height Fundus Units Glucose Ketones Leukocytes Nitrite Labor Signs Protein Cervic Dilation Cervic Effacement Cervic Station neg trace none trace Type Weight in lbs Pre/Post Dialysis Refused Weight 310.961858211265 BP Diastolic BP Location Tested BP Systolic BP Type 82 138 Fetus Heart Rate Present Fetus Movement A Yes Comments patient is having contractio ns, bleeding, low back pain, and swelling. precautions reviewed bpp 8/, vtx, call for preadmit f/u one week Flowsheet Date 05/17/2022 Silva Score Blood Edema Fundus Height Fundus Units Glucose Ketones Leukocytes Nitrite Labor Signs Protein Cervic Dilation Cervic Effacement Cervic Station Type Weight in lbs Pre/Post Dialysis Refused BP Diastolic BP Location Tested BP Systolic BP Type Fetus Heart Rate Present Fetus Movement Comments Flowsheet Date 05/17/2022 Silva Score Blood Edema Fundus Height Fundus Units Glucose Ketones Leukocytes Nitrite Labor Signs Protein Cervic Dilation Cervic Effacement Cervic Station Type Weight in lbs Pre/Post Dialysis Refused BP Diastolic BP Location Tested BP Systolic BP Type Fetus Heart Rate Present Fetus Movement Comments Flowsheet Date 05/17/2022 Silva Score Blood Edema Fundus Height Fundus Units Glucose Ketones Leukocytes Nitrite Labor Signs Protein Cervic Dilation Cervic Effacement Cervic Station neg trace none trace Type Weight in lbs Pre/Post Dialysis Refused Weight 320.086160586299 BP Diastolic BP Location Tested BP Systolic BP Type 83 131 Fetus Heart Rate Present A 155 Fetus Movement A Yes Comments Doing well ,just uncomfortab le. GBS next week, then will schedule IOL at 38w on 06/05. BPP 07/24. Flowsheet Date 05/24/2022 Silva Score Blood Edema Fundus Height Fundus Units Glucose Ketones Leukocytes Nitrite Labor Signs Protein Cervic Dilation Cervic Effacement Cervic Station Type Weight in lbs Pre/Post Dialysis Refused BP Diastolic BP Location Tested BP Systolic BP Type Fetus Heart Rate Present Fetus Movement Comments Flowsheet Date 05/24/2022 Silva Score Blood Edema Fundus Height Fundus Units Glucose Ketones Leukocytes Nitrite Labor Signs Protein Cervic Dilation Cervic Effacement Cervic Station Type Weight in lbs Pre/Post Dialysis Refused BP Diastolic BP Location Tested BP Systolic BP Type Fetus Heart Rate Present Fetus Movement Comments Flowsheet Date 05/24/2022 Silva Score Blood Edema Fundus Height Fundus Units Glucose Ketones Leukocytes Nitrite Labor Signs Protein Cervic Dilation Cervic Effacement Cervic Station neg none 42 none trace 0cm 50% Type Weight in lbs Pre/Post Dialysis Refused Weight 317.140631053359 BP Diastolic BP Location Tested BP Systolic BP Type 86 148 88 142 Fetus Heart Rate Present A 145 Fetus Movement A Yes Comments Doing fine. GBS done and dis cussed. US today 71%. BPP 07/24. Will schedule IOL 06/05 for cHTN.BP stable. Precautions given. Flowsheet Date 05/31/2022 Silva Score Blood Edema Fundus Height Fundus Units Glucose Ketones Leukocytes Nitrite Labor Signs Protein Cervic Dilation Cervic Effacement Cervic Station Type Weight in lbs Pre/Post Dialysis Refused BP Diastolic BP Location Tested BP Systolic BP Type Fetus Heart Rate Present Fetus Movement Comments Flowsheet Date 05/31/2022 Silva Score Blood Edema Fundus Height Fundus Units Glucose Ketones Leukocytes Nitrite Labor Signs Protein Cervic Dilation Cervic Effacement Cervic Station Type Weight in lbs Pre/Post Dialysis Refused BP Diastolic BP Location Tested BP Systolic BP Type Fetus Heart Rate Present Fetus Movement Comments Flowsheet Date 05/31/2022 Silva Score Blood Edema Fundus Height Fundus Units Glucose Ketones Leukocytes Nitrite Labor Signs Protein Cervic Dilation Cervic Effacement Cervic Station neg trace trace Type Weight in lbs Pre/Post Dialysis Refused Weight 319.86507414582 BP Diastolic BP Location Tested BP Systolic BP Type 82 150 77 135 Fetus Heart Rate Present A 145 Fetus Movement A Yes Comments Doing fine. IOL sunday. BPP 07/24. Precautions. IOL discussed. Likely cervidil. Flowsheet Date 07/18/2022 Silva Score Blood Edema Fundus Height Fundus Units Glucose Ketones Leukocytes Nitrite Labor Signs Protein Cervic Dilation Cervic Effacement Cervic Station Type Weight in lbs Pre/Post Dialysis Refused Weight 295.791263310611 BP Diastolic BP Location Tested BP Systolic BP Type 82 147 72 142 Fetus Heart Rate Present Fetus Movement Comments Menstrual History Last Menstrual Date Menses Monthly On Bcp Conception Prior Menses Frequency Hcg Plus Date Menarche Onset Age 1109/10/2021 Genetic Screening And Infection History Question Response Note Mental Retardation/Autism false Patient's Age Will Be 35 Yea rs Or Older At Estimated Date of Delivery false Thalassemia (Liberian, Malagasy, Mediterranean, Or Background): MCV < 80 false Neural Tube Defect (Meningom yelocele, Spina Bifida, Or Anencephaly) false Congenital Heart Defect false Down Syndrome false Will-Sachs (eg, Yazidism, Cajun , Lithuanian-Citizen Of [place]) false Carla Disease false Sickle Cell Disease Or Trait () false Hemophilia Or Other Blood Disorders false Muscular Dystrophy false Cystic Fibrosis false [place]'s Ch[place] false Intellectual Disability/Autism false If Yes, Was Person Tested For Fragile X? false Other Inherited Genetic Or C hromosomal Disorder false Maternal Metabolic Disorder (eg, Type 1 Diabetes, PKU) false Patient Or Baby's Father Had A Child With Defects Not Listed Above true FOB born with only one pectoral muscle Recurrent Loss, Or A Stillbirth false Medications (including Suppl ements, Vitamins, Herbs, OTC Drugs), Illicit/Recreational Drugs, Alcohol false If Yes, Agent(s) And Strength/Dosage false Any Other Genetic History false Live With Someone With TB Or Exposed To TB false Patient Or Partner Has Histo ry Of Genital Herpes false Rash Or Viral Illness Since Last Menstrual Period false History Of STD, Gonorrhea, C hlamydia, HPV, Syphilis false Other Infection History false History of HIV false History of Hepatitis false Prior GBS-infected child false Hemoglobinopathy Or Carrier false Other Structural Defect false Recent Travel History Outside of Country false Delivery Information Delivery Date Delivery Type Labor Anesthesia Weeks Gestation Incision Type Labor Labor Length Hrs Delivered By Post Complications Tubal Sterilization Discharge Date Comments 2 Induce d Regional-Ep idural 38.3 false [facility] MD CHTN, Gbs+ and Maternal obesity Discharge Information Feeding Method Contraceptive Method Maternal HG B and HCT Levels Breast Ob Episode Information Episode Created Date Number of Fetuses Patient Bloodtype Patient rh Status Prepregnancy Weight lbs Domestic Partner Domestic Partner Phone Father Name [employer] Status 06/15/20 23 1 AB Positive 320 CLOSED Fetus Data First Name Last Name Admitted to NICU Weight (g) Sex Living Outcome Pediatric Complications Fetus ID Race Codes Race Delivery Type 3572.03 7 M true Full Term [id number] Primary Problems Problem Notes declines COVID vaccinesshort interval ( 05/2022) Problem Name Start Date End Date Resolution Snomed Code Not e SARS-CoV-2 08/30/2023 119263064 ASA & se rial growth Anxiety [id number] off meds f or one year Prediabetes 05/15/[id number] at 20w, stop metformin 3 d prior Severe obesity complicating [id number] bmi 54 Benign essential hypertension complicating , childbirth and the puerperium [id number] ASA, baseline labs, deliver 38w, ante testing, growth US, nifedipine 60 q day Adonis Calculation Initial Adonis Date Initial Exam Date Initial Exam Provider Initial Ultrasound Date Last Menstrual Period Date Ultra Sound Weeks Gestation 12/23/2023 06/15/2023 05/15/2023 03/18/2023 8 Eighteen To Twenty Week Adonis Update Ultra Sound Date Fundal Height At Umbil Quickening Date Ultra Sound Latest Weeks Gestation Final Adonis Confirmed By Final Adonis Confirmed Date Final Adonis Date Ultra Sound Latest Days Gestation 0 [email or web address] 06/15/2023 12/23/19 24 0 Pre-ramone Flowsheet Flowsheet Date 06/15/2023 Silva Score Blood Edema Fundus Height Fundus Units Glucose Ketones Leukocytes Nitrite Labor Signs Protein Cervic Dilation Cervic Effacement Cervic Station neg none none trace Type Weight in lbs Pre/Post Dialysis Refused Weight 319.84617782597 BP Diastolic BP Location Tested BP Systolic BP Type 94 149 Fetus Heart Rate Present A 165 Fetus Movement A Yes Comments Cady is a at 12.5 f or care. She has cHTN on nifedipine, preDM, anxiety (no meds), and a BMI of 54. We discussed risks with all of these. She will start ASA now, continue nifedipine, do baseline PIH labs, plan testing and growth US and a 38w delivery. This is also a short interval . She will do an early GCT at 20w unless her A1C indicates we should do it even sooner. Normal NT today. Labs and NIPT today. She declines covid vaccines and is aware of the risks. Flowsheet Date 07/13/2023 Silva Score Blood Edema Fundus Height Fundus Units Glucose Ketones Leukocytes Nitrite Labor Signs Protein Cervic Dilation Cervic Effacement Cervic Station Type Weight in lbs Pre/Post Dialysis Refused Weight 318.153926773895 BP Diastolic BP Location Tested BP Systolic BP Type 86 142 Fetus Heart Rate Present A 150 Fetus Movement A Yes Comments BP at home 120s/70s, no preE sx, taking baby aspirin and procardia. GCT next week. Starting to feel flutters. No contractions or LOF. Flowsheet Date 08/09/2023 Silva Score Blood Edema Fundus Height Fundus Units Glucose Ketones Leukocytes Nitrite Labor Signs Protein Cervic Dilation Cervic Effacement Cervic Station Type Weight in lbs Pre/Post Dialysis Refused BP Diastolic BP Location Tested BP Systolic BP Type Fetus Heart Rate Present Fetus Movement Comments Flowsheet Date 08/09/2023 Silva Score Blood Edema Fundus Height Fundus Units Glucose Ketones Leukocytes Nitrite Labor Signs Protein Cervic Dilation Cervic Effacement Cervic Station Type Weight in lbs Pre/Post Dialysis Refused Weight 317.443257042112 BP Diastolic BP Location Tested BP Systolic BP Type 80 130 Fetus Heart Rate Present A 158 Fetus Movement Comments Doing well, no issues. Baby active. No ctx, LOF, VB. Increased physiologic discharge. BP wnl at home. Anatomy complete and normal today. Early GCT today, discussed plan pending results. Flowsheet Date 09/14/2023 Silva Score Blood Edema Fundus Height Fundus Units Glucose Ketones Leukocytes Nitrite Labor Signs Protein Cervic Dilation Cervic Effacement Cervic Station Type Weight in lbs Pre/Post Dialysis Refused BP Diastolic BP Location Tested BP Systolic BP Type Fetus Heart Rate Present Fetus Movement Comments Flowsheet Date 09/14/2023 Silva Score Blood Edema Fundus Height Fundus Units Glucose Ketones Leukocytes Nitrite Labor Signs Protein Cervic Dilation Cervic Effacement Cervic Station none none trace Type Weight in lbs Pre/Post Dialysis Refused Weight 321.176437941124 BP Diastolic BP Location Tested BP Systolic BP Type 85 135 Fetus Heart Rate Present A 143 Fetus Movement A Yes Comments Good movement. No ctx, LOF, VB. Getting over COVID, feeling better. Continues bASA. Serial growths. Growth US today, EFW 67%. Passed early 1 hour, will repeat at next visit. Flowsheet Date 10/12/2023 Silva Score Blood Edema Fundus Height Fundus Units Glucose Ketones Leukocytes Nitrite Labor Signs Protein Cervic Dilation Cervic Effacement Cervic Station Type Weight in lbs Pre/Post Dialysis Refused BP Diastolic BP Location Tested BP Systolic BP Type Fetus Heart Rate Present Fetus Movement Comments Flowsheet Date 10/12/2023 Silva Score Blood Edema Fundus Height Fundus Units Glucose Ketones Leukocytes Nitrite Labor Signs Protein Cervic Dilation Cervic Effacement Cervic Station Type Weight in lbs Pre/Post Dialysis Refused Weight 326.916782905688 BP Diastolic BP Location Tested BP Systolic BP Type 80 134 Fetus Heart Rate Present A 138 Fetus Movement A Yes Comments Baby active, no LOF/VB/ctx. Repeat GCT today, still taking metformin. Start testing at 32 weeks for cHTN on meds and obesity. Growth today 82%, ALONZO wnl. Continues on bASA. Flowsheet Date 10/30/2023 Silva Score Blood Edema Fundus Height Fundus Units Glucose Ketones Leukocytes Nitrite Labor Signs Protein Cervic Dilation Cervic Effacement Cervic Station Type Weight in lbs Pre/Post Dialysis Refused BP Diastolic BP Location Tested BP Systolic BP Type Fetus Heart Rate Present Fetus Movement Comments Flowsheet Date 10/30/2023 Silva Score Blood Edema Fundus Height Fundus Units Glucose Ketones Leukocytes Nitrite Labor Signs Protein Cervic Dilation Cervic Effacement Cervic Station Type Weight in lbs Pre/Post Dialysis Refused BP Diastolic BP Location Tested BP Systolic BP Type Fetus Heart Rate Present Fetus Movement Comments Flowsheet Date 10/30/2023 Silva Score Blood Edema Fundus Height Fundus Units Glucose Ketones Leukocytes Nitrite Labor Signs Protein Cervic Dilation Cervic Effacement Cervic Station neg none none trace Type Weight in lbs Pre/Post Dialysis Refused Weight 327.935175616897 BP Diastolic BP Location Tested BP Systolic BP Type 84 140 80 138 Fetus Heart Rate Present Fetus Movement A Yes Comments Good movement. No ctx, LOF, VB. No preE symptoms. Passed GCT. Getting Tdap vaccine Sunday. BPP 10/10 today, continue weekly testing. BP normotensive to mild range at home. Warning signs reviewed. Flowsheet Date 11/06/2023 Silva Score Blood Edema Fundus Height Fundus Units Glucose Ketones Leukocytes Nitrite Labor Signs Protein Cervic Dilation Cervic Effacement Cervic Station Type Weight in lbs Pre/Post Dialysis Refused BP Diastolic BP Location Tested BP Systolic BP Type Fetus Heart Rate Present Fetus Movement Comments Flowsheet Date 11/06/2023 Silva Score Blood Edema Fundus Height Fundus Units Glucose Ketones Leukocytes Nitrite Labor Signs Protein Cervic Dilation Cervic Effacement Cervic Station Type Weight in lbs Pre/Post Dialysis Refused Weight 324.373591228643 BP Diastolic BP Location Tested BP Systolic BP Type 86 136 Fetus Heart Rate Present A 145 Fetus Movement A Yes Comments Good movement. No ctx, LOF, VB. No preE symptoms. BPP 10/10. BP normotensive at home. Given well controlled cHTN on Procardia XL, plan for induction 12/04 at 37 weeks. Flowsheet Date 11/06/2023 Silva Score Blood Edema Fundus Height Fundus Units Glucose Ketones Leukocytes Nitrite Labor Signs Protein Cervic Dilation Cervic Effacement Cervic Station Type Weight in lbs Pre/Post Dialysis Refused BP Diastolic BP Location Tested BP Systolic BP Type Fetus Heart Rate Present Fetus Movement Comments Flowsheet Date 11/13/2023 Silva Score Blood Edema Fundus Height Fundus Units Glucose Ketones Leukocytes Nitrite Labor Signs Protein Cervic Dilation Cervic Effacement Cervic Station Type Weight in lbs Pre/Post Dialysis Refused BP Diastolic BP Location Tested BP Systolic BP Type Fetus Heart Rate Present Fetus Movement Comments Flowsheet Date 11/13/2023 Silva Score Blood Edema Fundus Height Fundus Units Glucose Ketones Leukocytes Nitrite Labor Signs Protein Cervic Dilation Cervic Effacement Cervic Station Type Weight in lbs Pre/Post Dialysis Refused BP Diastolic BP Location Tested BP Systolic BP Type Fetus Heart Rate Present Fetus Movement Comments Flowsheet Date 11/13/2023 Silva Score Blood Edema Fundus Height Fundus Units Glucose Ketones Leukocytes Nitrite Labor Signs Protein Cervic Dilation Cervic Effacement Cervic Station Type Weight in lbs Pre/Post Dialysis Refused Weight 333.770124553504 BP Diastolic BP Location Tested BP Systolic BP Type 90 134 Fetus Heart Rate Present A 145 Fetus Movement A Yes Comments Good movement. No ctx, LOF, VB. No preE symptoms. Some pelvic pain. RSV vaccine discussed. BPP 07/24. Was induced with first baby. Plan for AM induction on 12/04. Would like shorter shifts at work, note given. Desires IUD for contraception post delivery r/b/a of mirena vs copper discussed and patient would like a mirena IUD. Flowsheet Date 11/20/2023 Silva Score Blood Edema Fundus Height Fundus Units Glucose Ketones Leukocytes Nitrite Labor Signs Protein Cervic Dilation Cervic Effacement Cervic Station Type Weight in lbs Pre/Post Dialysis Refused BP Diastolic BP Location Tested BP Systolic BP Type Fetus Heart Rate Present Fetus Movement Comments Flowsheet Date 11/20/2023 Silva Score Blood Edema Fundus Height Fundus Units Glucose Ketones Leukocytes Nitrite Labor Signs Protein Cervic Dilation Cervic Effacement Cervic Station Type Weight in lbs Pre/Post Dialysis Refused BP Diastolic BP Location Tested BP Systolic BP Type Fetus Heart Rate Present Fetus Movement Comments Flowsheet Date 11/20/2023 Silva Score Blood Edema Fundus Height Fundus Units Glucose Ketones Leukocytes Nitrite Labor Signs Protein Cervic Dilation Cervic Effacement Cervic Station Type Weight in lbs Pre/Post Dialysis Refused Weight 334.128029562333 BP Diastolic BP Location Tested BP Systolic BP Type 79 138 Fetus Heart Rate Present A 140 Fetus Movement A Yes Comments Has UTI, taking antibiotics. Pain improving. No fevers or chills. Baby active. No cramping or bleeding. BPP 10/10 today. GBS next visit. Doing better with shorter shifts at work. RTC 1 week Flowsheet Date 11/27/2023 Silva Score Blood Edema Fundus Height Fundus Units Glucose Ketones Leukocytes Nitrite Labor Signs Protein Cervic Dilation Cervic Effacement Cervic Station Type Weight in lbs Pre/Post Dialysis Refused BP Diastolic BP Location Tested BP Systolic BP Type Fetus Heart Rate Present Fetus Movement Comments Flowsheet Date 11/27/2023 Silva Score Blood Edema Fundus Height Fundus Units Glucose Ketones Leukocytes Nitrite Labor Signs Protein Cervic Dilation Cervic Effacement Cervic Station Type Weight in lbs Pre/Post Dialysis Refused BP Diastolic BP Location Tested BP Systolic BP Type Fetus Heart Rate Present Fetus Movement Comments Flowsheet Date 11/27/2023 Silva Score Blood Edema Fundus Height Fundus Units Glucose Ketones Leukocytes Nitrite Labor Signs Protein Cervic Dilation Cervic Effacement Cervic Station none none neg 0cm 50% -3 Type Weight in lbs Pre/Post Dialysis Refused Weight 333.509079107963 BP Diastolic BP Location Tested BP Systolic BP Type 78 141 Fetus Heart Rate Present A 140 Fetus Movement A Yes Comments Good movement. No ctx, LOF, VB. EFW 92% today, BPP 8/10 (NRNST). Discussed induction for next week, plan for cytotec. Labor and preeclampsia precautions given. GBS collected today. Menstrual History Last Menstrual Date Menses Monthly On Bcp Conception Prior Menses Frequency Hcg Plus Date Menarche Onset Age 0603/18/2023 Genetic Screening And Infection History Question Response Note Mental Retardation/Autism false Patient's Age Will Be 35 Years Or Older At Estim ated Date of Delivery false Thalassemia (Liberian, Malagasy, Mediterranean, Or Background): MCV < 80 false Neural Tube Defect (Meningomyelocele, Spina Bifi da, Or Anencephaly) false Congenital Heart Defect false Down Syndrome false Will-Sachs (eg, Yazidism, Cajun, Lithuanian-Citizen Of [place]) f alse Carla Disease false Sickle Cell Disease Or Trait () false Hemophilia Or Other Blood Disorders false Muscular Dystrophy false Cystic Fibrosis false Mary's Chorea false Intellectual Disability/Autism false If Yes, Was Person Tested For Fragile X? false Other Inherited Genetic Or Chromosomal Disorder false Maternal Metabolic Disorder (eg, Type 1 Diabetes , PKU) false Patient Or Baby's Father Had A Child With Defects Not Listed Above false Recurrent Loss, Or A Stillbirth false Medications (including Suppl ements, Vitamins, Herbs, OTC Drugs), Illicit/Recreational Drugs, Alcohol false If Yes, Agent(s) And Strength/Dosage false Any Other Genetic History false Live With Someone With TB Or Exposed To TB false Patient Or Partner Has History Of Genital Herpes false Rash Or Viral Illness Since Last Menstrual Perio d false History Of STD, Gonorrhea, Chlamydia, HPV, Syphi lis false Other Infection History false History of HIV false History of Hepatitis false Prior GBS-infected child false Hemoglobinopathy Or Carrier false Other Structural Defect false Recent Travel History Outside of Country false Delivery Information Delivery Date Delivery Type Labor Anesthesia Weeks Gestation Incision Type Labor Labor Length Hrs Delivered By Post Complications Tubal Sterilization Discharge Date Comments 4 Induce d Regional-Ep idural 37.3 Low Transvers e false Christen Barrett MD c/s for nonreassu ring fhts & arrest of dilation; Anxiety,B enign essential hypertens ion complicat ing , childbirt h and the puerperiu m,Prediab etes,SARS -CoV-2,Se mare obesity complicat ing Discharge Information Feeding Method Contraceptive Method Maternal HG B and HCT Levels
[2024-11-20 06:53] VITALS: BP 150/81; PULSE 78; RESP 16; TEMP 36.8; O2SAT 100
--- OUTSIDE RECORDS SUMMARY | 2024-11-20 09:25 | XMS_ITS | Referral Summary ---
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 Gender Identity Not on file Sexual Orientation Not on file Last Filed Vital Signs Vital Sign Reading Time Taken Comments Blood Pressure 110/60 07/15/2020 11:28 AM CDT Pulse 76 07/15/2020 11:28 AM CDT Temperature - - Respiratory Rate 12 07/15/2020 11:2 8 AM CDT Oxygen Saturation 99% 11/06/2014 4:30 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
--- OUTSIDE RECORDS SUMMARY | 2024-11-20 09:25 | XMS_ITS | Clinical Summary ---
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 Gender Identity Not on file Sexual Orientation Not on file Obstetrics History Last Filed Vital Signs Vital Sign Reading Time Taken Comments Blood Pressure 110/60 07/15/2020 11:28 AM CDT Pulse 76 07/15/2020 11:28 AM CDT Temperature - - Respiratory Rate 12 07/15/2020 11:2 8 AM CDT Oxygen Saturation 99% 11/06/2014 4:30 AM TRAY DRIER Inhaled Oxygen Concentration - - Weight 134.8 [...] 2024 8, 07/24/2016, 07/26/2015, Additional history exists Hepatitis B Screening Completed 2000 , 2000, 2000 Pneumococcal vaccine <65 Completed 001, 2000, 2000, Additional history exists HPV Vaccines Completed 12/08/2011, 07/15, 05/30/2011 Insurance [facility] Care Teams Tetryl Blender Operator Relationship Specialty Start Date End Date Ana Rosa Tejeda PA [address] [place] [address] PCP - General Physician Vibration Engineer 06/18/20
--- OUTSIDE RECORDS SUMMARY | 2024-11-20 09:26 | XMS_ITS | CONTINUITY OF CARE DOCUMENT ---
Author Name faizan gloria Address Unknown Organization [facility] Office Address [address] [place] [address] Phone [phone] Care Team Providers Care Reflector Driller And Deburrer Name Role Phone Ethan CHILDERS, Adarsh Unavailable Adarsh Long MD Unavailable [phone] INSURANCE PROVIDERS Payer name Policy type / Coverage type [employer]ia [employer] party ID [place] MEDICAID (2) Medicaid [id number]
--- NOTE | 2024-11-20 09:36 | ED_ITS ---
HPI - URI/Sore Throat General Chief Complaint: Upper Respiratory Infection Stated Complaint: chills, bodyaches, sore throat, cough Time Seen by Provider: 11/20/24 08:58 Source: patient Mode of arrival: ambulatory Limitations: no limitations History of Present Illness HPI Narrative: Patient is a 24-year-old female who presents the ED with report of URI symptoms. Patient reports having chills, body aches, cough, sore throat, congestion over the last couple of days. Reports her children have been sick with similar symptoms. Has been taking DayQuil for her symptoms without much improvement. Denies known fever. Denies shortness of breath. Denies nausea, vomiting. Related Data Home Medications ?Medication ?Instructions ?Recorded ?Confirmed ?Last Taken ?Type vit 168-iron 27 mg-folic 800 cap PO 1XD 12/03/21 12/05/23 11/17/23 20:00 History acid 800 mcg-omega3 235 mg capsule (One-A-Day -1) metformin 500 mg tablet 500 mg PO BID 10/09/23 12/05/23 11/17/23 20:00 History nifedipine 60 mg tablet,extended 60 mg PO DAILY 10/09/23 12/05/23 11/17/23 10:00 History release 24 hr Allergies Allergy/AdvReac Type Severity Reaction Status Date / Time No Known Allergies Allergy Mild Verified 11/20/24 09:50 Review of Systems Review of Systems: All systems reviewed & are unremarkable except as noted in HPI. All systems reviewed & are unremarkable except as noted in HPI and below PMFSH Past Medical History Medical History IUP (intrauterine ), incidental Depression Anxiety DM (diabetes mellitus) Hypertension Family History Family History Mother Heart disease Lymphedema Hypertension Diabetes mellitus Father Diabetes mellitus Hypertension Sibling Asthma Social History Social History Smoking status: Never smoker Second hand tobacco smoke exposure: No Substance use: never Do You Feel Safe in your Home?: Yes Lack of Transportation: No Lack of Food: Never True Current Housing: I Have Housing Concerned About Future Housing: No Difficulty Paying Gas/Electric Bills: No Difficulty Paying for Meds: No Currently Unemployed: No Education: High School Diploma/GED Difficulty w/ Childcare or Family Care: No Spiritual care concerns: No Exam Narrative: GENERAL: Well appearing, morbidly obese with BMI of 51.4, non-toxic, in no acute distress. HEAD: Normocephalic, atraumatic. RESPIRATORY: Airway patent, respirations nonlabored. Clear to auscultation bilaterally, no rales, rhonchi, wheezing. No focal lung sounds. Occasional coughing on exam. CARDIOVASCULAR: Regular rate and rhythm without murmurs, rubs, or gallops. MUSCULOSKELETAL: Moves all extremities. No gross deformities. SKIN: Warm, dry, normal color. NEURO: A&O X3. Speech clear. PSYCHIATRIC: Appropriate mood and affect. Normal interaction. Course Vital Signs Vital signs: Vital Signs Temperature 98.3 F 11/20/24 06:53 Pulse Rate 78 11/20/24 06:53 Respiratory Rate 16 11/20/24 06:53 Blood Pressure 150/81 H 11/20/24 06:53 Pulse Oximetry 100 11/20/24 06:53 Oxygen Delivery Room Air 11/20/24 06:53 Temperature 98.3 F 11/20/24 06:53 Pulse Rate 73 11/20/24 09:52 Respiratory Rate 16 11/20/24 09:52 Blood Pressure 143/86 H 11/20/24 09:52 Pulse Oximetry 98 11/20/24 09:52 Oxygen Delivery Room Air 11/20/24 09:51 MDM - URI/Sore Throat MDM Narrative Medical decision making narrative: Patient presented to ED with several day history of URI symptoms. Vital signs are stable upon arrival. Patient is afebrile here. In no acute distress. Does report that her children have been sick with similar symptoms. Flu, rsv, covid, strep negative. Discussed laboratory findings with patient. Discussed likelihood of viral URI, continued management of such. Feel she is safe for d/c home. Will rx issa perlcharles for home. Given return precautions. She agrees w/ plan. D/C in stable condition. Given work note. Medical Records Attestation: I reviewed the patient's medical records. Lab Data Attestation: I reviewed the patient's lab results. Labs: Lab Results 11/20/24 Range/Units 09:46 Influenza A (RT-PCR) Negative (Negative) Influenza B (RT-PCR) Negative (Negative) RSV (RT-PCR) Negative (Negative) SARS-CoV-2 RNA (RT-PCR) Negative (Negative) Group A Strep (PCR) Not detected (Negative) Discharge Plan Discharge Clinical Impression: Upper respiratory infection Qualifiers: URI type: unspecified URI Qualified Code(s): J06.9 - Acute upper respiratory infection, unspecified Patient Disposition: Home, Self-Care Condition: Stable Instructions: Antibiotic Form, Upper Respiratory Infection (ED), Viral Syndrome (ED), Cold Symptoms (ED) Additional Instructions: Your testing for influenza, COVID, RSV, strep was negative. You likely have a viral upper respiratory infection. Stay well-hydrated at home. Recommend electrolyte rich fluids, Gatorade, Pedialyte, body armor. Utilize Tessalon Perles as needed for cough. Recommend Tylenol and Ibuprofen for discomfort and/or fevers. Recommend [id number] cough and cold medicines for symptom relief, Delsym, Mucinex, DayQuil, NyQuil, Sudafed, Robitussin, TheraFlu. Follow with primary care doctor upon resolution of symptoms. Return to the ED if you experience chest pain, difficulty breathing, unable to keep down food or drink, severe pain, or any other symptoms of concern. Patient Language: Bengali Prescriptions: New benzonatate 200 mg capsule 200 mg PO TID PRN (Reason: cough) Qty: 20 0RF No Action metformin 500 mg tablet 500 mg PO BID nifedipine 60 mg tablet extended release 24hr 60 mg PO DAILY One-A-Day -1 27 mg iron- 800 mcg-235 mg Capsule 800 cap PO 1XD Follow-up/Referrals: Gregory,JJ Dorantes [Primary Care Provider] - Stand Alone Forms: Work/School Release IP Time of Disposition: 10:41
[2024-11-20] MEDS: IBUPROFEN 600 MG TABLET PO (09:50)
[2024-11-20] MEDS: BENZONATATE 100 MG CAPSULE 200 MG PO (09:50)
[2024-11-20 09:51] VITALS: O2SAT 98
[2024-11-20 09:52] VITALS: BP 143/86; PULSE 73; RESP 16; O2SAT 98
[2024-11-20 10:19] LABS: Strep Group A RT-PCR NOT DETECTED (Negative)
[2024-11-20 10:37] LABS: Influenza A QL RT-PCR Negative (Negative); Influenza B QL RT-PCR Negative (Negative); RSV RNA, RT-PCR Negative (Negative); SARS-CoV-2 RNA PCR Negative (Negative)
== END 2024-11-20 10:49 | disposition home or self-care (01) ==
PROVIDERS: Emergency Provider Physician Assistant; PCP Physician Assistant
DX: J06.9 Acute upper respiratory infection, unspecified (principal); Z20.822 Contact with and (suspected) exposure to COVID-19; I10 Essential (primary) hypertension; E11.9 Type 2 diabetes mellitus without complications; Z79.84 Long term (current) use of oral hypoglycemic drugs
CPT/HCPCS: 87637; 87651; 99283; A9270

== ENCOUNTER 2025-07-01 11:00 | Outpatient (RCR) | payer OTHER, SELFPAY ==
--- NOTE | 2025-05-27 14:29 | OPREHPOC ---
Outpatient Therapy Plan of Care This is a Multidisciplinary Plan of Care that may contain components documented by all disciplines (PT, OT, and ST.) PT Problem 1 PT Problem #1 Knowledge Deficit PT Goal 1 Goal / Goal Update Patient to demonstrate independence with HEP for improved self-reliance of symptom management. Target Visit 4 PT Problem 2 PT Problem #2 Pain PT Goal 1 Goal / Goal Update 1. Patient to decrease subjective reports of pain to <5/10 for improved ADL tolerance. 2. Patient will score </=35% disability on the QuickDash to demonstrate meaningful improvement in patient's quality of life. 3. Patient to report 50% improvement in quantity and quality of sleep with minimal shoulder pain. Target Visit 8 PT Problem 3 PT Problem #3 Impaired Strength PT Goal 1 Goal / Goal Update Patient to demonstrate L shoulder strength >=4+/5 for improved functional stability required for ADLs. Target Visit 8 PT Problem 4 PT Problem #4 Impaired Range of Motion PT Goal 1 Goal / Goal Update 1. Pt to demonstrate an increase of L shoulder flexion AROM to >=160 deg to improve the ability to reach overhead. 2. Pt to demonstrate an increase of L shoulder abduction AROM to >=140 deg. Target Visit 8
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
--- NOTE | 2025-07-01 11:43 | OPREHPOC ---
Outpatient Therapy Plan of Care This is a Multidisciplinary Plan of Care that may contain components documented by all disciplines (PT, OT, and ST.) PT Problem 1 PT Problem #1 Knowledge Deficit PT Goal 1 Goal / Goal Update Patient to demonstrate independence with HEP for improved self-reliance of symptom management. 07/01/25 unable to progress due to cont. pain Target Visit 4 Progress Partially Met PT Problem 2 PT Problem #2 Pain PT Goal 1 Goal / Goal Update 1. Patient to decrease subjective reports of pain to <5/10 for improved ADL tolerance. 2. Patient will score </=35% disability on the QuickDash to demonstrate meaningful improvement in patient's quality of life. 3. Patient to report 50% improvement in quantity and quality of sleep with minimal shoulder pain. 07/01/25 1. no change in severity of symptoms 2. not assessed this date 3. no change Target Visit 8 Progress Not Met PT Problem 3 PT Problem #3 Impaired Strength PT Goal 1 Goal / Goal Update Patient to demonstrate L shoulder strength >=4+/5 for improved functional stability required for ADLs. 07/01/25 1. 3-/5 all motions Target Visit 8 Progress Not Met PT Problem 4 PT Problem #4 Impaired Range of Motion PT Goal 1 Goal / Goal Update 1. Pt to demonstrate an increase of L shoulder flexion AROM to >=160 deg to improve the ability to reach overhead. 2. Pt to demonstrate an increase of L shoulder abduction AROM to >=140 deg. 07/01/25 1. 112 deg 2. 88 deg Target Visit 8 Progress Not Met
--- NOTE | 2025-07-01 11:43 | PTOPPROG ---
Assessment and note entered by Sharon Nielsen, PT Evaluation Information Assessment Status Progress ICD-10 Condition Codes (PT) Pain in left shoulder M25.512 Subjective Information Pt has an ortho appt on 07/03 to hopefully get an MRI approval for her shoulder. She reports her shoulder may be feeling better by 25% but attributes it to time. She does not report anything we have done in PT has helped her shoulder feel better. Sxs made worse with: lifting/carrying, keeping arm elevated too long, disrupted sleep, holding her son for prolonged period, any type of reaching/ mobility, putting her bra on, reaching into pocket Assessment PT Clinical Summary Patient's condition has made little to no advancements in symptoms, mobility, strength, and functional tolerance to ADLs. Despite skilled interventions the pt has poor tolerance to physical therapy after completing 6 sessions. She is unable to tolerate PROM this date due to muscle guarding. Her AROM and strength have regressed since her initial evaluation. The patient would benefit from further investigation into her current signs and symptoms such as imaging and an orthopedic consult. Patient would benefit from continued skilled PT services to address the above listed impairments while awaiting further diagnostics, facilitating a return to her PLOF, working towards pain management and finding positions of comfort. Plan of Care Interventions Electrical Stimulation,Hot Pack/Cold Pack,Manual Therapy,Neuro Re-education,Patient/Caregiver Education,Therapeutic Activities,Therapeutic Exercise,Self-Care/Home Management Other Interventions taping, cupping PT Services Indicated Yes Treatment Frequency and 1x/wk for 6 sessions Duration These treatments will address the objective and functional deficits as defined above. The patient will be advanced safely and appropriately in order for the patient to progress towards his/her prior level of function. Additional exercises will be introduced and as well as a comprehensive home exercise program upon discharge, if needed, ?to ensure carryover of functional gains achieved in the clinic. This treatment plan has been reviewed and agreement upon by the patient.
--- NOTE | 2025-08-31 13:41 | PCPTNOTE ---
Patient last present for physical therapy on 06/20/25. Patient has not returned and is discharged for therapy at this time. Please refer to last treatment note for discharge status.
== END 2025-08-25 23:59 | disposition home or self-care (01) ==
LOC: ANHPT 11:00
PROVIDERS: PCP Physician Assistant; Visit Provider Nurse Practitioner Family
DX: M25.512 Pain in left shoulder (principal); G89.29 Other chronic pain
CPT/HCPCS: 97014; 97032; 97110; 97140; 97161; 97530; G0283